=== PATIENT | male | born 1965 | race Two or more races ===

== ENCOUNTER 2018-12-27 10:53 | Day surgery (SDC) | payer OTHER ==
[~2018-12-27] VITALS: Ht 172.7 cm; Wt 132.9 kg
--- NOTE | 2018-12-27 11:15 | NUR ---
PT ADMITTED TO [facility]. AGREES WITH PLANNED SURGER. MEDS, ALLERGIES AND HX REVIEWED. LUNG SOUNDS CLEAR.
--- NOTE | 2018-12-27 12:04 | NUR ---
12/27/18 1204 Belkis Flores ANCEF 3 GRAMS IVPB GIVEN AT 1136.
--- NOTE | 2018-12-27 13:31 | NUR ---
FROM OR TO PACU AT 1323 VSS PATIENT ASLEEP AND LMA IN PLACE AND FACE TENT. MERARI WRAP IN PLACE CDI ELEVATED ON PILLOWS
--- NOTE | 2018-12-27 14:08 | NUR ---
FIRST DOSE OF PAIN RX GIVEN AT 1345 SECOND DOSE GIVEN AT 1400 EACH DOSE OF 50 MCG TOTRATED FOR PAIN DOWN TO 4/10. AT 1405 CARE TURNED OVER TO Sindy BOTELLO AFTER REPORT GIVEN
--- NOTE | 2018-12-27 15:01 | NUR ---
Patient up to Ambulate independently. Gait steady. NWB, PIVOTS AND TRANSFERS W/O ASSIST TO WC. Discharge instructions reviewed with patient. Patient verbalizes understanding. Copy given to patient to take home. Patient States Post-Procedure ride home has been arranged. Discharged via wheelchair to private car for ride home.
== END 2018-12-27 23:18 | disposition home or self-care (01) ==
LOC: ORSCMMR 10:53 → ORD 12:30 → ORSCMMR 12:30
PROVIDERS: Orthopaedic Surgery
PROC: 0QSK04Z Reposition Left Fibula with Internal Fixation Device, Open Approach (ICD-10-PCS; principal; 2018-12-27 11:30)
DX: S82.832A Other fracture of upper and lower end of left fibula, initial encounter for closed fracture (principal); I10 Essential (primary) hypertension; E66.01 Morbid (severe) obesity due to excess calories; Z68.41 Body mass index [BMI] 40.0-44.9, adult
CPT/HCPCS: C1713; J0690; J1100; J1885; J2250; J2370; J2405; J3010; J7120

== ENCOUNTER 2019-11-16 10:15 | Emergency (ER) | payer OTHER ==
[~2019-11-16] VITALS: Ht 172.7 cm; Wt 131.5 kg
[2019-11-16 10:55] LABS: BASOPHILS ABSOLUTE AUTO 0.04 K/mm3 (0.00-0.23); BASOPHILS PERCENT AUTO 1 % (0-2); EOSINOPHILS ABSOLUTE AUTO 0.28 K/mm3 (0.00-0.68); EOSINOPHILS PERCENT AUTO 4 % (0-6); Hematocrit 47.7 % (37.0-53.0); Hemoglobin 16.4 g/dL (13.5-17.5); IMMATURE GRAN ABSOLUTE AUTO 0.01 K/mm3 (0.00-0.10); IMMATURE GRAN PERCENT AUTO 0 % (0-1); LYMPHOCYTES ABSOLUTE AUTO 1.42 K/mm3 (0.84-5.20); LYMPHOCYTES PERCENT AUTO 20 % (21-46); MONOCYTES ABSOLUTE AUTO 0.66 K/mm3 (0.16-1.47); MONOCYTES PERCENT AUTO 9 % (4-13); Mean Corpuscular HGB Conc 34.4 g/dL (31.5-36.5); Mean Corpuscular Volume 102 fL (80-100); Mean Platelet Volume 9.9 fL (9.1-12.4); NEUTROPHILS ABSOLUTE AUTO 4.63 K/mm3 (1.96-9.15); NEUTROPHILS PERCENT AUTO 66 % (41-73); Platelet Count 158 K/mm3 (150-400); RDW Coefficient Variation 12.9 % (11.7-14.2); Red Blood Cell Count 4.68 M/mm3 (4.30-5.90); White Blood Cell Count 7.04 K/mm3 (4.00-11.30)
[2019-11-16 11:12] LABS: Alanine Aminotransfer (ALT/SGP 40 U/L (12-78); Albumin, Blood 3.6 g/dL (3.4-5.0); Albumin/Globulin Ratio 0.7 (0.8-1.8); Alk Phos 85 U/L (50-136); Anion Gap 7 mmol/L (6-16); Aspartate Aminotrans (AST/SGOT 54 U/L (12-37); Bilirubin, Total 2.1 mg/dL (0.1-1.0); Blood Urea Nitrogen 10 mg/dL (8-24); CO2, Blood 22 mmol/L (21-32); Calcium, Blood 9.1 mg/dL (8.5-10.1); Chloride, Blood 105 mmol/L (98-108); Creatinine, Blood 0.77 mg/dL (0.60-1.20); Globulin, Blood 5.1 g/dL (2.2-4.0); Glomerular Filtration Rate >60 (60-); Glucose, Blood 108 mg/dL (70-99); Potassium, Blood 3.8 mmol/L (3.5-5.5); Sodium, Blood 134 mmol/L (136-145); Total Protein, Blood 8.7 g/dL (6.4-8.2)
[2019-11-16 11:36] LABS: Source, Urine Clean Catch
[2019-11-16 11:41] LABS: Appearance, Urine Clear (Clear); Blood, Urine Neg (Neg); Color, Urine Yellow (P-Yellow); Glucose Qualitative, Urine Neg (Neg); Ketones, Urine Neg (Neg); Leukocyte Esterase, Urine 1+ (Neg); Nitrite, Urine Neg (Neg); Protein, Urine 2+ (Neg); Urobilinogen, Urine 2+ (Normal)
[2019-11-16 11:52] LABS: Bilirubin, Urine 1+ (Neg)
[2019-11-16 11:54] LABS: Bacteria Rare /hpf; Mucus Light (0-Heavy); Red Blood Cells, Urine 0-2 /hpf (0-2); Squamous Epithelial Cells Not Seen /hpf (Few)
[2019-11-16] MEDS ORDERED: Sucralfate1 GM PO (13:16)
[2019-11-16] MEDS ORDERED: Pepcid20 MG PO (13:16)
[2019-11-16] MEDS ORDERED: ONDA4ODT MM (13:16)
== END 2019-11-16 13:49 | disposition home or self-care (01) ==
LOC: ER 10:15
PROVIDERS: Emergency Medicine
DX: K29.20 Alcoholic gastritis without bleeding (principal); D53.9 Nutritional anemia, unspecified; Z72.89 Other problems related to lifestyle; F17.220 Nicotine dependence, chewing tobacco, uncomplicated
CPT/HCPCS: 36415; 74022; 80053; 81001; 83690; 85025; 87086; 93005; 93010; 96374; 99284-25; J2405; J3010; J7030

== ENCOUNTER → 2019-12-11 | Outpatient (CLI) | payer OTHER ==
[~2019-12-11] MED LIST: ONDA4ODT MM; Pepcid20 MG PO; Sucralfate1 GM PO
== END | disposition home or self-care (01) ==
LOC: LAB SHORT 12:53 → LAB SRC 12:53
DX: K29.70 Gastritis, unspecified, without bleeding (principal)
CPT/HCPCS: 87338

== ENCOUNTER → 2019-12-12 | Outpatient (CLI) | payer OTHER ==
[2019-12-18 14:43] LABS: Stool Occult Bld Immuno 1 Positive (NEGATIVE)
== END | disposition home or self-care (01) ==
LOC: LAB 16:10 → LAB SHORT 16:10
PROVIDERS: Family Medicine
DX: Z12.11 Encounter for screening for malignant neoplasm of colon (principal)
CPT/HCPCS: G0328

== ENCOUNTER 2020-05-05 11:19 | Day surgery (SDC) | payer OTHER ==
[~2020-05-05] VITALS: Ht 172.7 cm; Wt 115.5 kg
== END 2020-05-05 13:32 | disposition home or self-care (01) ==
LOC: ORSCSDS 11:19
PROVIDERS: Internal Medicine Gastroenterology
PROC: 0DBK8ZX Excision of Ascending Colon, Via Natural or Artificial Opening Endoscopic, Diagnostic (ICD-10-PCS; principal; 2020-05-05 13:45)
PROC: 0DB68ZX Excision of Stomach, Via Natural or Artificial Opening Endoscopic, Diagnostic (ICD-10-PCS; principal; 2020-05-05 13:45)
PROC: 0DBN8ZX Excision of Sigmoid Colon, Via Natural or Artificial Opening Endoscopic, Diagnostic (ICD-10-PCS; principal; 2020-05-05 13:45)
PROC: 0DB98ZX Excision of Duodenum, Via Natural or Artificial Opening Endoscopic, Diagnostic (ICD-10-PCS; principal; 2020-05-05 13:45)
DX: R10.13 Epigastric pain (principal); K29.40 Chronic atrophic gastritis without bleeding; B96.81 Helicobacter pylori [H. pylori] as the cause of diseases classified elsewhere; D12.5 Benign neoplasm of sigmoid colon; K52.9 Noninfective gastroenteritis and colitis, unspecified; Z12.11 Encounter for screening for malignant neoplasm of colon; E66.01 Morbid (severe) obesity due to excess calories; Z68.38 Body mass index [BMI] 38.0-38.9, adult
CPT/HCPCS: 88305; J2704

== ENCOUNTER 2022-04-11 16:48 | Emergency (ER) | payer OTHER ==
[~2022-04-11] VITALS: Ht 172.7 cm; Wt 131.5 kg
[~2022-04-11 16:48] MED LIST changes: +FURO20 PO; +POTA10T PO
[2022-04-15] MEDS ORDERED: Lasix40 MG PO (09:25)
[2022-04-15] MEDS ORDERED: Aldactone100 MG PO (09:25)
== END 2022-04-11 17:12 | disposition home or self-care (01) ==
LOC: ER 16:48
DX: R18.8 Other ascites (principal); K70.9 Alcoholic liver disease, unspecified; F17.220 Nicotine dependence, chewing tobacco, uncomplicated
CPT/HCPCS: 99282

== ENCOUNTER 2022-06-16 13:35 | Day surgery (SDC) | payer OTHER ==
[~2022-06-16 13:35] MED LIST changes: +Aldactone100 MG PO; +Lasix40 MG PO
== END 2022-06-17 23:39 | disposition home or self-care (01) ==
LOC: ATC 13:35 → US 13:35 → ATC 06-17 23:39
DX: K70.31 Alcoholic cirrhosis of liver with ascites (principal)
CPT/HCPCS: 49083; 96365; P9041; P9046

== ENCOUNTER 2022-07-01 08:33 | Day surgery (SDC) | payer OTHER ==
[~2022-07-01] VITALS: Ht 172.7 cm; Wt 117.2 kg
[2022-07-01] MEDS ORDERED: ALDACTONE100 MG (09:12)
[2022-07-01] MEDS ORDERED: TAMS.4ER (09:12)
--- NOTE | 2022-07-01 09:19 | NUR ---
07/01/22 0919 RIKI DUARTE 2 ATTEMPTS AT IV. FIRST ATTEMPT BY MA IN R HAND MISSED. SECOND ATTEMPT BY MA IN R FOREARM SUCCESSFUL.
== END 2022-07-01 10:41 | disposition home or self-care (01) ==
LOC: ORSCSDS 08:33
PROVIDERS: Internal Medicine Gastroenterology
PROC: 0DJ08ZZ Inspection of Upper Intestinal Tract, Via Natural or Artificial Opening Endoscopic (ICD-10-PCS; principal; 2022-07-01 09:30)
DX: K70.31 Alcoholic cirrhosis of liver with ascites (principal); I85.10 Secondary esophageal varices without bleeding; K76.6 Portal hypertension; K31.89 Other diseases of stomach and duodenum; K21.9 Gastro-esophageal reflux disease without esophagitis; E66.9 Obesity, unspecified; Z68.39 Body mass index [BMI] 39.0-39.9, adult; Z79.899 Other long term (current) drug therapy
CPT/HCPCS: A9270; J2704; J7120

== ENCOUNTER 2022-07-14 08:44 | Day surgery (SDC) | payer OTHER ==
[~2022-07-14 08:44] MED LIST changes: +ALDACTONE100 MG PO; +TAMS.4ER PO
[2022-07-14] MEDS ORDERED: AMIL5 PO (11:42)
[2022-07-14] MEDS ORDERED: Lasix40 MG PO (11:42)
== END 2022-07-14 11:40 | disposition home or self-care (01) ==
LOC: ATC 08:44 → US 08:44 → ATC 11:40
DX: K70.31 Alcoholic cirrhosis of liver with ascites (principal); Z79.899 Other long term (current) drug therapy
CPT/HCPCS: 49083; 96365; P9047

== ENCOUNTER 2022-08-11 13:42 | Day surgery (SDC) | payer OTHER ==
[~2022-08-11 13:42] MED LIST changes: +AMIL5 PO
--- NOTE | 2022-08-11 16:27 | NUR ---
STOP TIME FOR 12.5 GRAM OF ALBUMIN IS 1624.
== END 2022-08-11 16:24 | disposition home or self-care (01) ==
LOC: ATC 13:42 → US 13:42 → ATC 16:24
DX: K70.31 Alcoholic cirrhosis of liver with ascites (principal)
CPT/HCPCS: 49083; 96365; P9047

== ENCOUNTER 2022-09-18 16:09 | Inpatient (IN) | payer OTHER ==
[~2022-09-18] VITALS: Ht 182.9 cm; Wt 90.7 kg
[2022-09-18] MEDS ORDERED: CONSTULOSE10 GM/155 PO (16:25)
[2022-09-18 16:31] LABS: BASOPHILS ABSOLUTE AUTO 0.01 K/mm3 (0.00-0.23); BASOPHILS PERCENT AUTO 0 % (0-2); EOSINOPHILS PERCENT AUTO 2 % (0-6); Hematocrit 27.2 % (37.0-53.0); Hemoglobin 9.9 g/dL (13.5-17.5); IMMATURE GRAN ABSOLUTE AUTO 0.01 K/mm3 (0.00-0.10); IMMATURE GRAN PERCENT AUTO 0 % (0-1); LYMPHOCYTES ABSOLUTE AUTO 0.53 K/mm3 (0.84-5.20); LYMPHOCYTES PERCENT AUTO 10 % (21-46); MONOCYTES ABSOLUTE AUTO 0.58 K/mm3 (0.16-1.47); MONOCYTES PERCENT AUTO 11 % (4-13); Mean Corpuscular HGB 38.7 pg (26.0-34.0); Mean Corpuscular HGB Conc 36.4 g/dL (31.5-36.5); Mean Corpuscular Volume 106 fL (80-100); Mean Platelet Volume 8.6 fL (9.1-12.4); NEUTROPHILS ABSOLUTE AUTO 4.05 K/mm3 (1.96-9.15); NEUTROPHILS PERCENT AUTO 77 % (41-73); Platelet Count 116 K/mm3 (150-400); RDW Standard Deviation 54.6 fL (35.1-46.3); Red Blood Cell Count 2.56 M/mm3 (4.30-5.90); White Blood Cell Count 5.28 K/mm3 (4.00-11.30)
[2022-09-18 16:44] LABS: Alanine Aminotransfer (ALT/SGP 40 U/L (12-78); Albumin, Blood 2.4 g/dL (3.4-5.0); Albumin/Globulin Ratio 0.6 (0.8-1.8); Alk Phos 70 U/L (50-136); Anion Gap 8 mmol/L (6-16); Aspartate Aminotrans (AST/SGOT 40 U/L (12-37); Bilirubin, Total 3.3 mg/dL (0.1-1.0); Blood Urea Nitrogen 34 mg/dL (8-24); Bun/Creatinine Ratio 33.3 (12.0-20.0); CO2, Blood 19 mmol/L (21-32); Calcium, Blood 8.5 mg/dL (8.5-10.1); Chloride, Blood 108 mmol/L (98-108); Creatinine, Blood 1.02 mg/dL (0.60-1.20); Ethanol (Alcohol), Blood, Med <3 mg/dL; Globulin, Blood 3.9 g/dL (2.2-4.0); Glomerular Filtration Rate 86 (60-); Glucose, Blood 128 mg/dL (70-99); Potassium, Blood 5.3 mmol/L (3.5-5.5); Sodium, Blood 135 mmol/L (136-145); Total Protein, Blood 6.3 g/dL (6.4-8.2)
[2022-09-18] MEDS ORDERED: K-Dur10 MEQ PO (23:17)
[2022-09-18] MEDS ORDERED: OMEP20ER PO (23:18)
--- NOTE | 2022-09-18 23:46 | NUR ---
ADMISSION: PATIENT IS RECIEVED FROM ER, VIA STRETCH. ABLE TO STAND AND AMB. TO THE BED WITH ASSIST OF 1. VSS, NO REPORT OF PAIN. PATIENT IS A&O TO SELF, PLACE AND FAMILY. PATIENT IS DIRECTABLE BUT IMPULSIVE. PATIENT AND SIGNIFICANT OTHER ARE OREINTED TO THE ROOM AND CALL CAIN.
--- NOTE | 2022-09-19 04:56 | NUR ---
SHIFT SUMMARY: PATIENT IS A&OX3 BUT IMPULSIVE AND FORGET AT TIMES. USING CALL CAIN FOR ASSIST OOB SOME OF THE TIME. PATIENT HAD 1 VERY SMALL BM AND HAD VOIDED RODRICK URINE. NO REPORTS OF PAIN. IVF INFUSING PER MD ORDER. BED ALARM IN ON FOR SAFETY.
[2022-09-19 05:28] LABS: BASOPHILS ABSOLUTE AUTO 0.02 K/mm3 (0.00-0.23); BASOPHILS PERCENT AUTO 0 % (0-2); EOSINOPHILS PERCENT AUTO 2 % (0-6); Hematocrit 28.5 % (37.0-53.0); IMMATURE GRAN ABSOLUTE AUTO 0.02 K/mm3 (0.00-0.10); IMMATURE GRAN PERCENT AUTO 0 % (0-1); LYMPHOCYTES ABSOLUTE AUTO 0.82 K/mm3 (0.84-5.20); LYMPHOCYTES PERCENT AUTO 12 % (21-46); MONOCYTES ABSOLUTE AUTO 0.76 K/mm3 (0.16-1.47); MONOCYTES PERCENT AUTO 11 % (4-13); Mean Corpuscular HGB 37.6 pg (26.0-34.0); Mean Corpuscular HGB Conc 35.1 g/dL (31.5-36.5); Mean Corpuscular Volume 107 fL (80-100); Mean Platelet Volume 8.9 fL (9.1-12.4); NEUTROPHILS ABSOLUTE AUTO 5.17 K/mm3 (1.96-9.15); NEUTROPHILS PERCENT AUTO 75 % (41-73); Platelet Count 115 K/mm3 (150-400); RDW Coefficient Variation 14.3 % (11.7-14.2); RDW Standard Deviation 56.1 fL (35.1-46.3); Red Blood Cell Count 2.66 M/mm3 (4.30-5.90); White Blood Cell Count 6.89 K/mm3 (4.00-11.30)
[2022-09-19 05:43] LABS: International Normalized Ratio 1.43; Prothrombin Time Results 14.7 Sec (9.7-11.5)
[2022-09-19 05:54] LABS: Albumin, Blood 2.8 g/dL (3.4-5.0); Albumin/Globulin Ratio 0.7 (0.8-1.8); Bilirubin, Total 4.6 mg/dL (0.1-1.0); Creatinine, Blood 0.97 mg/dL (0.60-1.20); Globulin, Blood 4.2 g/dL (2.2-4.0); Potassium, Blood 5.2 mmol/L (3.5-5.5)
--- NOTE | 2022-09-19 20:10 | NUR ---
SUMMARY- PT A/O X4. PLEASANT AND COOPERATIVE, JOVIAL. SBA TO BATHROOM. STATES HE HAD 2 LOOSE STOOLS TODAY BUT KIND OF SMALL. TOLERATING FOOD AND FLUID. SOUND LIKE MENTATION MUCH IMPROVED FROM ADMIT. SIGN OTHER IN ROOM WITH PT HELPING HIM ALL DAY. GETTING ALONG GOOD. STARTED HEPATIC DIET AND TOLERATED WELL. PLAN FOR PARACENTECIS TOMORROW, AND TO HOLD LOVENOX IN AM. AYAN SARAH.
[2022-09-20 05:23] LABS: BASOPHILS ABSOLUTE AUTO 0.02 K/mm3 (0.00-0.23); BASOPHILS PERCENT AUTO 0 % (0-2); EOSINOPHILS ABSOLUTE AUTO 0.17 K/mm3 (0.00-0.68); EOSINOPHILS PERCENT AUTO 3 % (0-6); Hematocrit 26.1 % (37.0-53.0); IMMATURE GRAN ABSOLUTE AUTO 0.02 K/mm3 (0.00-0.10); IMMATURE GRAN PERCENT AUTO 0 % (0-1); LYMPHOCYTES ABSOLUTE AUTO 0.86 K/mm3 (0.84-5.20); LYMPHOCYTES PERCENT AUTO 14 % (21-46); MONOCYTES ABSOLUTE AUTO 0.93 K/mm3 (0.16-1.47); MONOCYTES PERCENT AUTO 15 % (4-13); Mean Corpuscular HGB 37.2 pg (26.0-34.0); Mean Corpuscular HGB Conc 34.5 g/dL (31.5-36.5); Mean Corpuscular Volume 108 fL (80-100); Mean Platelet Volume 8.9 fL (9.1-12.4); NEUTROPHILS ABSOLUTE AUTO 4.37 K/mm3 (1.96-9.15); NEUTROPHILS PERCENT AUTO 69 % (41-73); Platelet Count 109 K/mm3 (150-400); RDW Coefficient Variation 14.3 % (11.7-14.2); RDW Standard Deviation 57.1 fL (35.1-46.3); Red Blood Cell Count 2.42 M/mm3 (4.30-5.90); White Blood Cell Count 6.37 K/mm3 (4.00-11.30)
[2022-09-20 05:41] LABS: Albumin, Blood 2.5 g/dL (3.4-5.0); Albumin/Globulin Ratio 0.6 (0.8-1.8); Bilirubin, Total 3.7 mg/dL (0.1-1.0); Bun/Creatinine Ratio 23.4 (12.0-20.0); Calcium, Blood 8.5 mg/dL (8.5-10.1); Creatinine, Blood 1.28 mg/dL (0.60-1.20); Percent Saturation 81.3 % (20.0-50.0); Potassium, Blood 4.9 mmol/L (3.5-5.5); Total Protein, Blood 6.5 g/dL (6.4-8.2)
--- NOTE | 2022-09-20 05:41 | NUR ---
SHIFT SUMMARY: PATIENT HAS HAD 5 BM'S THIS SHIFT, ALL SMALL TO MEDIUM. UP AMBULATING IN ROOM AND FELDMAN WITH STEADY GAIT. REPORTED NAUSEA AND WAS GIVEN ZOFRAN WITH GOOD EFFECT. VSS, NO REPORTS OF PAIN.
[2022-09-20 14:31] LABS: Bun/Creatinine Ratio 27.1 (12.0-20.0); Creatinine, Blood 1.07 mg/dL (0.60-1.20); Potassium, Blood 3.6 mmol/L (3.5-5.5)
--- NOTE | 2022-09-20 17:15 | NUR ---
SUMMARY- PT A/O 3-4, FORGETFUL. PLEASANT AND COOPERATIVE. PT HAD THROCENTESIS TODAY WITH 9L DRAINED. ABD IS WAY LESS DISTENDED. PT HAS BEEN AMBULATORY IN [facility]. TOLERATING FOOD AND FLUIDS. DR OLMSTEAD ADJUSTING SOME OF HIS MEDS AND MONITORING KIDNEY FUNCTION, IN RELATION TO POSSIBLE HEPATORENAL COMPLICATIONS- BILIRUBIN CONT TO DECREASE. PT STATES HE HASN'T HAD A BM TODAY. GIVING ALBUMIN ONCE AFTER THORO AND AN ADDITIONAL 4 DOSES ORDERED- WILL REPORT TO ABRAHAM BOTELLO.
[2022-09-21 04:38] LABS: BASOPHILS ABSOLUTE AUTO 0.03 K/mm3 (0.00-0.23); BASOPHILS PERCENT AUTO 1 % (0-2); EOSINOPHILS ABSOLUTE AUTO 0.15 K/mm3 (0.00-0.68); EOSINOPHILS PERCENT AUTO 4 % (0-6); Hematocrit 22.7 % (37.0-53.0); Hemoglobin 8.1 g/dL (13.5-17.5); IMMATURE GRAN ABSOLUTE AUTO 0.01 K/mm3 (0.00-0.10); IMMATURE GRAN PERCENT AUTO 0 % (0-1); LYMPHOCYTES ABSOLUTE AUTO 0.68 K/mm3 (0.84-5.20); LYMPHOCYTES PERCENT AUTO 17 % (21-46); MONOCYTES PERCENT AUTO 15 % (4-13); Mean Corpuscular HGB Conc 35.7 g/dL (31.5-36.5); Mean Corpuscular Volume 107 fL (80-100); Mean Platelet Volume 8.7 fL (9.1-12.4); NEUTROPHILS ABSOLUTE AUTO 2.58 K/mm3 (1.96-9.15); NEUTROPHILS PERCENT AUTO 64 % (41-73); Platelet Count 90 K/mm3 (150-400); RDW Standard Deviation 54.9 fL (35.1-46.3); Red Blood Cell Count 2.13 M/mm3 (4.30-5.90); White Blood Cell Count 4.05 K/mm3 (4.00-11.30)
[2022-09-21 04:51] LABS: International Normalized Ratio 1.56; Prothrombin Time Results 15.9 Sec (9.7-11.5)
[2022-09-21 04:55] LABS: Bun/Creatinine Ratio 26.5 (12.0-20.0); Calcium, Blood 8.3 mg/dL (8.5-10.1); Creatinine, Blood 1.13 mg/dL (0.60-1.20); Potassium, Blood 4.2 mmol/L (3.5-5.5)
--- NOTE | 2022-09-21 06:40 | NUR ---
SHIFT SUMMARY: PT A/O X 4 IND IN ROOM. PT SLEPT OFF AND ON THROUGH THE NIGHT. HE REPORTED FEELING MUCH BETTER AND HE CAME OUT TO AMBULATE HALLS 5-6 TIMES THROUGH THE NIGHT. STEADY ON HIS FEET WITH WALKER. PT WAS PLEASANT AND COOPERATIVE WITH CARES. HE HAD ONE BM THIS SHIFT. AMMONIA LEVEL IMPROVED AT 112. PT REPORTS MENTATION MUCH IMPROVED. HE DID HAVE ONE EPISODE OF NAUSEA HE REPORTED AFTER HAVING A BM. ZOFRAN GIVEN AND EFFECTIVE IN TREATING NAUSEA.
--- NOTE | 2022-09-21 18:43 | NUR ---
END OF SHIFT SUMMARY: PATIENT ALERT AND ORIENTED X 4 THIS MORNING. PATIENT HAS GARBLED SPEECH AND WILL MAKE COMMENTS THAT SEEM UNRELATED. PATIENT AMBULATED IN THE HALLWAY MULTIPLE TIMES WITH THE FWW. PATIENT REPORTED THAT HE DIDN'T FEEL DIZZY, BUT THAT HE FELT "DIFFERENT" AND THOUGHT HE SHOULD BRING IT WITH HIM. PATIENT STEADY ON HIS FEET. PATIENT DENIED DIZZINESS OR LIGHTHEADEDNESS WITH POSITION CHANGES OR WITH AMBULATION. PATIENT HAD 2 BOWEL MOVEMENTS TODAY. ABDOMEN STARTED THE SHIFT SOFT AND NON-TENDER. BY THE END OF THE SHIFT, IT HAD INCREASED FIRMNESS AND SIZE, BUT WAS STILL NON-TENDER.
[2022-09-22 06:12] LABS: Albumin, Blood 2.9 g/dL (3.4-5.0); Anion Gap 9 mmol/L (6-16); Blood Urea Nitrogen 30 mg/dL (8-24); Bun/Creatinine Ratio 25.6 (12.0-20.0); CO2, Blood 20 mmol/L (21-32); Calcium, Blood 8.5 mg/dL (8.5-10.1); Chloride, Blood 104 mmol/L (98-108); Creatinine, Blood 1.17 mg/dL (0.60-1.20); Glomerular Filtration Rate 73 (60-); Glucose, Blood 134 mg/dL (70-99); Phosphorus, Blood 3.1 mg/dL (2.5-4.9); Potassium, Blood 4.1 mmol/L (3.5-5.5); Sodium, Blood 133 mmol/L (136-145)
--- NOTE | 2022-09-22 07:10 | NUR ---
PT HAD A FALL TO FLOOR THIS MORNING AT 0640 IN HIS ROOM. PT REPORTED HE PUT HIS SHOES ON AND GOT UP TO AMBULATE IN HIS ROOM AND "THE EYE HOOKS ON THE SIDE OF MY SHOES HOOKED TOGETHER AND CAUSED ME TO TRIP." PT WAS HEARD FALLING FROM OUTSIDE OF HIS ROOM BY THIS RN. ON ENTRANCE PT WAS STANDING UP FROM HIS KNEES. PT ABLE TO STAND UNASSISTED. PT REPORTED HE FELL BACK ONTO HIS LEFT SIDE OF HIS BOTTOM/HIP AND HE ROLLED OVER TO HIS KNEES TO GET UP. PT ASSESSED FOR INJURIES TO LEFT SIDE AND KNEES. NO BRUISING, REDNESS OR SWELLING OBSERVED. PT ABLE TO AMBULATE WITHOUT A LIMP. PT DENIES PAIN WITH AMBULATION. PT REPORTED "THIS WAS TOTALLY MY FAULT." PT REPORTS HE DID NOT HAVE ANY DIZZINESS AND FEELS FINE TO WALK. NOTIFIED RADIOLOGY ORDERLY STACY AND DR. GILL. LEFT DR. GILL A MESSAGE.
[2022-09-22] MEDS ORDERED: PROP10 PO (11:37)
--- NOTE | 2022-09-22 12:03 | NUR ---
NOTES/DISCHARGE SUMMARY: PATIENT A&OX4. PLEASANT AND COOPERATIVE WITH CARE. AMBULATES IN ROOM AND HALLWAYS INDEPENDENTLY. PATIENT USES CALL LIGHT APPROPRIATELY AND ABLE TO ADVOCATE FOR HIS NEEDS. PATIENT DENIED DIZZINESS. PATIENT RECEIVED ALL SCHEDULED MEDICATIONS PRIOR TO DISCHARGE. VITALS SIGNS REVIEWED. PATIENT DISCHARGE HOME. DISCHARGE INSTRUCTIONS PACKET GIVEN TO PATIENT. EDUCATE PATIENT REGARDING ADMITTING DIAGNOSIS, SIGNS AND SYMPTOMS, TREATMENT AND NEW PRESCRIBED MEDICATIONS. PATIENT STATED UNDERSTANDING AND NO FURTHER QUESTIONS. IV DC'D. RX WAS FAXED TO PATIENT PREFERRED PHARMACY ([facility]). ALL PATIENT PERSONAL BELONGINGS WERE SENT HOME WITH THE PATIENT. PATIENT WAS TRANSPORTED VIA WHEELCHAIR BY [employer] TO PATIENT FAMILY'S PRIVATE VEHICLE.
== END 2022-09-22 12:06 | disposition home or self-care (01) | DRG 441 ==
LOC: ER 16:09 → EDBEDREQ 22:31 → MEDS 22:33
PROVIDERS: Internal Medicine; Student in an Organized Health Care Education/Training Program; ADMIT Internal Medicine
PROC: 0W9G3ZZ Drainage of Peritoneal Cavity, Percutaneous Approach (ICD-10-PCS; principal; 2022-09-20)
DX: K76.82 Hepatic encephalopathy (principal); G92.8 Other toxic encephalopathy; D68.9 Coagulation defect, unspecified; K76.6 Portal hypertension; K70.31 Alcoholic cirrhosis of liver with ascites; I95.9 Hypotension, unspecified; D69.6 Thrombocytopenia, unspecified; F17.220 Nicotine dependence, chewing tobacco, uncomplicated; N40.0 Benign prostatic hyperplasia without lower urinary tract symptoms; E86.0 Dehydration; D63.8 Anemia in other chronic diseases classified elsewhere; F10.21 Alcohol dependence, in remission; K72.10 Chronic hepatic failure without coma; Z79.899 Other long term (current) drug therapy; Z79.01 Long term (current) use of anticoagulants; Z98.890 Other specified postprocedural states; W01.0XXA Fall on same level from slipping, tripping and stumbling without subsequent striking against object, initial encounter
CPT/HCPCS: 36415; 49083; 70450; 80048; 80053; 80069; 82140; 82728; 83540; 83550; 85025; 85610; 93005; 93010; 96374; 99285-25; A9270; G0480; J1650; J2405; J7030; P9047

== ENCOUNTER 2022-10-07 08:33 | Day surgery (SDC) | payer OTHER ==
[~2022-10-07 08:33] MED LIST changes: +CONSTULOSE10 GM/155 PO; +K-Dur10 MEQ PO; +OMEP20ER PO; +PROP10 PO
== END 2022-10-07 11:30 | disposition home or self-care (01) ==
LOC: US 08:33 → ATC 08:33 → US 09:00 → ATC 11:30
DX: K70.31 Alcoholic cirrhosis of liver with ascites (principal)
CPT/HCPCS: 49083; P9047

== ENCOUNTER 2022-10-19 08:59 | Day surgery (SDC) | payer OTHER | END 2022-10-19 10:58 | disposition home or self-care (01) | LOC: US 08:59 → ATC 08:59 → US 09:00 → ATC 10:58 | DX: K70.31 Alcoholic cirrhosis of liver with ascites (principal) | CPT/HCPCS: 49083; P9047 ==

== ENCOUNTER 2022-11-18 09:01 | Day surgery (SDC) | payer OTHER | END 2022-11-18 11:19 | disposition home or self-care (01) | LOC: ATC 09:01 → US 09:01 → ATC 11:19 | DX: K70.31 Alcoholic cirrhosis of liver with ascites (principal) | CPT/HCPCS: 49083; 96365; P9047 ==

== ENCOUNTER 2022-12-16 09:31 | Day surgery (SDC) | payer OTHER | END 2022-12-16 14:01 | disposition home or self-care (01) | LOC: US 09:31 → ATC 09:31 → US 10:00 → ATC 14:01 | DX: K70.31 Alcoholic cirrhosis of liver with ascites (principal) | CPT/HCPCS: 49083; P9047 ==

== ENCOUNTER 2022-12-30 09:28 | Day surgery (SDC) | payer OTHER | END 2022-12-30 22:51 | disposition home or self-care (01) | LOC: US 09:28 | DX: K70.31 Alcoholic cirrhosis of liver with ascites (principal) | CPT/HCPCS: 49083 ==

== ENCOUNTER 2023-01-03 16:11 | Inpatient (IN) | payer OTHER ==
[~2023-01-03] VITALS: Ht 172.7 cm; Wt 96.1 kg
[2023-01-03 16:54] LABS: BASOPHILS ABSOLUTE AUTO 0.02 K/mm3 (0.00-0.23); BASOPHILS PERCENT AUTO 0 % (0-2); EOSINOPHILS ABSOLUTE AUTO 0.19 K/mm3 (0.00-0.68); EOSINOPHILS PERCENT AUTO 4 % (0-6); Hematocrit 24.1 % (37.0-53.0); Hemoglobin 8.7 g/dL (13.5-17.5); IMMATURE GRAN ABSOLUTE AUTO 0.02 K/mm3 (0.00-0.10); IMMATURE GRAN PERCENT AUTO 0 % (0-1); LYMPHOCYTES ABSOLUTE AUTO 0.62 K/mm3 (0.84-5.20); LYMPHOCYTES PERCENT AUTO 13 % (21-46); MONOCYTES ABSOLUTE AUTO 0.51 K/mm3 (0.16-1.47); MONOCYTES PERCENT AUTO 10 % (4-13); Mean Corpuscular HGB 33.6 pg (26.0-34.0); Mean Corpuscular HGB Conc 36.1 g/dL (31.5-36.5); Mean Corpuscular Volume 93 fL (80-100); NEUTROPHILS PERCENT AUTO 73 % (41-73); Platelet Count 161 K/mm3 (150-400); RDW Coefficient Variation 15.4 % (11.7-14.2); RDW Standard Deviation 52.2 fL (35.1-46.3); Red Blood Cell Count 2.59 M/mm3 (4.30-5.90); White Blood Cell Count 4.96 K/mm3 (4.00-11.30)
[2023-01-03 17:19] LABS: Albumin, Blood 2.5 g/dL (3.4-5.0); Albumin/Globulin Ratio 0.6 (0.8-1.8); Bilirubin, Total 1.9 mg/dL (0.1-1.0); Bun/Creatinine Ratio 13.2 (12.0-20.0); Calcium, Blood 8.8 mg/dL (8.5-10.1); Creatinine, Blood 2.73 mg/dL (0.60-1.20); Globulin, Blood 4.5 g/dL (2.2-4.0); Potassium, Blood 3.3 mmol/L (3.5-5.5)
[2023-01-03] MEDS ORDERED: RIFA550T2 PO (21:17)
[2023-01-03] MEDS ORDERED: DOCU100 PO (21:18)
[2023-01-03 21:42] LABS: International Normalized Ratio 1.58; Prothrombin Time Results 16.1 Sec (9.7-11.5)
--- NOTE | 2023-01-03 22:05 | NUR ---
ADMIT NOTE HANDOFF RECEIVED FROM MORTGAGE COUNSELOR ADELAIDA. PT ARRIVED TO FLOOR VIA [employer]. PT ORIENTED TO UNIT. PERSONAL POSSESSIONS WITH PT. CALL BUTTON WITHIN REACH.
--- NOTE | 2023-01-04 00:29 | NUR ---
CALLED HOSPITALIST PT VOMITED. PT WAS EXPERIENCING NAUSEA PER ER REPORT, AND IS EXPERIENCING NAUSEA NOW. INFORMED HOSPITALIST. NEW ORDERS IN EMAR
--- NOTE | 2023-01-04 04:12 | NUR ---
SHIFT SUMMARY ADMITTED FOR SYNCOPE/AMS. N/V/WEAKNESS. FULL CODE. WE WILL MONITOR LABS. ON RENAL DIET. ON DIALYSIS 3X'S/WEEK. ON RA. 1 ASSIST TO BSC. VOMITED THIS SHIFT. IV ZOFRAN ORDERED AND ADMINISTERED WITH GOOD EFFECT. HX OF CIRRHOSIS, ETOH. HE IS A&O X4. HEPARIN IS SCHEDULED FOR DVT PROPHYLAXIS. NS INFUSING @ 125 ML/HR. LACTULOSE IS SCHEDULED.
[2023-01-04 04:41] LABS: BASOPHILS ABSOLUTE AUTO 0.02 K/mm3 (0.00-0.23); BASOPHILS PERCENT AUTO 0 % (0-2); EOSINOPHILS ABSOLUTE AUTO 0.22 K/mm3 (0.00-0.68); EOSINOPHILS PERCENT AUTO 4 % (0-6); Hematocrit 21.4 % (37.0-53.0); Hemoglobin 7.7 g/dL (13.5-17.5); IMMATURE GRAN ABSOLUTE AUTO 0.02 K/mm3 (0.00-0.10); IMMATURE GRAN PERCENT AUTO 0 % (0-1); LYMPHOCYTES ABSOLUTE AUTO 0.68 K/mm3 (0.84-5.20); LYMPHOCYTES PERCENT AUTO 12 % (21-46); MONOCYTES ABSOLUTE AUTO 0.43 K/mm3 (0.16-1.47); MONOCYTES PERCENT AUTO 8 % (4-13); Mean Corpuscular HGB 33.9 pg (26.0-34.0); Mean Corpuscular Volume 94 fL (80-100); Mean Platelet Volume 10.5 fL (9.1-12.4); NEUTROPHILS PERCENT AUTO 75 % (41-73); Platelet Count 142 K/mm3 (150-400); RDW Coefficient Variation 15.4 % (11.7-14.2); RDW Standard Deviation 53.1 fL (35.1-46.3); Red Blood Cell Count 2.27 M/mm3 (4.30-5.90); White Blood Cell Count 5.47 K/mm3 (4.00-11.30)
[2023-01-04 05:18] LABS: Magnesium, Blood 2.2 mg/dL (1.6-2.4)
[2023-01-04 05:19] LABS: Albumin/Globulin Ratio 0.5 (0.8-1.8); Bilirubin, Total 1.7 mg/dL (0.1-1.0); Bun/Creatinine Ratio 13.7 (12.0-20.0); Calcium, Blood 8.1 mg/dL (8.5-10.1); Creatinine, Blood 2.34 mg/dL (0.60-1.20); Potassium, Blood 3.9 mmol/L (3.5-5.5)
--- NOTE | 2023-01-04 19:29 | NUR ---
SUMMARY- PT A/O X4, STATES HE FEELS BACK TO BASELINE MENTALLY. INDEPENDANT AND STEADY ON FEET IN ROOM. PT HAVING REGULAR SEMIFORMED, FLUFFY YELLOW/ORANGS BOWEL MOVEMENTS, LACTALOSE IN USE. ABD ROUND, ADCITES BUT BREATHING ADQ, NO SOB. PLAN TO LIKELY DC TOMORROW.
--- NOTE | 2023-01-05 00:36 | NUR ---
PT STATUS OF NOTE: PROPANALOL HAS BEEN HELD BY BOTH AM AND PM SHIFTS DUE TO HYPOTENSION, BP'S LOWER THAN PARAMETERS FOR SAFE ADMINISTRATION.
--- NOTE | 2023-01-05 05:52 | NUR ---
SHIFT SUMMARY ADMITTED FOR SYNCOPE/AMS. FULL CODE. HX OF CIRRHOSIS. PARACENTESIS Q2 WEEKS. HE IS COMPLIANT WITH HOME LACTULOSE. LIVES WITH ROOMMATE. PLAN IS TO RETURN HOME WHEN STABLE. ON RA. RENAL DIET. INDEPENDENT. A&O X4. HE DENIES DIZZYNESS OR DISCOMFORT THIS SHIFT. MULTIPLE SMALL BM'S REPORTED THIS SHIFT.
[2023-01-05 10:04] LABS: BASOPHILS ABSOLUTE AUTO 0.03 K/mm3 (0.00-0.23); BASOPHILS PERCENT AUTO 1 % (0-2); EOSINOPHILS ABSOLUTE AUTO 0.33 K/mm3 (0.00-0.68); EOSINOPHILS PERCENT AUTO 7 % (0-6); Hematocrit 22.4 % (37.0-53.0); Hemoglobin 8.1 g/dL (13.5-17.5); IMMATURE GRAN ABSOLUTE AUTO 0.02 K/mm3 (0.00-0.10); IMMATURE GRAN PERCENT AUTO 0 % (0-1); LYMPHOCYTES ABSOLUTE AUTO 0.81 K/mm3 (0.84-5.20); LYMPHOCYTES PERCENT AUTO 17 % (21-46); MONOCYTES ABSOLUTE AUTO 0.38 K/mm3 (0.16-1.47); MONOCYTES PERCENT AUTO 8 % (4-13); Mean Corpuscular HGB 33.6 pg (26.0-34.0); Mean Corpuscular HGB Conc 36.2 g/dL (31.5-36.5); Mean Corpuscular Volume 93 fL (80-100); NEUTROPHILS ABSOLUTE AUTO 3.27 K/mm3 (1.96-9.15); NEUTROPHILS PERCENT AUTO 68 % (41-73); Platelet Count 148 K/mm3 (150-400); RDW Coefficient Variation 15.3 % (11.7-14.2); RDW Standard Deviation 52.3 fL (35.1-46.3); Red Blood Cell Count 2.41 M/mm3 (4.30-5.90); White Blood Cell Count 4.84 K/mm3 (4.00-11.30)
--- NOTE | 2023-01-05 10:12 | NUR ---
PLEASANT AND COOPERATIVE, AMBULATED IN HALLS, MEDICATED FOR NAUSEA, PATIENT RESTING NOW, NO DISTRESS, CALL LIGHT WITH IN REACH
[2023-01-05 10:21] LABS: Albumin, Blood 2.1 g/dL (3.4-5.0); Albumin/Globulin Ratio 0.5 (0.8-1.8); Bilirubin, Total 1.9 mg/dL (0.1-1.0); Bun/Creatinine Ratio 16.4 (12.0-20.0); Creatinine, Blood 2.14 mg/dL (0.60-1.20); Globulin, Blood 4.2 g/dL (2.2-4.0); Potassium, Blood 3.9 mmol/L (3.5-5.5); Total Protein, Blood 6.3 g/dL (6.4-8.2)
--- NOTE | 2023-01-05 17:25 | NUR ---
PLEASANT AND COOPERATIVE, MAKES NEEDS KNOWN, LS DIMINSHED IN THE BASES, HYPOACTIVE BT, HAD 2 BM TODAY, MEDICATED WITH SCHEDULED LACTULOSE AND PRN DOSE, NO DISTRESS, RIGHT AC D/C DUE TO LEAKING, NEW IV TO LEFT FOREARM SL, PATIENT TOELRATED WITH EASE, CALL LIGHT WITH IN REACH, WILL RELAY TO PM RN
--- NOTE | 2023-01-06 05:39 | NUR ---
SHIFT UNREMARKABLE. PT TOOK 2100 MEDICATIONS WITHOUT DIFFICULTY THEN SLEPT THROUGH REMAINDER OF SHIFT. CALL LIGHT LEFT WITHIN REACH.
[2023-01-06 14:10] LABS: Albumin, Blood 2.1 g/dL (3.4-5.0)
[2023-01-06 17:16] LABS: Automated BF WBC Count 0.064 K/mm3 (0-999)
--- NOTE | 2023-01-06 17:29 | NUR ---
DAYSHIFT SUMMARY Patient confused this morning, wandering around in room, going back and forth from bathroom to hallway. Calling out, stating he needs to use the bathroom, Nurse reassured the patient that he was already in the bathroom. Gave lactulose, aptient has several loose stools this morning. Ultrasound of ABD done, patient had parencentesis this afternoon, 1.2L of fluids removed. Fluid culture pending. Patient continues to be confused. Vitals stable. Will continue plan of care.
[2023-01-06 17:36] LABS: Glucose, Body Fluid 113 mg/dL
[2023-01-06 17:41] LABS: Body Fluid WBC Count 64 /mm3 (0-999); RBC Count, Body Fluid 133 /mm3 (0-0)
[2023-01-06 17:52] LABS: Lactate Dehydrogenase, Body Fl 33 U/L
[2023-01-06 18:02] LABS: Appearance, Body Fluid Clear (Clear); Color, Body Fluid Yellow (None-Yellow)
[2023-01-06 18:07] LABS: Protein, Body Fluid 0.7 g/dL
[2023-01-06 18:18] LABS: Albumin, Body Fluid 0.3 g/dL
[2023-01-06 18:21] LABS: Total Cell Count, Body Fluid 33
--- NOTE | 2023-01-07 04:01 | NUR ---
PT HAS SLEPT ONLY SPORADICALLY THROUGHOUT SHIFT. HAS BEEN ABLE TO PASS SEVERAL LOOSE BMs. EARLY IN MORNING PT COMPLAINED OF SINGULAR BLOODY STOOL. ASYMPTOMATIC WITH VITAL SIGNS WNL AT TIME. ORDERED H+H, AWAITING RESULTS. PT CONTINUES TO BE AOX2-3, PLEASANT AND COOPERATIVE WITH CARE. CALL LIGHT LEFT WITHIN REACH.
[2023-01-07 05:30] LABS: Hematocrit 21.6 % (37.0-53.0); Hemoglobin 7.8 g/dL (13.5-17.5)
[2023-01-07 06:09] LABS: Albumin, Blood 2.1 g/dL (3.4-5.0); Albumin/Globulin Ratio 0.5 (0.8-1.8); Bilirubin, Total 2.8 mg/dL (0.1-1.0); Bun/Creatinine Ratio 17.9 (12.0-20.0); Calcium, Blood 8.7 mg/dL (8.5-10.1); Creatinine, Blood 2.29 mg/dL (0.60-1.20); Globulin, Blood 4.2 g/dL (2.2-4.0); Magnesium, Blood 2.4 mg/dL (1.6-2.4); Potassium, Blood 3.5 mmol/L (3.5-5.5); Total Protein, Blood 6.3 g/dL (6.4-8.2)
[2023-01-07 11:42] LABS: Hematocrit 21.1 % (37.0-53.0); Hemoglobin 7.5 g/dL (13.5-17.5); Mean Corpuscular HGB 33.3 pg (26.0-34.0); Mean Corpuscular HGB Conc 35.5 g/dL (31.5-36.5); Mean Corpuscular Volume 94 fL (80-100); Mean Platelet Volume 10.1 fL (9.1-12.4); Platelet Count 140 K/mm3 (150-400); RDW Coefficient Variation 15.8 % (11.7-14.2); RDW Standard Deviation 54.3 fL (35.1-46.3); Red Blood Cell Count 2.25 M/mm3 (4.30-5.90); White Blood Cell Count 5.24 K/mm3 (4.00-11.30)
[2023-01-07 11:56] LABS: International Normalized Ratio 1.46
[2023-01-07 12:05] LABS: BASOPHILS PERCENT MAN 0 % (0-2); EOSINOPHILS ABSOLUTE MAN 0.05 K/mm3 (0.00-0.68); EOSINOPHILS PERCENT MAN 1 % (0-6); LYMPHOCYTES ABSOLUTE MAN 0.78 K/mm3 (0.84-5.20); LYMPHOCYTES PERCENT MAN 15 % (21-46); MONOCYTES ABSOLUTE MAN 0.41 K/mm3 (0.16-1.47); MONOCYTES PERCENT MAN 8 % (4-13); NEUTROPHILS ABSOLUTE MAN 3.98 K/mm3 (1.96-9.15); SEG NEUTROPHILS PERCENT MAN 76 % (41-73); TOTAL CELLS COUNTED 100
--- NOTE | 2023-01-07 17:51 | NUR ---
SHIFT SUMMARY: PT A&O X2-3. PT HAS BEEN PLEASANT AND COOPERATIVE WITH CARE. PT HYPOTENSIVE THIS AM. MIDODRINE DOSAGE CHANGED TO 7.5 TID AND FLUID CURRENTLY RUNNING AT 125/HR. RECEIVED IN REPORT PT HAD C/O BLOOD STOOL. PT HAS NOT HAD ANY COMPLAINTS OF BLOODY OR LOOSE STOOLS THIS SHIFT. NO PAIN OR N/V. INDEPENDENT IN ROOM. CALL LIGHT IN REACH. WILL CONTINUE TO MONITOR.
[2023-01-08 05:16] LABS: BASOPHILS ABSOLUTE AUTO 0.02 K/mm3 (0.00-0.23); BASOPHILS PERCENT AUTO 0 % (0-2); EOSINOPHILS PERCENT AUTO 4 % (0-6); Hematocrit 21.7 % (37.0-53.0); Hemoglobin 7.6 g/dL (13.5-17.5); IMMATURE GRAN ABSOLUTE AUTO 0.01 K/mm3 (0.00-0.10); IMMATURE GRAN PERCENT AUTO 0 % (0-1); LYMPHOCYTES ABSOLUTE AUTO 1.11 K/mm3 (0.84-5.20); LYMPHOCYTES PERCENT AUTO 23 % (21-46); MONOCYTES ABSOLUTE AUTO 0.48 K/mm3 (0.16-1.47); MONOCYTES PERCENT AUTO 10 % (4-13); Mean Corpuscular HGB 33.5 pg (26.0-34.0); Mean Corpuscular Volume 96 fL (80-100); Mean Platelet Volume 10.7 fL (9.1-12.4); NEUTROPHILS ABSOLUTE AUTO 2.99 K/mm3 (1.96-9.15); NEUTROPHILS PERCENT AUTO 62 % (41-73); Platelet Count 134 K/mm3 (150-400); RDW Coefficient Variation 15.7 % (11.7-14.2); RDW Standard Deviation 54.9 fL (35.1-46.3); Red Blood Cell Count 2.27 M/mm3 (4.30-5.90); White Blood Cell Count 4.81 K/mm3 (4.00-11.30)
[2023-01-08 06:39] LABS: Albumin, Blood 2.1 g/dL (3.4-5.0); Albumin/Globulin Ratio 0.5 (0.8-1.8); Bilirubin, Total 1.3 mg/dL (0.1-1.0); Bun/Creatinine Ratio 19.3 (12.0-20.0); Calcium, Blood 8.3 mg/dL (8.5-10.1); Creatinine, Blood 2.23 mg/dL (0.60-1.20); Globulin, Blood 4.1 g/dL (2.2-4.0); Potassium, Blood 3.6 mmol/L (3.5-5.5); Total Protein, Blood 6.2 g/dL (6.4-8.2)
--- NOTE | 2023-01-08 06:40 | NUR ---
API DEVELOPER SUMMARY PT A/OX3. PLEASANT AND COOPERATIVE. PT REPORTS LOOSE STOOLS; NO BLOOD OBSERVED BY PT. PT HGB 7.6 WITH AM LABS. PT IN BED WITH LONG PERIODS OF REST T/O THE NIGHT. NOT UP MUCH THE NIGHT BEFORE. REVIEWED VITALS; SBP IN THE 90'S. PT ABLE TO MAKE NEEDS KNOWN. CALL LIGHT ACCESSIBLE.
--- NOTE | 2023-01-08 17:24 | NUR ---
SHIFT SUMMARY: PT A&O X3. NO ACUTE CHANGES WITH PT THIS SHIFT. PT PLEASANT AND COOPERATIVE WITH CARE. PT RECEIVED 2 BAGS OF ALBUMIN TO CORRECT LOW 2.1 ALBUMIN. PT TOLERATED WELL. PT STATES HE IS HAVING SEVERAL LOOSE STOOLS BUT ARE STARTING TO BECOME FORMED. ABDOMEN SEVERELY DISTENDED AND FIRM BUT NO PAIN. CALL LIGHT IN REACH. WILL CONTINUE TO MONITOR.
[2023-01-09 05:18] LABS: BASOPHILS ABSOLUTE AUTO 0.01 K/mm3 (0.00-0.23); BASOPHILS PERCENT AUTO 0 % (0-2); EOSINOPHILS ABSOLUTE AUTO 0.16 K/mm3 (0.00-0.68); EOSINOPHILS PERCENT AUTO 4 % (0-6); Hematocrit 20.2 % (37.0-53.0); IMMATURE GRAN ABSOLUTE AUTO 0.01 K/mm3 (0.00-0.10); IMMATURE GRAN PERCENT AUTO 0 % (0-1); LYMPHOCYTES ABSOLUTE AUTO 0.89 K/mm3 (0.84-5.20); LYMPHOCYTES PERCENT AUTO 24 % (21-46); MONOCYTES ABSOLUTE AUTO 0.42 K/mm3 (0.16-1.47); MONOCYTES PERCENT AUTO 11 % (4-13); Mean Corpuscular HGB 33.3 pg (26.0-34.0); Mean Corpuscular HGB Conc 34.7 g/dL (31.5-36.5); Mean Corpuscular Volume 96 fL (80-100); Mean Platelet Volume 10.2 fL (9.1-12.4); NEUTROPHILS ABSOLUTE AUTO 2.25 K/mm3 (1.96-9.15); NEUTROPHILS PERCENT AUTO 60 % (41-73); Platelet Count 98 K/mm3 (150-400); RDW Coefficient Variation 15.9 % (11.7-14.2); RDW Standard Deviation 55.8 fL (35.1-46.3); White Blood Cell Count 3.74 K/mm3 (4.00-11.30)
[2023-01-09 05:40] LABS: Albumin, Blood 2.2 g/dL (3.4-5.0); Albumin/Globulin Ratio 0.6 (0.8-1.8); Bilirubin, Total 2.2 mg/dL (0.1-1.0); Bun/Creatinine Ratio 19.8 (12.0-20.0); Calcium, Blood 8.3 mg/dL (8.5-10.1); Creatinine, Blood 2.12 mg/dL (0.60-1.20); Globulin, Blood 3.7 g/dL (2.2-4.0); Potassium, Blood 3.4 mmol/L (3.5-5.5); Total Protein, Blood 5.9 g/dL (6.4-8.2)
--- NOTE | 2023-01-09 06:17 | NUR ---
ATTENDING PSYCHIATRIST SUMMARY PT A/OX3. PLEASANT AND COOPERATIVE. NO ACUTE EVENTS. PT CONT T/RCV LACTULOSE Q6HRS; HAVING MULTIPLE LOOSE BOWEL MOVEMENTS. NEW 20 G IV PLACED IN LEFT ARM. PT INDEPENDENT IN THE ROOM. ABLE TO MAKE NEEDS KNOWN. PT DENIES SOB, CHEST PAIN/PRESSURE. PT ABD REMAINS DISTENDED AND FIRM. CALL LIGHT ACCESSIBLE. BED LOCKED/LOW.
[2023-01-09 16:17] LABS: BASOPHILS ABSOLUTE AUTO 0.02 K/mm3 (0.00-0.23); BASOPHILS PERCENT AUTO 1 % (0-2); EOSINOPHILS ABSOLUTE AUTO 0.15 K/mm3 (0.00-0.68); EOSINOPHILS PERCENT AUTO 4 % (0-6); Hematocrit 20.5 % (37.0-53.0); IMMATURE GRAN PERCENT AUTO 0 % (0-1); LYMPHOCYTES ABSOLUTE AUTO 0.66 K/mm3 (0.84-5.20); LYMPHOCYTES PERCENT AUTO 19 % (21-46); MONOCYTES ABSOLUTE AUTO 0.39 K/mm3 (0.16-1.47); MONOCYTES PERCENT AUTO 12 % (4-13); Mean Corpuscular HGB 33.7 pg (26.0-34.0); Mean Corpuscular HGB Conc 34.1 g/dL (31.5-36.5); Mean Corpuscular Volume 99 fL (80-100); Mean Platelet Volume 10.1 fL (9.1-12.4); NEUTROPHILS ABSOLUTE AUTO 2.18 K/mm3 (1.96-9.15); NEUTROPHILS PERCENT AUTO 64 % (41-73); Platelet Count 102 K/mm3 (150-400); Red Blood Cell Count 2.08 M/mm3 (4.30-5.90)
--- NOTE | 2023-01-09 16:35 | NUR ---
NO ACUTE CHANGES PT AOX3 AND COOPERATIVE OF MOST CARE. PT REFUSED TO HAVE PARACENTESIS PER DR GALE. PT WANTED TO DC HOME TODAY AND DR SRIVASTAVA CONSULTED DR CHAVIS. PT AGREED TO STAY AND TALK WITH DR CHAVIS ABOUT HIS HEALTHCARE NEEDS. PT INDEPENDENT AND HAS CALL LIGHT WITHIN REACH WILL CONTINUE TO MONITOR.
--- NOTE | 2023-01-10 04:17 | NUR ---
DIRECTOR OF PERSONNEL SUMMARY NO ACUTE EVENTS THROUGHOUT THE NIGHT. A&OX4. PATIENT EFFECTIVELY COMMUNICATES NEEDS. VSS. RR EVEN AND UNLABORED ON RA. PATIENT DENIES ANY SYMPTOMS, INCLUDING PAIN. DR. CHAVIS SPOKE WITH PATIENT AROUND ~2200 YESTERDAY EVENING. PATIENT REPORTS HE IS AGREEABLE WITH DR. CHAVIS'S PLAN TO REMAIN IN THE HOSPITAL FOR THE NEXT SEVERAL DAYS. BED LOW AND LOCKED. CALL LIGHT WITHIN REACH. THIS RN WILL CONTINUE TO MONITOR.
[2023-01-10 05:42] LABS: BASOPHILS ABSOLUTE AUTO 0.01 K/mm3 (0.00-0.23); BASOPHILS PERCENT AUTO 0 % (0-2); EOSINOPHILS ABSOLUTE AUTO 0.21 K/mm3 (0.00-0.68); EOSINOPHILS PERCENT AUTO 5 % (0-6); Hematocrit 21.1 % (37.0-53.0); Hemoglobin 7.1 g/dL (13.5-17.5); IMMATURE GRAN ABSOLUTE AUTO 0.01 K/mm3 (0.00-0.10); IMMATURE GRAN PERCENT AUTO 0 % (0-1); LYMPHOCYTES ABSOLUTE AUTO 0.74 K/mm3 (0.84-5.20); LYMPHOCYTES PERCENT AUTO 19 % (21-46); MONOCYTES ABSOLUTE AUTO 0.47 K/mm3 (0.16-1.47); MONOCYTES PERCENT AUTO 12 % (4-13); Mean Corpuscular HGB 33.2 pg (26.0-34.0); Mean Corpuscular HGB Conc 33.6 g/dL (31.5-36.5); Mean Corpuscular Volume 99 fL (80-100); Mean Platelet Volume 9.8 fL (9.1-12.4); NEUTROPHILS ABSOLUTE AUTO 2.47 K/mm3 (1.96-9.15); NEUTROPHILS PERCENT AUTO 63 % (41-73); Platelet Count 105 K/mm3 (150-400); RDW Coefficient Variation 16.1 % (11.7-14.2); RDW Standard Deviation 57.8 fL (35.1-46.3); Red Blood Cell Count 2.14 M/mm3 (4.30-5.90); White Blood Cell Count 3.91 K/mm3 (4.00-11.30)
[2023-01-10 06:01] LABS: Albumin, Blood 2.4 g/dL (3.4-5.0); Albumin/Globulin Ratio 0.7 (0.8-1.8); Bilirubin, Total 1.7 mg/dL (0.1-1.0); Bun/Creatinine Ratio 21.6 (12.0-20.0); Calcium, Blood 8.3 mg/dL (8.5-10.1); Creatinine, Blood 1.94 mg/dL (0.60-1.20); Globulin, Blood 3.6 g/dL (2.2-4.0)
[2023-01-10 10:06] LABS: Stool Occult Blood Guaiac 1 Neg (Neg)
--- NOTE | 2023-01-10 17:10 | NUR ---
NO ACUTE CHANGES PT AOX4 AND COOPERATIVE OF CARE. NO DISTRESS NOTED AND ABLE TO MAKE ALL NEEDS KNOWN. INDEPENDENT IN ROOM AND CALL LIGHT WITHIN REACH. WILL CONTINUE TO MONITOR.
--- NOTE | 2023-01-11 05:01 | NUR ---
STEWARD/STEWARDESS ROOM SUMMARY NO ACUTE EVENTS THROUGHOUT THE NIGHT. A&OX4. PATIENT EFFECTIVELY COMMUNICATES NEEDS. VSS. RR EVEN AND UNLABORED ON RA. SANDROSTATIN INFUSING PER ORDERS. NO REPORTS OF PAIN OR OTHER SYMPTOMS THIS SHIFT. BED LOW AND LOCKED. CALL LIGHT WITHIN REACH. THIS RN WILL CONTINUE TO MONITOR.
[2023-01-11 09:35] LABS: Albumin, Blood 2.8 g/dL (3.4-5.0); Albumin/Globulin Ratio 0.9 (0.8-1.8); Bilirubin, Total 1.3 mg/dL (0.1-1.0); Bun/Creatinine Ratio 21.3 (12.0-20.0); Creatinine, Blood 1.97 mg/dL (0.60-1.20); Total Protein, Blood 5.8 g/dL (6.4-8.2)
[2023-01-11 09:37] LABS: BASOPHILS ABSOLUTE AUTO 0.01 K/mm3 (0.00-0.23); BASOPHILS PERCENT AUTO 0 % (0-2); EOSINOPHILS ABSOLUTE AUTO 0.13 K/mm3 (0.00-0.68); EOSINOPHILS PERCENT AUTO 4 % (0-6); Hematocrit 18.6 % (37.0-53.0); Hemoglobin 6.5 g/dL (13.5-17.5); IMMATURE GRAN ABSOLUTE AUTO 0.01 K/mm3 (0.00-0.10); IMMATURE GRAN PERCENT AUTO 0 % (0-1); LYMPHOCYTES ABSOLUTE AUTO 0.47 K/mm3 (0.84-5.20); LYMPHOCYTES PERCENT AUTO 15 % (21-46); MONOCYTES ABSOLUTE AUTO 0.37 K/mm3 (0.16-1.47); MONOCYTES PERCENT AUTO 12 % (4-13); Mean Corpuscular HGB 34.9 pg (26.0-34.0); Mean Corpuscular HGB Conc 34.9 g/dL (31.5-36.5); Mean Corpuscular Volume 100 fL (80-100); Mean Platelet Volume 10.6 fL (9.1-12.4); NEUTROPHILS ABSOLUTE AUTO 2.13 K/mm3 (1.96-9.15); NEUTROPHILS PERCENT AUTO 68 % (41-73); Platelet Count 77 K/mm3 (150-400); RDW Coefficient Variation 16.2 % (11.7-14.2); RDW Standard Deviation 58.4 fL (35.1-46.3); Red Blood Cell Count 1.86 M/mm3 (4.30-5.90); White Blood Cell Count 3.12 K/mm3 (4.00-11.30)
--- NOTE | 2023-01-11 19:43 | NUR ---
PT ALERT NO S/S OF ACUTE DISTRESS, SAFETY MEASURES IN PLACE REPORT GIVEN TO ON COMING NURSE.
[2023-01-12 05:23] LABS: BASOPHILS ABSOLUTE AUTO 0.01 K/mm3 (0.00-0.23); BASOPHILS PERCENT AUTO 0 % (0-2); EOSINOPHILS PERCENT AUTO 6 % (0-6); Hematocrit 19.7 % (37.0-53.0); Hemoglobin 6.8 g/dL (13.5-17.5); IMMATURE GRAN PERCENT AUTO 0 % (0-1); LYMPHOCYTES ABSOLUTE AUTO 0.52 K/mm3 (0.84-5.20); LYMPHOCYTES PERCENT AUTO 14 % (21-46); MONOCYTES ABSOLUTE AUTO 0.39 K/mm3 (0.16-1.47); MONOCYTES PERCENT AUTO 11 % (4-13); Mean Corpuscular HGB 33.7 pg (26.0-34.0); Mean Corpuscular HGB Conc 34.5 g/dL (31.5-36.5); Mean Corpuscular Volume 98 fL (80-100); NEUTROPHILS ABSOLUTE AUTO 2.52 K/mm3 (1.96-9.15); NEUTROPHILS PERCENT AUTO 69 % (41-73); Platelet Count 72 K/mm3 (150-400); RDW Coefficient Variation 17.2 % (11.7-14.2); RDW Standard Deviation 60.3 fL (35.1-46.3); Red Blood Cell Count 2.02 M/mm3 (4.30-5.90); White Blood Cell Count 3.64 K/mm3 (4.00-11.30)
[2023-01-12 06:09] LABS: Albumin, Blood 3.3 g/dL (3.4-5.0); Albumin/Globulin Ratio 1.3 (0.8-1.8); Bilirubin, Total 2.6 mg/dL (0.1-1.0); Bun/Creatinine Ratio 24.5 (12.0-20.0); Calcium, Blood 8.3 mg/dL (8.5-10.1); Creatinine, Blood 1.84 mg/dL (0.60-1.20); Globulin, Blood 2.6 g/dL (2.2-4.0); Potassium, Blood 3.6 mmol/L (3.5-5.5); Total Protein, Blood 5.9 g/dL (6.4-8.2)
--- NOTE | 2023-01-12 07:21 | NUR ---
SHIFT SUMMARY NO ACUTE CHANGES. PT IS INDEPENDENT IN THE ROOM. PT STILL TOLERATING OCTREATIDE DRIP. EAGER TO GO HOME. AXO 3. BED IN LOWEST POSITION AND CALL LIGHT IN REACH.
--- NOTE | 2023-01-12 19:18 | NUR ---
PT ALERT NO S/S OF ACUTE DISTRESS, SAFETY MEASURES IN PLACE REPORT GIVEN TO ON COMING NURSE.
--- NOTE | 2023-01-13 03:39 | NUR ---
RECEIVED REPORT AT 0310. PT RPORTS HE IS SCHEDULED FOR A PERICENTESIS TODAY. PT PROVIDED WITH ICE WATER PER REQUEST. NO OTHER REQUESTS AT THIS TIME. WILL CONTINUE TO MONITOR UNTIL AM SHIFT CHANGE.
[2023-01-13 05:15] LABS: BASOPHILS ABSOLUTE AUTO 0.02 K/mm3 (0.00-0.23); BASOPHILS PERCENT AUTO 0 % (0-2); EOSINOPHILS ABSOLUTE AUTO 0.23 K/mm3 (0.00-0.68); EOSINOPHILS PERCENT AUTO 5 % (0-6); Hemoglobin 7.6 g/dL (13.5-17.5); IMMATURE GRAN ABSOLUTE AUTO 0.02 K/mm3 (0.00-0.10); IMMATURE GRAN PERCENT AUTO 0 % (0-1); LYMPHOCYTES ABSOLUTE AUTO 0.51 K/mm3 (0.84-5.20); LYMPHOCYTES PERCENT AUTO 11 % (21-46); MONOCYTES ABSOLUTE AUTO 0.55 K/mm3 (0.16-1.47); MONOCYTES PERCENT AUTO 12 % (4-13); Mean Corpuscular HGB 33.8 pg (26.0-34.0); Mean Corpuscular HGB Conc 34.5 g/dL (31.5-36.5); Mean Corpuscular Volume 98 fL (80-100); Mean Platelet Volume 9.9 fL (9.1-12.4); NEUTROPHILS ABSOLUTE AUTO 3.23 K/mm3 (1.96-9.15); NEUTROPHILS PERCENT AUTO 71 % (41-73); Platelet Count 80 K/mm3 (150-400); RDW Coefficient Variation 17.2 % (11.7-14.2); RDW Standard Deviation 58.8 fL (35.1-46.3); Red Blood Cell Count 2.25 M/mm3 (4.30-5.90); White Blood Cell Count 4.56 K/mm3 (4.00-11.30)
[2023-01-13 05:43] LABS: Albumin, Blood 3.6 g/dL (3.4-5.0); Albumin/Globulin Ratio 1.6 (0.8-1.8); Bilirubin, Total 5.4 mg/dL (0.1-1.0); Bun/Creatinine Ratio 25.3 (12.0-20.0); Calcium, Blood 8.6 mg/dL (8.5-10.1); Creatinine, Blood 1.74 mg/dL (0.60-1.20); Globulin, Blood 2.3 g/dL (2.2-4.0); Potassium, Blood 3.6 mmol/L (3.5-5.5); Total Protein, Blood 5.9 g/dL (6.4-8.2)
--- NOTE | 2023-01-13 06:12 | NUR ---
SHIFT SUMMARY - NO ACUTE CHANGES SINCE I ASSUMED CARE TONIGHT. PT IS UNDER THE UNDERTANDING HE IS O HAVE A PERICENTESIS TODAY - WILL REPORT THIS OFF TO ONCOMING SHIFT. PT HAS DENIED COMPLAINTS TONIGHT. WILL CONTINUE TO MONITOR UNTIL AM SHIFT CHANGE. FLUIDS AT BEDSIDE. CALL LIGHT WITHIN REACH.
[2023-01-13 09:56] LABS: Stool Occult Blood Guaiac 1 Pos (Neg)
--- NOTE | 2023-01-13 19:18 | NUR ---
PT ALERT NO S/S OF ACUTE DISTRESS, SAFETY MEASURES IN PLACE REPORT GIVEN TO ON COMING NURSE.
[2023-01-14 04:51] LABS: BASOPHILS ABSOLUTE AUTO 0.03 K/mm3 (0.00-0.23); BASOPHILS PERCENT AUTO 1 % (0-2); EOSINOPHILS PERCENT AUTO 4 % (0-6); Hematocrit 21.8 % (37.0-53.0); Hemoglobin 7.5 g/dL (13.5-17.5); IMMATURE GRAN ABSOLUTE AUTO 0.01 K/mm3 (0.00-0.10); IMMATURE GRAN PERCENT AUTO 0 % (0-1); LYMPHOCYTES ABSOLUTE AUTO 0.58 K/mm3 (0.84-5.20); LYMPHOCYTES PERCENT AUTO 12 % (21-46); MONOCYTES ABSOLUTE AUTO 0.69 K/mm3 (0.16-1.47); MONOCYTES PERCENT AUTO 14 % (4-13); Mean Corpuscular HGB 34.1 pg (26.0-34.0); Mean Corpuscular HGB Conc 34.4 g/dL (31.5-36.5); Mean Corpuscular Volume 99 fL (80-100); Mean Platelet Volume 10.1 fL (9.1-12.4); NEUTROPHILS ABSOLUTE AUTO 3.43 K/mm3 (1.96-9.15); NEUTROPHILS PERCENT AUTO 70 % (41-73); Platelet Count 80 K/mm3 (150-400); RDW Coefficient Variation 17.2 % (11.7-14.2); RDW Standard Deviation 59.3 fL (35.1-46.3); White Blood Cell Count 4.94 K/mm3 (4.00-11.30)
[2023-01-14 05:12] LABS: Albumin, Blood 3.7 g/dL (3.4-5.0); Albumin/Globulin Ratio 1.7 (0.8-1.8); Bilirubin, Total 2.8 mg/dL (0.1-1.0); Bun/Creatinine Ratio 24.6 (12.0-20.0); Calcium, Blood 8.5 mg/dL (8.5-10.1); Creatinine, Blood 1.75 mg/dL (0.60-1.20); Globulin, Blood 2.2 g/dL (2.2-4.0); Potassium, Blood 3.5 mmol/L (3.5-5.5); Total Protein, Blood 5.9 g/dL (6.4-8.2)
--- NOTE | 2023-01-14 05:32 | NUR ---
PT IS A&O4, INDEPENDENT WITH ADLS, RA, PARACENTESIS PLANNED FOR TODAY, NO COMPLAINTS OF PAIN OR DISCOMFORT OVERNIGHT, CONTINUE POC
--- NOTE | 2023-01-14 19:14 | NUR ---
PT ALERT NO S/S OF ACUTE DISTRESS, SAFETY MEASURES IN PLACE REPORT GIVEN TO ON COMING NURSE.
--- NOTE | 2023-01-15 04:44 | NUR ---
PATIENT ALERT AND ORIENTED, INDEPENDENT, 20 LFA W/ SANDOSTATIN 25CC/HR, PARACENTESIS DONE 01/14 W/ 4.5 LITERS REMOVED. NO EVETS OVERNIGHT
[2023-01-15 08:36] LABS: BASOPHILS ABSOLUTE AUTO 0.03 K/mm3 (0.00-0.23); BASOPHILS PERCENT AUTO 1 % (0-2); EOSINOPHILS PERCENT AUTO 5 % (0-6); Hematocrit 21.1 % (37.0-53.0); Hemoglobin 7.3 g/dL (13.5-17.5); IMMATURE GRAN ABSOLUTE AUTO 0.01 K/mm3 (0.00-0.10); IMMATURE GRAN PERCENT AUTO 0 % (0-1); LYMPHOCYTES ABSOLUTE AUTO 0.48 K/mm3 (0.84-5.20); LYMPHOCYTES PERCENT AUTO 12 % (21-46); MONOCYTES ABSOLUTE AUTO 0.48 K/mm3 (0.16-1.47); MONOCYTES PERCENT AUTO 12 % (4-13); Mean Corpuscular HGB 34.3 pg (26.0-34.0); Mean Corpuscular HGB Conc 34.6 g/dL (31.5-36.5); Mean Corpuscular Volume 99 fL (80-100); Mean Platelet Volume 10.4 fL (9.1-12.4); NEUTROPHILS PERCENT AUTO 71 % (41-73); Platelet Count 81 K/mm3 (150-400); RDW Coefficient Variation 17.9 % (11.7-14.2); RDW Standard Deviation 61.1 fL (35.1-46.3); Red Blood Cell Count 2.13 M/mm3 (4.30-5.90)
[2023-01-15 08:53] LABS: Albumin, Blood 3.9 g/dL (3.4-5.0); Anion Gap 7 mmol/L (6-16); Blood Urea Nitrogen 39 mg/dL (8-24); Bun/Creatinine Ratio 23.9 (12.0-20.0); CO2, Blood 19 mmol/L (21-32); Calcium, Blood 8.8 mg/dL (8.5-10.1); Chloride, Blood 115 mmol/L (98-108); Creatinine, Blood 1.63 mg/dL (0.60-1.20); Glomerular Filtration Rate 49 (60-); Glucose, Blood 98 mg/dL (70-99); Phosphorus, Blood 2.6 mg/dL (2.5-4.9); Potassium, Blood 3.5 mmol/L (3.5-5.5); Sodium, Blood 141 mmol/L (136-145)
--- NOTE | 2023-01-15 18:13 | NUR ---
SHIFT SUMMARY- PT A@O X4. PT B/P SOFTTHROUGHOUT SHIFT BUT ASYMPTOMATIC. PT REPORTED LOSSE STOOL, REF BOWEL CARE, SEE EMAR. EDEMA +2, BLE. NO C/O OF PAIN THIS SHIFT. WILL CONTINUE TO MONITOR. CALL LIGHT IN REACH.
--- NOTE | 2023-01-16 04:45 | NUR ---
PATIENT ALERT AND ORIENTED, ROOM AIR, NO TELE, 20 GAUGE DAVE FA, INDEPENDENT, BLE EDEMA 2+, PARACENTESIS DONE 01/14 NOW PRN, MONITORING HGB, NO EVENTS OVERNIGHT
[2023-01-16 05:14] LABS: BASOPHILS ABSOLUTE AUTO 0.03 K/mm3 (0.00-0.23); BASOPHILS PERCENT AUTO 1 % (0-2); EOSINOPHILS ABSOLUTE AUTO 0.23 K/mm3 (0.00-0.68); EOSINOPHILS PERCENT AUTO 6 % (0-6); Hemoglobin 7.1 g/dL (13.5-17.5); IMMATURE GRAN ABSOLUTE AUTO 0.01 K/mm3 (0.00-0.10); IMMATURE GRAN PERCENT AUTO 0 % (0-1); LYMPHOCYTES ABSOLUTE AUTO 0.55 K/mm3 (0.84-5.20); LYMPHOCYTES PERCENT AUTO 13 % (21-46); MONOCYTES ABSOLUTE AUTO 0.45 K/mm3 (0.16-1.47); MONOCYTES PERCENT AUTO 11 % (4-13); Mean Corpuscular HGB 33.6 pg (26.0-34.0); Mean Corpuscular HGB Conc 33.8 g/dL (31.5-36.5); Mean Corpuscular Volume 100 fL (80-100); Mean Platelet Volume 10.2 fL (9.1-12.4); NEUTROPHILS ABSOLUTE AUTO 2.84 K/mm3 (1.96-9.15); NEUTROPHILS PERCENT AUTO 69 % (41-73); Platelet Count 85 K/mm3 (150-400); RDW Coefficient Variation 18.2 % (11.7-14.2); RDW Standard Deviation 61.5 fL (35.1-46.3); Red Blood Cell Count 2.11 M/mm3 (4.30-5.90); White Blood Cell Count 4.11 K/mm3 (4.00-11.30)
[2023-01-16 05:45] LABS: Anion Gap 7 mmol/L (6-16); Blood Urea Nitrogen 38 mg/dL (8-24); Bun/Creatinine Ratio 22.9 (12.0-20.0); CO2, Blood 18 mmol/L (21-32); Calcium, Blood 9.2 mg/dL (8.5-10.1); Chloride, Blood 114 mmol/L (98-108); Creatinine, Blood 1.66 mg/dL (0.60-1.20); Glomerular Filtration Rate 47 (60-); Glucose, Blood 97 mg/dL (70-99); Phosphorus, Blood 2.9 mg/dL (2.5-4.9); Potassium, Blood 3.6 mmol/L (3.5-5.5); Sodium, Blood 139 mmol/L (136-145)
--- NOTE | 2023-01-16 18:06 | NUR ---
SHIFT SUMMARY PATIENT DENIES PAIN, NAUSEA, AND SHORTNESS OF BREATH. PATIENT IS IND IN ROOM. PATIENT HAS SANDOSTATIN DRIP RUNNING INTO LEFT FOREARM IV. PATIENT VISITED IN AFTERNOON. PATIENT AMBULATD IN HALLWAY A COUPLE TIMES DURING SHIFT. PATIENT EAGER TO GO HOME. THIS RN NOTICED PRESCRIPTION BOTTLES IN LOCKD DRAWER WITH PATIENT NAME ON THEM. CONFIRMED THEY WERE PATIENTS. ASKED PATIENT IF THEY COULD BE SENT HOME WITH , PATIENT AGREEABLE. THIS RN PUT THEM IN A BAG AND SENT THEM HOME WITH . PATIENT IS EATING AND DRINKING WELL. PATIENT IS PLEASANT AND COOPERATIVE WITH CARE.
[2023-01-17 04:50] LABS: BASOPHILS ABSOLUTE AUTO 0.02 K/mm3 (0.00-0.23); BASOPHILS PERCENT AUTO 0 % (0-2); EOSINOPHILS ABSOLUTE AUTO 0.33 K/mm3 (0.00-0.68); EOSINOPHILS PERCENT AUTO 6 % (0-6); Hematocrit 21.5 % (37.0-53.0); Hemoglobin 7.5 g/dL (13.5-17.5); IMMATURE GRAN ABSOLUTE AUTO 0.01 K/mm3 (0.00-0.10); IMMATURE GRAN PERCENT AUTO 0 % (0-1); LYMPHOCYTES ABSOLUTE AUTO 0.79 K/mm3 (0.84-5.20); LYMPHOCYTES PERCENT AUTO 15 % (21-46); MONOCYTES ABSOLUTE AUTO 0.63 K/mm3 (0.16-1.47); MONOCYTES PERCENT AUTO 12 % (4-13); Mean Corpuscular HGB 34.2 pg (26.0-34.0); Mean Corpuscular HGB Conc 34.9 g/dL (31.5-36.5); Mean Corpuscular Volume 98 fL (80-100); Mean Platelet Volume 9.6 fL (9.1-12.4); NEUTROPHILS ABSOLUTE AUTO 3.51 K/mm3 (1.96-9.15); NEUTROPHILS PERCENT AUTO 66 % (41-73); Platelet Count 102 K/mm3 (150-400); RDW Coefficient Variation 18.5 % (11.7-14.2); RDW Standard Deviation 64.6 fL (35.1-46.3); Red Blood Cell Count 2.19 M/mm3 (4.30-5.90); White Blood Cell Count 5.29 K/mm3 (4.00-11.30)
[2023-01-17 05:03] LABS: Albumin, Blood 4.3 g/dL (3.4-5.0); Anion Gap 5 mmol/L (6-16); Blood Urea Nitrogen 38 mg/dL (8-24); CO2, Blood 20 mmol/L (21-32); Calcium, Blood 8.8 mg/dL (8.5-10.1); Chloride, Blood 110 mmol/L (98-108); Creatinine, Blood 1.73 mg/dL (0.60-1.20); Glomerular Filtration Rate 45 (60-); Glucose, Blood 85 mg/dL (70-99); Phosphorus, Blood 2.8 mg/dL (2.5-4.9); Potassium, Blood 3.8 mmol/L (3.5-5.5); Sodium, Blood 135 mmol/L (136-145)
--- NOTE | 2023-01-17 06:15 | NUR ---
SWATCHER SUMMARY A/OX4. PLEASANT AND COOPERATIVE. PT REFUSING LACTULOSE. APROX 0500 THIS AM HEARD PT REPEATEDLY CLEARING THROAT. PT LUNG SOUNDS VERY CRACKLY; O2 SAT >90%, BREATHING UNLABORED. INTSTRUCTED PT TO USE URINAL F/I&O RECORD. EDUCATED PT TO CALL IF FEELING SOB. PT ABLE TO MAKE NEEDS KNOWN. CALL LIGHT ACCESSIBLE.
[2023-01-17] MEDS ORDERED: SODBIC650 PO (12:10)
[2023-01-17] MEDS ORDERED: Promod946 ML PO (12:10)
[2023-01-17] MEDS ORDERED: LACT10SY PO (12:11)
[2023-01-17] MEDS ORDERED: OMEP20ER PO (12:11)
--- NOTE | 2023-01-17 13:20 | NUR ---
PT DISCHARGED THE PT VERBALIZED UNDERSTANDING OF THE DC INSTRUCTIONS. PTS PRESCRIPTIONS FAXED TO [facility] HE REQUESTED. A FOLLOW UP APPOINTMENT WITH HIS PCP WAS MADE PRIOR TO DC. THE PT WAS TRANSFERED VIA WHEELCHAIR ACCOMPANIED BY THE [employer] SUPERVISOR
== END 2023-01-17 13:21 | disposition home health service (06) | DRG 441 ==
LOC: ER 16:11 → MEDS 16:12
PROVIDERS: Family Medicine; Internal Medicine; Physician Assistant; Student in an Organized Health Care Education/Training Program; ADMIT Internal Medicine
PROC: 0W9G3ZX Drainage of Peritoneal Cavity, Percutaneous Approach, Diagnostic (ICD-10-PCS; principal; 2023-01-06)
PROC: BW40ZZZ Ultrasonography of Abdomen (ICD-10-PCS; 2023-01-06)
PROC: 30233N1 Transfusion of Nonautologous Red Blood Cells into Peripheral Vein, Percutaneous Approach (ICD-10-PCS; 2023-01-11)
PROC: 0W9G3ZZ Drainage of Peritoneal Cavity, Percutaneous Approach (ICD-10-PCS; 2023-01-14)
PROC: 0W9G3ZZ Drainage of Peritoneal Cavity, Percutaneous Approach (ICD-10-PCS; 2023-01-17)
DX: K76.82 Hepatic encephalopathy (principal); K76.7 Hepatorenal syndrome; N17.9 Acute kidney failure, unspecified; E87.1 Hypo-osmolality and hyponatremia; K76.6 Portal hypertension; I85.10 Secondary esophageal varices without bleeding; J94.8 Other specified pleural conditions; E87.21 Acute metabolic acidosis; K70.31 Alcoholic cirrhosis of liver with ascites; R55 Syncope and collapse; E87.6 Hypokalemia; F10.21 Alcohol dependence, in remission; D64.9 Anemia, unspecified; D69.6 Thrombocytopenia, unspecified; K72.90 Hepatic failure, unspecified without coma; R16.1 Splenomegaly, not elsewhere classified; K21.9 Gastro-esophageal reflux disease without esophagitis; K44.9 Diaphragmatic hernia without obstruction or gangrene; K42.9 Umbilical hernia without obstruction or gangrene; K31.89 Other diseases of stomach and duodenum; K63.5 Polyp of colon; D18.09 Hemangioma of other sites; I27.20 Pulmonary hypertension, unspecified; K59.00 Constipation, unspecified; F12.11 Cannabis abuse, in remission; E86.0 Dehydration; Z79.899 Other long term (current) drug therapy; Z98.890 Other specified postprocedural states; Z87.891 Personal history of nicotine dependence; Z79.01 Long term (current) use of anticoagulants
CPT/HCPCS: 36415; 49083; 76705; 80053; 80069; 82040; 82042; 82140; 82272; 82945; 83605; 83615; 83735; 84157; 85007; 85014; 85018; 85025; 85027; 85610; 86850; 86900; 86901; 86923; 87070; 87205; 89051; 93306; 96372; 96374; 99285-25; A9270; C9113; G0378; J0696; J1644; J2354; J2405; J7030; J7050; P9016; P9046; P9047

== ENCOUNTER 2023-01-27 08:21 | Day surgery (SDC) | payer OTHER ==
[~2023-01-27 08:21] MED LIST changes: +DOCU100 PO; +LACT10SY PO; +Promod946 ML PO; +RIFA550T2 PO; +SODBIC650 PO
== END 2023-01-27 23:13 | disposition home or self-care (01) ==
LOC: US 08:21
DX: K70.31 Alcoholic cirrhosis of liver with ascites (principal)
CPT/HCPCS: 49083; P9047

== ENCOUNTER 2023-02-03 09:34 | Emergency (ER) | payer OTHER ==
[~2023-02-03] VITALS: Ht 172.7 cm; Wt 102.5 kg
[2023-02-03 10:49] LABS: BASOPHILS ABSOLUTE AUTO 0.05 K/mm3 (0.00-0.23); BASOPHILS PERCENT AUTO 1 % (0-2); EOSINOPHILS ABSOLUTE AUTO 0.44 K/mm3 (0.00-0.68); EOSINOPHILS PERCENT AUTO 8 % (0-6); Hematocrit 26.4 % (37.0-53.0); Hemoglobin 9.1 g/dL (13.5-17.5); IMMATURE GRAN ABSOLUTE AUTO 0.02 K/mm3 (0.00-0.10); IMMATURE GRAN PERCENT AUTO 0 % (0-1); LYMPHOCYTES ABSOLUTE AUTO 0.65 K/mm3 (0.84-5.20); LYMPHOCYTES PERCENT AUTO 12 % (21-46); MONOCYTES ABSOLUTE AUTO 0.63 K/mm3 (0.16-1.47); MONOCYTES PERCENT AUTO 12 % (4-13); Mean Corpuscular HGB 34.5 pg (26.0-34.0); Mean Corpuscular HGB Conc 34.5 g/dL (31.5-36.5); Mean Corpuscular Volume 100 fL (80-100); Mean Platelet Volume 9.5 fL (9.1-12.4); NEUTROPHILS ABSOLUTE AUTO 3.55 K/mm3 (1.96-9.15); NEUTROPHILS PERCENT AUTO 67 % (41-73); Platelet Count 163 K/mm3 (150-400); RDW Coefficient Variation 19.2 % (11.7-14.2); RDW Standard Deviation 69.7 fL (35.1-46.3); Red Blood Cell Count 2.64 M/mm3 (4.30-5.90); White Blood Cell Count 5.34 K/mm3 (4.00-11.30)
[2023-02-03 11:08] LABS: Albumin, Blood 3.5 g/dL (3.4-5.0); Bilirubin, Total 2.5 mg/dL (0.1-1.0); Bun/Creatinine Ratio 18.5 (12.0-20.0); Calcium, Blood 8.8 mg/dL (8.5-10.1); Creatinine, Blood 2.54 mg/dL (0.60-1.20); Globulin, Blood 3.5 g/dL (2.2-4.0); Potassium, Blood 3.8 mmol/L (3.5-5.5)
[2023-02-03 11:51] LABS: International Normalized Ratio 1.76; Prothrombin Time Results 17.8 Sec (9.7-11.5)
== END 2023-02-03 17:15 | disposition home or self-care (01) ==
LOC: ER 09:34
PROVIDERS: Emergency Medicine
DX: R18.8 Other ascites (principal); F17.220 Nicotine dependence, chewing tobacco, uncomplicated; Z79.899 Other long term (current) drug therapy
CPT/HCPCS: 36415; 49082; 74019; 80053; 83690; 85025; 85610; 85730; 99284-25

== ENCOUNTER 2023-02-10 08:40 | Day surgery (SDC) | payer OTHER | END 2023-02-10 23:06 | disposition home or self-care (01) | LOC: US 08:40 | DX: K70.31 Alcoholic cirrhosis of liver with ascites (principal) | CPT/HCPCS: 49083; 96365; P9047 ==

== ENCOUNTER 2023-02-17 09:28 | Day surgery (SDC) | payer OTHER | END 2023-02-17 22:57 | disposition home or self-care (01) | LOC: US 09:28 | DX: K70.31 Alcoholic cirrhosis of liver with ascites (principal) | CPT/HCPCS: 49083; 96365; 96366; P9047 ==

== ENCOUNTER 2023-02-20 09:56 | Emergency (ER) | payer OTHER ==
[~2023-02-20] VITALS: Ht 172.7 cm; Wt 98.4 kg
[2023-02-20 10:49] LABS: BASOPHILS ABSOLUTE AUTO 0.03 K/mm3 (0.00-0.23); BASOPHILS PERCENT AUTO 0 % (0-2); EOSINOPHILS ABSOLUTE AUTO 0.69 K/mm3 (0.00-0.68); EOSINOPHILS PERCENT AUTO 10 % (0-6); Hemoglobin 8.7 g/dL (13.5-17.5); IMMATURE GRAN ABSOLUTE AUTO 0.03 K/mm3 (0.00-0.10); IMMATURE GRAN PERCENT AUTO 0 % (0-1); LYMPHOCYTES ABSOLUTE AUTO 0.73 K/mm3 (0.84-5.20); LYMPHOCYTES PERCENT AUTO 10 % (21-46); MONOCYTES PERCENT AUTO 10 % (4-13); Mean Corpuscular HGB 35.4 pg (26.0-34.0); Mean Corpuscular HGB Conc 36.3 g/dL (31.5-36.5); Mean Corpuscular Volume 98 fL (80-100); Mean Platelet Volume 9.4 fL (9.1-12.4); NEUTROPHILS ABSOLUTE AUTO 5.07 K/mm3 (1.96-9.15); NEUTROPHILS PERCENT AUTO 70 % (41-73); Platelet Count 136 K/mm3 (150-400); RDW Coefficient Variation 16.5 % (11.7-14.2); Red Blood Cell Count 2.46 M/mm3 (4.30-5.90); White Blood Cell Count 7.25 K/mm3 (4.00-11.30)
[2023-02-20 10:58] LABS: Albumin, Blood 3.4 g/dL (3.4-5.0); Bilirubin, Total 3.5 mg/dL (0.1-1.0); Bun/Creatinine Ratio 29.3 (12.0-20.0); Calcium, Blood 8.7 mg/dL (8.5-10.1); Creatinine, Blood 2.32 mg/dL (0.60-1.20); Globulin, Blood 3.4 g/dL (2.2-4.0); Potassium, Blood 4.6 mmol/L (3.5-5.5); Total Protein, Blood 6.8 g/dL (6.4-8.2)
== END 2023-02-20 12:57 | disposition home or self-care (01) ==
LOC: ER 09:56
PROVIDERS: Physician Assistant
DX: K70.31 Alcoholic cirrhosis of liver with ascites (principal); E87.70 Fluid overload, unspecified; N18.9 Chronic kidney disease, unspecified; E87.1 Hypo-osmolality and hyponatremia; E80.6 Other disorders of bilirubin metabolism; D64.9 Anemia, unspecified; E72.20 Disorder of urea cycle metabolism, unspecified; F17.220 Nicotine dependence, chewing tobacco, uncomplicated; Z79.899 Other long term (current) drug therapy
CPT/HCPCS: 36415; 51798; 80053; 82140; 85025

== ENCOUNTER 2023-02-24 08:23 | Day surgery (SDC) | payer OTHER | END 2023-02-24 11:01 | disposition home or self-care (01) | LOC: US 08:23 → ATC 08:23 → US 09:00 → ATC 11:01 → US 03-31 09:00 | DX: K70.31 Alcoholic cirrhosis of liver with ascites (principal) | CPT/HCPCS: 49083; 96365; P9047 ==

== ENCOUNTER 2023-03-03 08:31 | Day surgery (SDC) | payer OTHER | END 2023-03-03 22:47 | disposition home or self-care (01) | LOC: US 08:31 | DX: K70.31 Alcoholic cirrhosis of liver with ascites (principal) | CPT/HCPCS: 76705 ==

== ENCOUNTER → 2023-03-06 | Outpatient (CLI) | payer OTHER ==
[2023-03-06 11:43] LABS: Microalbumin, Urine Quant. 8.13 mg/L (0.000-20.000); Protein, Urine Quantitative 11.7 mg/dL (0.0-11.9)
== END | disposition home or self-care (01) ==
LOC: LAB SHORT 08:00
PROVIDERS: Internal Medicine Nephrology
DX: N18.30 Chronic kidney disease, stage 3 unspecified (principal); D63.1 Anemia in chronic kidney disease; N25.81 Secondary hyperparathyroidism of renal origin; E55.9 Vitamin D deficiency, unspecified; E29.1 Testicular hypofunction; N40.1 Benign prostatic hyperplasia with lower urinary tract symptoms; D51.8 Other vitamin B12 deficiency anemias; D52.8 Other folate deficiency anemias; D50.9 Iron deficiency anemia, unspecified; R76.9 Abnormal immunological finding in serum, unspecified; R94.5 Abnormal results of liver function studies
CPT/HCPCS: 81050; 82043; 82570; 84156

== ENCOUNTER 2023-03-10 08:36 | Day surgery (SDC) | payer OTHER ==
[2023-03-14] MEDS ORDERED: VITAMIN D31000 UNI1 PO (11:58)
[2023-03-14] MEDS ORDERED: MULVITA PO (11:59)
[2023-03-14] MEDS ORDERED: Vitamin D1000 UNI1 PO (11:59)
== END 2023-03-10 22:59 | disposition home or self-care (01) ==
LOC: US 08:36
DX: K70.31 Alcoholic cirrhosis of liver with ascites (principal)
CPT/HCPCS: 49083

== ENCOUNTER 2023-03-17 08:05 | Inpatient (IN) | payer OTHER ==
[~2023-03-17] VITALS: Ht 177.8 cm; Wt 99.6 kg
[~2023-03-17 08:05] MED LIST changes: +MULVITA PO; +VITAMIN D31000 UNI1 PO; +Vitamin D1000 UNI1 PO
[2023-03-17 08:52] LABS: BASOPHILS ABSOLUTE AUTO 0.03 K/mm3 (0.00-0.23); BASOPHILS PERCENT AUTO 1 % (0-2); EOSINOPHILS ABSOLUTE AUTO 0.23 K/mm3 (0.00-0.68); EOSINOPHILS PERCENT AUTO 4 % (0-6); Hematocrit 26.4 % (37.0-53.0); Hemoglobin 9.3 g/dL (13.5-17.5); IMMATURE GRAN ABSOLUTE AUTO 0.02 K/mm3 (0.00-0.10); IMMATURE GRAN PERCENT AUTO 0 % (0-1); LYMPHOCYTES ABSOLUTE AUTO 0.57 K/mm3 (0.84-5.20); LYMPHOCYTES PERCENT AUTO 9 % (21-46); MONOCYTES ABSOLUTE AUTO 0.61 K/mm3 (0.16-1.47); MONOCYTES PERCENT AUTO 9 % (4-13); Mean Corpuscular HGB 35.6 pg (26.0-34.0); Mean Corpuscular HGB Conc 35.2 g/dL (31.5-36.5); Mean Corpuscular Volume 101 fL (80-100); Mean Platelet Volume 9.4 fL (9.1-12.4); NEUTROPHILS ABSOLUTE AUTO 5.19 K/mm3 (1.96-9.15); NEUTROPHILS PERCENT AUTO 78 % (41-73); Platelet Count 175 K/mm3 (150-400); RDW Standard Deviation 58.9 fL (35.1-46.3); Red Blood Cell Count 2.61 M/mm3 (4.30-5.90); White Blood Cell Count 6.65 K/mm3 (4.00-11.30)
[2023-03-17 09:05] LABS: Albumin, Blood 3.1 g/dL (3.4-5.0); Albumin/Globulin Ratio 0.8 (0.8-1.8); Bilirubin, Direct 0.6 mg/dL (0.0-0.3); Bilirubin, Indirect 1.3 mg/dL (0.1-0.7); Bilirubin, Total 1.9 mg/dL (0.1-1.0); Bun/Creatinine Ratio 21.1 (12.0-20.0); Calcium, Blood 8.5 mg/dL (8.5-10.1); Creatinine, Blood 2.09 mg/dL (0.60-1.20); Globulin, Blood 3.9 g/dL (2.2-4.0); Magnesium, Blood 2.2 mg/dL (1.6-2.4)
[2023-03-17 10:40] LABS: Source, Urine Clean Catch
[2023-03-17 10:46] LABS: Appearance, Urine Clear (Clear); Bilirubin, Urine Neg (Neg); Blood, Urine 1+ (Neg); Color, Urine Yellow (P-Yellow); Glucose Qualitative, Urine Neg (Neg); Ketones, Urine Neg (Neg); Leukocyte Esterase, Urine Neg (Neg); Nitrite, Urine Neg (Neg); Protein, Urine Neg (Neg); Urobilinogen, Urine NORM (Normal)
[2023-03-17 10:52] LABS: White Blood Cells, Urine Not Seen /hpf (0-5)
[2023-03-17 10:53] LABS: Bacteria Not Seen /hpf; Red Blood Cells, Urine 0-2 /hpf (0-2); Squamous Epithelial Cells Rare /hpf (Few)
[2023-03-17 14:03] VITALS: BP 101/74
[2023-03-17 14:37] LABS: Bun/Creatinine Ratio 22.1 (12.0-20.0); Calcium, Blood 8.7 mg/dL (8.5-10.1); Creatinine, Blood 1.95 mg/dL (0.60-1.20); Potassium, Blood 4.7 mmol/L (3.5-5.5)
[2023-03-17 19:36] VITALS: BP 117/75
--- NOTE | 2023-03-18 04:25 | NUR ---
MIMI BOWEN, PT RESTING IN BED. PT UP TO BSC TO VOID AND HAVE BMS. PT HAS LACTALOSE ENEMMAS. PT ALERT AND ORIENTED TO PERSON AND PLACE. PT FORGETS TO USE CALL LIGHT BUT SETS OFF ALARM AND THEN SITS AT EDGE OF BED TILL HELP COMES. BED ALARM STERILIZATION TECH LIGHT IN REACH.
[2023-03-18 04:52] LABS: Base Excess Venous -9.5 mmol/L; Bicarbonate Venous 17.5 mmol/L (24.0-30.0); PCO2 Venous 28.3 mmHg (38-42); pH Blood Venous 7.36 (7.34-7.37)
[2023-03-18 04:53] LABS: BASOPHILS ABSOLUTE AUTO 0.02 K/mm3 (0.00-0.23); BASOPHILS PERCENT AUTO 0 % (0-2); EOSINOPHILS ABSOLUTE AUTO 0.28 K/mm3 (0.00-0.68); EOSINOPHILS PERCENT AUTO 5 % (0-6); Hematocrit 22.8 % (37.0-53.0); Hemoglobin 8.1 g/dL (13.5-17.5); IMMATURE GRAN ABSOLUTE AUTO 0.01 K/mm3 (0.00-0.10); IMMATURE GRAN PERCENT AUTO 0 % (0-1); LYMPHOCYTES PERCENT AUTO 10 % (21-46); MONOCYTES ABSOLUTE AUTO 0.59 K/mm3 (0.16-1.47); MONOCYTES PERCENT AUTO 10 % (4-13); Mean Corpuscular HGB 36.2 pg (26.0-34.0); Mean Corpuscular HGB Conc 35.5 g/dL (31.5-36.5); Mean Corpuscular Volume 102 fL (80-100); Mean Platelet Volume 9.1 fL (9.1-12.4); NEUTROPHILS ABSOLUTE AUTO 4.38 K/mm3 (1.96-9.15); NEUTROPHILS PERCENT AUTO 75 % (41-73); Platelet Count 134 K/mm3 (150-400); RDW Coefficient Variation 16.2 % (11.7-14.2); RDW Standard Deviation 59.6 fL (35.1-46.3); Red Blood Cell Count 2.24 M/mm3 (4.30-5.90); White Blood Cell Count 5.88 K/mm3 (4.00-11.30)
[2023-03-18 05:13] VITALS: BP 108/70
[2023-03-18 05:56] LABS: Albumin, Blood 2.6 g/dL (3.4-5.0); Albumin/Globulin Ratio 0.7 (0.8-1.8); Bilirubin, Total 3.2 mg/dL (0.1-1.0); Bun/Creatinine Ratio 20.6 (12.0-20.0); Calcium, Blood 8.6 mg/dL (8.5-10.1); Creatinine, Blood 2.14 mg/dL (0.60-1.20); Globulin, Blood 3.6 g/dL (2.2-4.0); Magnesium, Blood 2.2 mg/dL (1.6-2.4); Potassium, Blood 3.4 mmol/L (3.5-5.5); Total Protein, Blood 6.2 g/dL (6.4-8.2)
--- NOTE | 2023-03-18 06:22 | NUR ---
Pt stated he is very hungery and is feeling much better today than he was feeling yesterday. pt dening N/V.
[2023-03-18 07:30] VITALS: BP 119/68
[2023-03-18 15:08] VITALS: BP 115/65
--- NOTE | 2023-03-18 17:02 | NUR ---
RECIEVED CARE OF PT FROM KIRILL BOTELLO AROUND 1600. PT IS A/X3, PLEASANT AND COOPERATIVE. THE PT IS UP IND IN HIS ROOM AND AMBULATES OUT INTO THE FELDMAN AT TIMES. PT APPEARS TO BE BREATHING EASILY ON RA AT THIS TIME. PT DENIES PAIN,N/V AND SOB AT THIS TIME CALL LIGHT IN REACH. WILL CONTINUE TO MONITOR AN D ASSESS FOR CHANGES
[2023-03-18 19:09] VITALS: BP 123/75
--- NOTE | 2023-03-19 03:37 | NUR ---
SHIFT SUMMARY NOC PT A/O X 3-4. PLEASANT AND COOPERATIVE WITH CARE. PT ON PO LACTULOSE NOW. PT AMBULATED IND IN HALLWAY A COUPLE TIMES. PT DENIES CP/SOB. NO ACUTE CHANGES TO REPORT. PT IS CURRENTLY RESTING WITH BED IN LOWEST POSITION, AND CALL LIGHT WITHIN REACH.
[2023-03-19 04:18] VITALS: BP 114/72
[2023-03-19 04:42] LABS: Bun/Creatinine Ratio 19.7 (12.0-20.0); Calcium, Blood 8.4 mg/dL (8.5-10.1); Creatinine, Blood 2.18 mg/dL (0.60-1.20); Potassium, Blood 3.3 mmol/L (3.5-5.5)
[2023-03-19 07:29] VITALS: BP 114/67
[2023-03-19] MEDS ORDERED: SPIR25 PO (11:17)
--- NOTE | 2023-03-19 12:25 | NUR ---
Shift Summary: A&O X 4, MAKES NEEDS KNOWN. TAKES ALL MEDICATIONS ORDERED. GOOD STRENGTH AND MOBILITY IN ROOM. PERFORMS ADL'S WILL CALL FOR ASSISTANCE. GOOD APPETITE NO CONSTIPATION. GOOD PO INTAKE OF FLUIDS. NO PAIN INDICATED DOES REPORT DISCOMFORT WHEN WALKING LONG DISTANCES. DISCHARGING HOME TODAY, PICKED UP BY ROOM MATE. INSTRUCTIONS ON MEDICATIONS BY DISCHARGE NURSE. ROOM MATE TO ASSIST WITH PROVIDING MEDICATIONS.
== END 2023-03-19 12:17 | disposition home or self-care (01) | DRG 441 ==
LOC: ER 08:05 → MEDS 12:00 → ENPENDDIS 03-19 11:01 → MEDS 03-19 12:17
PROVIDERS: Physician Assistant; ADMIT Internal Medicine
DX: K76.82 Hepatic encephalopathy (principal); G92.8 Other toxic encephalopathy; E87.22 Chronic metabolic acidosis; F10.20 Alcohol dependence, uncomplicated; K72.10 Chronic hepatic failure without coma; E87.6 Hypokalemia; N18.32 Chronic kidney disease, stage 3b; D63.1 Anemia in chronic kidney disease; K70.31 Alcoholic cirrhosis of liver with ascites; F17.220 Nicotine dependence, chewing tobacco, uncomplicated; N40.0 Benign prostatic hyperplasia without lower urinary tract symptoms; Z79.899 Other long term (current) drug therapy; Z98.890 Other specified postprocedural states
CPT/HCPCS: 36415; 51701; 80048; 80053; 81001; 82140; 82248; 82803; 83735; 85025; 93005; 93010; 99285-25; A9270; J0780; J7030

== ENCOUNTER → 2023-03-23 | Outpatient (CLI) | payer OTHER ==
[~2023-03-23] MED LIST changes: +SPIR25 PO
[2023-03-23 12:46] LABS: Protein, Urine Quantitative 8.9 mg/dL (0.0-11.9)
[2023-03-23 12:51] LABS: Microalbumin, Urine Quant. <5.000 mg/L (0.000-20.000)
== END | disposition home or self-care (01) ==
LOC: LAB SHORT 07:00 → LAB 07:00
PROVIDERS: Internal Medicine Nephrology
DX: N18.30 Chronic kidney disease, stage 3 unspecified (principal); R80.9 Proteinuria, unspecified
CPT/HCPCS: 81050; 82043; 82570; 84156

== ENCOUNTER 2023-03-24 08:06 | Day surgery (SDC) | payer OTHER ==
[2023-03-24 11:30] VITALS: BP 105/59
--- NOTE | 2023-03-24 11:39 | NUR ---
PT DISCHARGE IV PLACED POST PARA. 50 GM OF ALUBMING GIVEN PER EMAR. PT TOLERATED WELL. IV REMOVED, VSS. PT TO LOBBY AT 1135.
== END 2023-03-24 22:40 | disposition home or self-care (01) ==
LOC: US 08:06
DX: K70.31 Alcoholic cirrhosis of liver with ascites (principal)
CPT/HCPCS: 49083; 96365; P9047

== ENCOUNTER 2023-03-29 15:23 | Emergency (ER) | payer OTHER ==
[~2023-03-29] VITALS: Ht 172.7 cm; Wt 90.7 kg
[2023-03-29 15:37] VITALS: BP 106/65
[2023-03-29 16:05] LABS: BASOPHILS ABSOLUTE AUTO 0.02 K/mm3 (0.00-0.23); BASOPHILS PERCENT AUTO 0 % (0-2); EOSINOPHILS ABSOLUTE AUTO 0.14 K/mm3 (0.00-0.68); EOSINOPHILS PERCENT AUTO 3 % (0-6); Hematocrit 24.2 % (37.0-53.0); Hemoglobin 8.4 g/dL (13.5-17.5); IMMATURE GRAN ABSOLUTE AUTO 0.01 K/mm3 (0.00-0.10); IMMATURE GRAN PERCENT AUTO 0 % (0-1); LYMPHOCYTES ABSOLUTE AUTO 0.51 K/mm3 (0.84-5.20); LYMPHOCYTES PERCENT AUTO 10 % (21-46); MONOCYTES ABSOLUTE AUTO 0.48 K/mm3 (0.16-1.47); MONOCYTES PERCENT AUTO 10 % (4-13); Mean Corpuscular HGB 35.3 pg (26.0-34.0); Mean Corpuscular HGB Conc 34.7 g/dL (31.5-36.5); Mean Corpuscular Volume 102 fL (80-100); NEUTROPHILS ABSOLUTE AUTO 3.75 K/mm3 (1.96-9.15); NEUTROPHILS PERCENT AUTO 76 % (41-73); Platelet Count 119 K/mm3 (150-400); RDW Coefficient Variation 15.2 % (11.7-14.2); RDW Standard Deviation 55.8 fL (35.1-46.3); Red Blood Cell Count 2.38 M/mm3 (4.30-5.90); White Blood Cell Count 4.91 K/mm3 (4.00-11.30)
[2023-03-29 16:24] LABS: Albumin, Blood 2.9 g/dL (3.4-5.0); Albumin/Globulin Ratio 0.8 (0.8-1.8); Bilirubin, Total 2.6 mg/dL (0.1-1.0); Bun/Creatinine Ratio 16.2 (12.0-20.0); Creatinine, Blood 2.84 mg/dL (0.60-1.20); Globulin, Blood 3.8 g/dL (2.2-4.0); Potassium, Blood 3.5 mmol/L (3.5-5.5); Total Protein, Blood 6.7 g/dL (6.4-8.2)
== END 2023-03-29 17:39 | disposition home or self-care (01) ==
LOC: ER 15:23
PROVIDERS: Physician Assistant
DX: E72.20 Disorder of urea cycle metabolism, unspecified (principal); Z79.899 Other long term (current) drug therapy; F17.220 Nicotine dependence, chewing tobacco, uncomplicated
CPT/HCPCS: 80053; 82140; 83690; 85025; 93005; 93010

== ENCOUNTER 2023-03-31 08:09 | Day surgery (SDC) | payer OTHER | END 2023-03-31 22:59 | disposition home or self-care (01) | LOC: US 08:09 | DX: K70.31 Alcoholic cirrhosis of liver with ascites (principal) | CPT/HCPCS: 49083 ==

== ENCOUNTER 2023-03-31 15:59 | Emergency (ER) | payer OTHER ==
[~2023-03-31] VITALS: Ht 172.7 cm; Wt 90.7 kg
[2023-03-31 17:03] LABS: BASOPHILS ABSOLUTE AUTO 0.01 K/mm3 (0.00-0.23); BASOPHILS PERCENT AUTO 0 % (0-2); EOSINOPHILS ABSOLUTE AUTO 0.08 K/mm3 (0.00-0.68); EOSINOPHILS PERCENT AUTO 2 % (0-6); Hematocrit 24.1 % (37.0-53.0); Hemoglobin 8.4 g/dL (13.5-17.5); IMMATURE GRAN ABSOLUTE AUTO 0.02 K/mm3 (0.00-0.10); IMMATURE GRAN PERCENT AUTO 1 % (0-1); LYMPHOCYTES ABSOLUTE AUTO 0.35 K/mm3 (0.84-5.20); LYMPHOCYTES PERCENT AUTO 8 % (21-46); MONOCYTES ABSOLUTE AUTO 0.29 K/mm3 (0.16-1.47); MONOCYTES PERCENT AUTO 7 % (4-13); Mean Corpuscular HGB 35.4 pg (26.0-34.0); Mean Corpuscular HGB Conc 34.9 g/dL (31.5-36.5); Mean Corpuscular Volume 102 fL (80-100); Mean Platelet Volume 9.9 fL (9.1-12.4); NEUTROPHILS PERCENT AUTO 82 % (41-73); Platelet Count 100 K/mm3 (150-400); RDW Coefficient Variation 15.2 % (11.7-14.2); RDW Standard Deviation 56.3 fL (35.1-46.3); Red Blood Cell Count 2.37 M/mm3 (4.30-5.90); White Blood Cell Count 4.25 K/mm3 (4.00-11.30)
[2023-03-31 17:54] LABS: Albumin/Globulin Ratio 0.8 (0.8-1.8); Bilirubin, Total 2.8 mg/dL (0.1-1.0); Bun/Creatinine Ratio 19.1 (12.0-20.0); Creatinine, Blood 2.67 mg/dL (0.60-1.20); Globulin, Blood 3.9 g/dL (2.2-4.0); Potassium, Blood 3.5 mmol/L (3.5-5.5); Total Protein, Blood 6.9 g/dL (6.4-8.2)
[2023-03-31 21:00] VITALS: BP 104/60
== END 2023-03-31 21:29 | disposition home or self-care (01) ==
LOC: ER 15:59
PROVIDERS: Physician Assistant
DX: R10.33 Periumbilical pain (principal); Z79.899 Other long term (current) drug therapy; F17.220 Nicotine dependence, chewing tobacco, uncomplicated
CPT/HCPCS: 74177; 80053; 85025; 99284-25; A9270; Q9967

== ENCOUNTER 2023-04-03 09:12 | Observation (INO) | payer OTHER ==
[~2023-04-03] VITALS: Ht 177.8 cm; Wt 91.3 kg
[2023-04-03 09:41] LABS: BASOPHILS ABSOLUTE AUTO 0.01 K/mm3 (0.00-0.23); BASOPHILS PERCENT AUTO 0 % (0-2); EOSINOPHILS ABSOLUTE AUTO 0.15 K/mm3 (0.00-0.68); EOSINOPHILS PERCENT AUTO 3 % (0-6); Hematocrit 24.9 % (37.0-53.0); Hemoglobin 8.7 g/dL (13.5-17.5); IMMATURE GRAN ABSOLUTE AUTO 0.01 K/mm3 (0.00-0.10); IMMATURE GRAN PERCENT AUTO 0 % (0-1); LYMPHOCYTES ABSOLUTE AUTO 0.58 K/mm3 (0.84-5.20); LYMPHOCYTES PERCENT AUTO 13 % (21-46); MONOCYTES ABSOLUTE AUTO 0.48 K/mm3 (0.16-1.47); MONOCYTES PERCENT AUTO 11 % (4-13); Mean Corpuscular HGB 35.4 pg (26.0-34.0); Mean Corpuscular HGB Conc 34.9 g/dL (31.5-36.5); Mean Corpuscular Volume 101 fL (80-100); Mean Platelet Volume 9.8 fL (9.1-12.4); NEUTROPHILS ABSOLUTE AUTO 3.22 K/mm3 (1.96-9.15); NEUTROPHILS PERCENT AUTO 72 % (41-73); Platelet Count 84 K/mm3 (150-400); RDW Coefficient Variation 14.7 % (11.7-14.2); RDW Standard Deviation 53.8 fL (35.1-46.3); Red Blood Cell Count 2.46 M/mm3 (4.30-5.90); White Blood Cell Count 4.45 K/mm3 (4.00-11.30)
[2023-04-03 09:57] LABS: Albumin, Blood 2.7 g/dL (3.4-5.0); Albumin/Globulin Ratio 0.8 (0.8-1.8); Bilirubin, Total 1.5 mg/dL (0.1-1.0); Bun/Creatinine Ratio 18.1 (12.0-20.0); Calcium, Blood 8.4 mg/dL (8.5-10.1); Creatinine, Blood 2.37 mg/dL (0.60-1.20); Globulin, Blood 3.5 g/dL (2.2-4.0); Potassium, Blood 4.3 mmol/L (3.5-5.5); Total Protein, Blood 6.2 g/dL (6.4-8.2)
[2023-04-03 11:14] LABS: International Normalized Ratio 1.6; Prothrombin Time Results 16.4 Sec (9.7-11.5)
[2023-04-03 13:04] VITALS: BP 113/63
[2023-04-03] MEDS ORDERED: TAMS.4ER PO (13:23)
[2023-04-03] MEDS ORDERED: VITAMIN D325 MC3 PO (13:25)
[2023-04-03] MEDS ORDERED: OMEP20ER PO ×2 (13:29→13:38)
[2023-04-03] MEDS ORDERED: RIFA550T2 PO (13:29)
[2023-04-03] MEDS ORDERED: SPIR25 PO (13:32)
[2023-04-03] MEDS ORDERED: SODBIC650 PO (13:32)
[2023-04-03] MEDS ORDERED: POTA10T PO (13:32)
[2023-04-03] MEDS ORDERED: CENTRUM SILVER1 EAC2 PO (13:33)
[2023-04-03] MEDS ORDERED: LACT10SY PO (13:35)
[2023-04-03] MEDS ORDERED: MIRALAX17 GM PO (13:35)
[2023-04-03] MEDS ORDERED: METAMUCIL POWD798 GM PO (13:37)
--- NOTE | 2023-04-03 19:25 | NUR ---
SHIFT SUMMARY: PT A/O TO SELF STANDBY ASSIST AT SHIFT END. PT IMPULSIVE. PT PULLED OUT HIS IV ON ACCIDENT. PT GIVEN LACTULOSE ENEMA AT 1830 WITH NO BM RESULTS. REQUESTED PT TO GO TO SCU.
[2023-04-03 19:39] VITALS: BP 111/68
--- NOTE | 2023-04-03 23:44 | NUR ---
SWITCH LACTULOSE ENEMA TO PO PT IS AWAKE, WALKING AND TALKING AFTER LACTULOSE ENEMAS TODAY. PER H&P PLAN IS TO SWITCH FROM ENEMA TO PO WHEN SAFE TO DO SO. CALLED HOSPITALIST DR BARLOW WHO ORDERED TO D/C THE ENEMA AND GIVE 30G LACTULOSE Q6 PO, FIRST DOSE AT 0600 ON 04/04. ORDERS ARE UPDATED.
[2023-04-04 02:29] VITALS: BP 125/66
--- NOTE | 2023-04-04 06:41 | NUR ---
Shift Summary Pt improved mentation and ambulation, called hospitalist to change lactulose from enema to PO, see nursing note. Pt had frequent loose BMs, at least 6, throught the night and one this AM. He is now AOx3-4 with some mild confusion, able to use the BR with 1 SBA. VSS, pleasant and cooperative. Pt did not sleep.
[2023-04-04 07:04] LABS: Bun/Creatinine Ratio 16.5 (12.0-20.0); Creatinine, Blood 2.49 mg/dL (0.60-1.20); Potassium, Blood 3.8 mmol/L (3.5-5.5)
[2023-04-04 08:13] VITALS: BP 107/63
--- NOTE | 2023-04-04 11:56 | NUR ---
PT D/C PRIOR TO ORDER ENEMA EDUCATION, ATTEMPTED TO CALL X2, N/A. NO VM NOTED, WILL ATTEMPT TO CONTACT AGAIN.
== END 2023-04-04 10:00 | disposition home or self-care (01) ==
LOC: ER 09:12 → MEDS 09:13 → ENPENDDIS 04-04 08:08 → MEDS 04-04 10:00
PROVIDERS: Emergency Medicine; Physician Assistant; ADMIT Internal Medicine
DX: K76.82 Hepatic encephalopathy (principal); K70.31 Alcoholic cirrhosis of liver with ascites; E87.1 Hypo-osmolality and hyponatremia; N18.4 Chronic kidney disease, stage 4 (severe); D69.6 Thrombocytopenia, unspecified; D63.8 Anemia in other chronic diseases classified elsewhere; Z87.891 Personal history of nicotine dependence
CPT/HCPCS: 36415; 80048; 80053; 82140; 83735; 85025; 85610; 93005; 93010; 96372; 96374; 99285-25; A9270; G0378; J1644; J2405

== ENCOUNTER 2023-04-07 08:18 | Day surgery (SDC) | payer OTHER ==
[~2023-04-07 08:18] MED LIST changes: +CENTRUM SILVER1 EAC2 PO; +METAMUCIL POWD798 GM PO; +MIRALAX17 GM PO; +VITAMIN D325 MC3 PO
== END 2023-04-08 22:41 | disposition home or self-care (01) ==
LOC: US 08:18
DX: K70.31 Alcoholic cirrhosis of liver with ascites (principal)
CPT/HCPCS: 49083

== ENCOUNTER 2023-04-07 10:03 | Inpatient (IN) | payer OTHER ==
[~2023-04-07] VITALS: Ht 172.7 cm; Wt 99.8 kg
[2023-04-07 11:27] LABS: BASOPHILS ABSOLUTE AUTO 0.01 K/mm3 (0.00-0.23); BASOPHILS PERCENT AUTO 0 % (0-2); EOSINOPHILS ABSOLUTE AUTO 0.12 K/mm3 (0.00-0.68); EOSINOPHILS PERCENT AUTO 4 % (0-6); Hematocrit 25.6 % (37.0-53.0); Hemoglobin 8.8 g/dL (13.5-17.5); IMMATURE GRAN ABSOLUTE AUTO 0.01 K/mm3 (0.00-0.10); IMMATURE GRAN PERCENT AUTO 0 % (0-1); LYMPHOCYTES ABSOLUTE AUTO 0.46 K/mm3 (0.84-5.20); LYMPHOCYTES PERCENT AUTO 15 % (21-46); MONOCYTES ABSOLUTE AUTO 0.31 K/mm3 (0.16-1.47); MONOCYTES PERCENT AUTO 10 % (4-13); Mean Corpuscular HGB 35.3 pg (26.0-34.0); Mean Corpuscular HGB Conc 34.4 g/dL (31.5-36.5); Mean Corpuscular Volume 103 fL (80-100); Mean Platelet Volume 10.4 fL (9.1-12.4); NEUTROPHILS ABSOLUTE AUTO 2.25 K/mm3 (1.96-9.15); NEUTROPHILS PERCENT AUTO 71 % (41-73); Platelet Count 62 K/mm3 (150-400); RDW Coefficient Variation 15.4 % (11.7-14.2); RDW Standard Deviation 57.7 fL (35.1-46.3); Red Blood Cell Count 2.49 M/mm3 (4.30-5.90); White Blood Cell Count 3.16 K/mm3 (4.00-11.30)
[2023-04-07 11:51] LABS: Albumin, Blood 2.4 g/dL (3.4-5.0); Albumin/Globulin Ratio 0.7 (0.8-1.8); Bilirubin, Total 2.8 mg/dL (0.1-1.0); Bun/Creatinine Ratio 15.5 (12.0-20.0); Creatinine, Blood 2.96 mg/dL (0.60-1.20); Globulin, Blood 3.3 g/dL (2.2-4.0); Potassium, Blood 5.1 mmol/L (3.5-5.5); Total Protein, Blood 5.7 g/dL (6.4-8.2)
[2023-04-07 17:21] VITALS: BP 103/53
--- NOTE | 2023-04-07 18:27 | NUR ---
PT A&O, ANSWERS QUESTIONS APPROPRIATELY. PT ARRIVED TO THE MEDICAL FLOOR AT APPROXIMATELY 1730 THIS EVENING. 30MG OF LACTULOSE WAS GIVEN. WILL CONTINUE PLAN OF CARE.
[2023-04-07 19:23] VITALS: BP 97/58
--- NOTE | 2023-04-08 05:30 | NUR ---
SHIFT SUMMERYF, PT RESTING IN BED, PT TAKING LACTALOSE WITH OUT COMPLANT, UP TO BSC X1 VOIDED BUT NO STOOL. PT ALERT AND ORIENTED STEADY ON HIS FEET.
[2023-04-08 06:37] LABS: Hematocrit 22.1 % (37.0-53.0); Hemoglobin 7.6 g/dL (13.5-17.5); Mean Corpuscular HGB 34.7 pg (26.0-34.0); Mean Corpuscular HGB Conc 34.4 g/dL (31.5-36.5); Mean Corpuscular Volume 101 fL (80-100); Mean Platelet Volume 10.6 fL (9.1-12.4); Platelet Count 64 K/mm3 (150-400); RDW Coefficient Variation 15.2 % (11.7-14.2); RDW Standard Deviation 55.5 fL (35.1-46.3); Red Blood Cell Count 2.19 M/mm3 (4.30-5.90); White Blood Cell Count 3.25 K/mm3 (4.00-11.30)
[2023-04-08 06:54] VITALS: BP 89/50
[2023-04-08 06:58] LABS: Albumin, Blood 2.3 g/dL (3.4-5.0); Albumin/Globulin Ratio 0.7 (0.8-1.8); Bilirubin, Total 2.3 mg/dL (0.1-1.0); Bun/Creatinine Ratio 15.3 (12.0-20.0); Calcium, Blood 8.4 mg/dL (8.5-10.1); Globulin, Blood 3.1 g/dL (2.2-4.0); Potassium, Blood 4.8 mmol/L (3.5-5.5); Total Protein, Blood 5.4 g/dL (6.4-8.2)
[2023-04-08 07:35] VITALS: BP 92/53
--- NOTE | 2023-04-08 12:01 | NUR ---
PT AMMONIA LEVELS CONTINUE TO RISE. PATIENT TRANSFERRED TO ROOM 350 AT 1200.
--- NOTE | 2023-04-08 12:15 | NUR ---
This morning patient appears more confused, somnolent. Extra dose of lactulose given, patient had 1 BM late this morning. MD aware, plan to give lactulose and reassess this afternoon. Patient became more confused, stating "I need to go to the bathroom" when staff trying to help patient, he said "your gonna piss me off". Patient told staff to leave him alone, staff provided space for patient, but continued to watch for safety. Patients gait unsteady. Pts girlfriend arrived to help, patient moved to SCU for closer monitoring for safety. Bedside report given to RN.
--- NOTE | 2023-04-08 12:18 | NUR ---
PATIENT TRANSFERRED TO ROOM 350, DEB AT BEDSIDE HELPFUL, PATIENT VERY AGITATED, THREATENING, CALM AT THE MOMENT
[2023-04-08 16:03] VITALS: BP 84/44
--- NOTE | 2023-04-08 18:28 | NUR ---
PATIENT TRANSFERRED FROM [facility] FOR INCREASED AGITATION, THREATENING. SECURITY ACCOMPANIED TO 350. REPORTED TO DR MOROCHO, PATIENT MEDICATED WITH ONE TIME DOSE OF ATIVAN, DEB HELPFUL AT BED SIDE, PATIENT DROWSY BUT WAKES EASILY AND LESS AGITATED AND AGRESSIVE. TO BE CALLED FOR ANY NEEDS. BED ALARM ON, WILL RELAY TO PM RN
[2023-04-08 19:33] VITALS: BP 105/57
[2023-04-09 05:02] VITALS: BP 116/68
[2023-04-09 06:58] LABS: BASOPHILS ABSOLUTE AUTO 0.01 K/mm3 (0.00-0.23); BASOPHILS PERCENT AUTO 0 % (0-2); EOSINOPHILS ABSOLUTE AUTO 0.19 K/mm3 (0.00-0.68); EOSINOPHILS PERCENT AUTO 5 % (0-6); Hemoglobin 8.1 g/dL (13.5-17.5); IMMATURE GRAN ABSOLUTE AUTO 0.01 K/mm3 (0.00-0.10); IMMATURE GRAN PERCENT AUTO 0 % (0-1); LYMPHOCYTES ABSOLUTE AUTO 0.53 K/mm3 (0.84-5.20); LYMPHOCYTES PERCENT AUTO 13 % (21-46); MONOCYTES ABSOLUTE AUTO 0.38 K/mm3 (0.16-1.47); MONOCYTES PERCENT AUTO 10 % (4-13); Mean Corpuscular HGB 34.6 pg (26.0-34.0); Mean Corpuscular HGB Conc 33.8 g/dL (31.5-36.5); Mean Corpuscular Volume 103 fL (80-100); Mean Platelet Volume 9.8 fL (9.1-12.4); NEUTROPHILS ABSOLUTE AUTO 2.84 K/mm3 (1.96-9.15); NEUTROPHILS PERCENT AUTO 72 % (41-73); Platelet Count 74 K/mm3 (150-400); RDW Coefficient Variation 15.1 % (11.7-14.2); RDW Standard Deviation 56.1 fL (35.1-46.3); Red Blood Cell Count 2.34 M/mm3 (4.30-5.90); White Blood Cell Count 3.96 K/mm3 (4.00-11.30)
[2023-04-09 07:15] LABS: Albumin, Blood 2.5 g/dL (3.4-5.0); Albumin/Globulin Ratio 0.7 (0.8-1.8); Bun/Creatinine Ratio 14.8 (12.0-20.0); Calcium, Blood 8.5 mg/dL (8.5-10.1); Creatinine, Blood 2.71 mg/dL (0.60-1.20); Globulin, Blood 3.5 g/dL (2.2-4.0); Potassium, Blood 3.9 mmol/L (3.5-5.5)
[2023-04-09 07:17] VITALS: BP 91/58
--- NOTE | 2023-04-09 11:32 | NUR ---
PATIETN ANXIOUS TO BE DISCHARGED, NO ORDERS ENTERED YET, HELPFUL AT BEDSIDE, CALL LIGHT WITH IN REACH
== END 2023-04-09 12:31 | disposition home or self-care (01) | DRG 442 ==
LOC: ER 10:03 → MEDS 14:41 → ENPENDDIS 04-09 11:50 → MEDS 04-09 12:31
PROVIDERS: Family Medicine; Family Medicine Adult Medicine; Student in an Organized Health Care Education/Training Program; ADMIT Internal Medicine
DX: K76.82 Hepatic encephalopathy (principal); D61.818 Other pancytopenia; N18.4 Chronic kidney disease, stage 4 (severe); K70.31 Alcoholic cirrhosis of liver with ascites; N40.0 Benign prostatic hyperplasia without lower urinary tract symptoms; K72.10 Chronic hepatic failure without coma; D53.9 Nutritional anemia, unspecified; F10.20 Alcohol dependence, uncomplicated; D69.59 Other secondary thrombocytopenia; D63.1 Anemia in chronic kidney disease; K31.89 Other diseases of stomach and duodenum; R16.1 Splenomegaly, not elsewhere classified; Z98.890 Other specified postprocedural states; Z87.891 Personal history of nicotine dependence; Z79.899 Other long term (current) drug therapy
CPT/HCPCS: 36415; 80053; 82140; 85025; 85027; 96374; 99285; A9270; G0378; J2060

== ENCOUNTER 2023-04-10 21:21 | Inpatient (IN) | payer OTHER ==
[~2023-04-10] VITALS: Ht 172.7 cm; Wt 93.4 kg
[2023-04-10 22:12] LABS: Hematocrit 26.7 % (37.0-53.0); Mean Corpuscular HGB 34.9 pg (26.0-34.0); Mean Corpuscular HGB Conc 33.7 g/dL (31.5-36.5); Mean Corpuscular Volume 104 fL (80-100); Mean Platelet Volume 9.4 fL (9.1-12.4); Platelet Count 78 K/mm3 (150-400); RDW Standard Deviation 57.2 fL (35.1-46.3); Red Blood Cell Count 2.58 M/mm3 (4.30-5.90); White Blood Cell Count 2.75 K/mm3 (4.00-11.30)
[2023-04-10 22:29] LABS: Albumin, Blood 2.6 g/dL (3.4-5.0); Albumin/Globulin Ratio 0.7 (0.8-1.8); Bilirubin, Total 3.8 mg/dL (0.1-1.0); Bun/Creatinine Ratio 13.6 (12.0-20.0); Calcium, Blood 8.7 mg/dL (8.5-10.1); Creatinine, Blood 3.32 mg/dL (0.60-1.20); Globulin, Blood 3.7 g/dL (2.2-4.0); Potassium, Blood 4.3 mmol/L (3.5-5.5); Total Protein, Blood 6.3 g/dL (6.4-8.2)
[2023-04-10 22:44] LABS: BAND PERCENT MAN 4 % (0-8); BASOPHILS ABSOLUTE MAN 0.02 K/mm3 (0.00-0.23); BASOPHILS PERCENT MAN 1 % (0-2); EOSINOPHILS PERCENT MAN 0 % (0-6); LYMPHOCYTES ABSOLUTE MAN 0.22 K/mm3 (0.84-5.20); LYMPHOCYTES PERCENT MAN 8 % (21-46); MONOCYTES ABSOLUTE MAN 0.11 K/mm3 (0.16-1.47); MONOCYTES PERCENT MAN 4 % (4-13); NEUTROPHILS ABSOLUTE MAN 2.39 K/mm3 (1.96-9.15); SEG NEUTROPHILS PERCENT MAN 83 % (41-73); TOTAL CELLS COUNTED 100
[2023-04-10 23:04] LABS: International Normalized Ratio 1.69; Prothrombin Time Results 17.2 Sec (9.7-11.5)
[2023-04-11] VITALS (79 sets, daily range): BP systolic 72–158; BP diastolic 42–92
--- NOTE | 2023-04-11 02:48 | NUR ---
ARRIVAL TO PCU PT ARRIVED VIA ED GURNEY. PT A/O X 1. REPEATS HIS NAME WHEN ASKED ABOUT YEAR, LOCATION, OR CURRENT EVENTS. PT FOLLOWS COMMANDS AT TIMES, OTHERS PT STATES "I'M SORRY, I'M SORRY". BEDSIDE SWALLOW EVAL DONE AND PT UNABLE TO SWALLOW SAFELY. ABD DISTENDED AND PAINFUL. LUNG SOUNDS CLEAR W/ DIMINISHED BASES. ON RA. SR RATE 80'S. BP SOFT W/ MAP 57-62. HOSP CALLED AND ORDER RECEIVED TO TRANSFER PT TO ICU FOR LEVOPHED GTT. PT ROOMMATE AT BEDSIDE AND STATES PT'S LAST DOES OF LACTULOSE WAS AT 1800. ORDER RECEIVED FROM HOSP FOR LACTULOSE. SEE EMAR.
--- NOTE | 2023-04-11 03:16 | NUR ---
TRANSFER TO ICU 2 PT TRANSFERRED VIA BED TO ICU 02. THIS RN AT BEDSIDE. PT CALM, W/O S/S OF DISTRESS. ROOMATE TOOK BELONGINGS AND SHOWED TO ICU WAITING ROOM.
[2023-04-11 03:57] LABS: Hemoglobin 8.2 g/dL (13.5-17.5); Mean Corpuscular HGB 34.9 pg (26.0-34.0); Mean Corpuscular HGB Conc 34.2 g/dL (31.5-36.5); Mean Corpuscular Volume 102 fL (80-100); Mean Platelet Volume 10.4 fL (9.1-12.4); Platelet Count 53 K/mm3 (150-400); RDW Coefficient Variation 14.9 % (11.7-14.2); RDW Standard Deviation 55.8 fL (35.1-46.3); Red Blood Cell Count 2.35 M/mm3 (4.30-5.90); White Blood Cell Count 5.38 K/mm3 (4.00-11.30)
[2023-04-11 04:16] LABS: Albumin, Blood 2.4 g/dL (3.4-5.0); Albumin/Globulin Ratio 0.7 (0.8-1.8); Bilirubin, Total 3.9 mg/dL (0.1-1.0); Bun/Creatinine Ratio 13.9 (12.0-20.0); Creatinine, Blood 3.24 mg/dL (0.60-1.20); Globulin, Blood 3.4 g/dL (2.2-4.0); Potassium, Blood 5.1 mmol/L (3.5-5.5); Total Protein, Blood 5.8 g/dL (6.4-8.2)
[2023-04-11 04:21] LABS: BAND PERCENT MAN 7 % (0-8); BASOPHILS PERCENT MAN 0 % (0-2); EOSINOPHILS PERCENT MAN 0 % (0-6); LYMPHOCYTES ABSOLUTE MAN 0.05 K/mm3 (0.84-5.20); LYMPHOCYTES PERCENT MAN 1 % (21-46); MONOCYTES ABSOLUTE MAN 0.32 K/mm3 (0.16-1.47); MONOCYTES PERCENT MAN 6 % (4-13); SEG NEUTROPHILS PERCENT MAN 86 % (41-73); TOTAL CELLS COUNTED 100
--- NOTE | 2023-04-11 06:09 | NUR ---
SHIFT SUMMERY PT WAS A TRANSFER FROM PCU AT APPPX 0300 FOR HYPOTENSION. UPON ARRIVAL TO THE UNIT PT WAS LETHARGIC BUT WOULD AWAKEN TO ANY STIMULATION AND CURSE AT STAFF. HE WAS AND IS ONLY ORIENTED TO HIS SELF. HE IS VERY JAUNDICE W/EXTREMELY DISTENDED ABDOMEN. LEVOPHED WAS STARTED UPON HIS ARRIVAL TO THE UNIT AND IS INFUSING TO MAINTAIN MAP >65. PT IS ON RA W/OXYGEN SAT 100% AT THIS TIME. HE HAD COMPLAINTS OF NAUSEA AND WAS GIVEN ZOFRAN PER MD ORDER. HE HAS A CONDOM CATH IN PLACE BUT HAS NOT VOIDED SINCE HE ARRIVED TO THE UNIT.
--- NOTE | 2023-04-11 07:40 | NUR ---
ASSUMED CARE: REPORT RECEIVED FROM RUBÉN Rios RN. ASSUMED CARE OF THIS PT AT APPROX 0700. ON ASSESSMENT, THE PT IS SOMNOLENT & DIFFICULT TO WAKE. HE GRIMACES TO NOXIOUS STIMULI BUT IS NOT OPENING EYES OR VERBALIZING AT THIS TIME. LS DIM IN BASES, FINE CRACKLES NOTED IN RLL. PT ON RA W/ O2 SATS > 95%. MONITOR SHOWS SR W/ HR 60-70s LEVOPHED INFUSING AT 5 MCG/MIN FOR HYPOTENSION. PT HAS LARGE, DISTENDED ABDOMEN THAT IS TENDER TO PALPATION. HX WEEKLY PARACENTESIS PROCEDURES. NPO R/T SOMNOLENCE. PT HAS NOT VOIDED SINCE ARRIVAL TO ICU, WILL DISCUSS W/ PROVIDER THIS AM. SKIN CONDITION OVERALL JAUNDICED, INTACT. Q2H REPOSITIONING TO MAINTAIN SKIN INTEGRITY. WILL CONTINUE TO MONITOR & UPDATE NEEDED.
--- NOTE | 2023-04-11 10:30 | NUR ---
DR BERGER / UPDATE: PROVIDER HAS BEEN AT BEDSIDE THIS AM TO EVAL PT. DISCUSSED PT's INABILITY TO SAFELY TAKE PO LACTULOSE AT THIS TIME, LACTULOSE ENEMAS ORDERED & PO DISCONTINUED. ALSO DISCUSSED THAT PT HAS HAD NO URINARY VOID SINCE ADMISSION. SHE STS TO BLADDER SCAN THE PT & FOLLOW BLADDER MANAGEMENT PROTOCOL IF EXPERIENCING RETENTION. BLADDER SCAN SHOWS 338ML. WILL RESCAN IF CONTINUING TO HAVE NO VOID. SHE WOULD LIKE TO START LOW RATE MAINTAINENCE IVF, ORDERS PLACED FOR CONTINUOUS NS. AFTER ICU ROUNDING THIS AM, THIS RN HAS CONTACTED PROVIDER W/ CONCERN FOR THIS PT. BASED ON PT's STATUS & INABILITY TO SAFELY TAKE HOME DOSE OF PO RIFAXIMIN. DISCUSSED POSSIBLE NEED FOR ABX R/T POSSIBILITY OF SPONTANEOUS BACTERIAL PERITONITIS. DR BERGER STS THAT SHE WILL REVIEW THE PT's CHART & PLACE ORDERS IF NECESSARY.
--- NOTE | 2023-04-11 11:44 | NUR ---
"Spiritual Care | Nurse Request Pt. is resting and is not responsive to my visit. SO Jeana is present and welcomes my visit. SO is displaying evidence of being strong for the Pt. , but the SO is personally insettled as her mother passed in the same ICU room in November. Listen with empathy and a calming presence. Facilitated a life review of both the Pt. and SO, but focused pastoral care on the SO. SO displayed appropriate grief and emotion, which became more pronounced when she verbalized her fear of losing the Pt. SO welcomed prayer for both the Pt. and herself. Gave prayers of intercession on behalf of both. After prayer the SO displayed evidence of an elevated but realistic mood. SO verbalized gratitude for the spiritual care visit."
[2023-04-11 14:00] LABS: Source, Urine Straight Cath
[2023-04-11 14:07] LABS: Appearance, Urine Clear (Clear); Bilirubin, Urine Neg (Neg); Blood, Urine Neg (Neg); Color, Urine Amber (P-Yellow); Glucose Qualitative, Urine Neg (Neg); Ketones, Urine Neg (Neg); Leukocyte Esterase, Urine Neg (Neg); Nitrite, Urine Neg (Neg); Protein, Urine Neg (Neg); Specific Gravity, Urine 1.015 (1.003-1.022); Urobilinogen, Urine NORM (Normal)
--- NOTE | 2023-04-11 17:39 | NUR ---
Met with pt's friend Jeana and pt's sis-in-law at bedside. The pt has continued to yell out the same couple of phrases today without fail. 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 The patient was diagnosed just over a year ago with end stage liver disease, and quit drinking right away, according to family. However, he has continued to decline, and more quickly recently than previously. He was discharged 2 days ago after being admitted with the same thing as now, liver failure and hepatic encephalopathy. He continues to get lactulose pr with little results. Friend Jeana states pt was being discussed by [facility] for a liver transplant. However, he is likely not a candidate in his current status, wich doesn't appear to be resolving. Family are tearful, but want to discuss with Dr. Kulkarni before making any further choices, although they do sound like they are leaning to comfort care. Plan to assist with ethics consult if needed, as Jeana states she is unable to make the decision on her own, and would appreciate the guidance. Plan to meet them tomorrow with Dr. Kulkarni.
--- NOTE | 2023-04-11 18:00 | NUR ---
SHIFT SUMMARY: THE PT IS AWAKE THIS AFTERNOON BUT IS CONFUSED & IRRITABLE. HE ONLY SPEAKS IN PROFANITIES & NONSENSICAL PHRASES. DOES NOT FOLLOW DIRECTIONS & IS NOT REDIRECTABLE. LACTULOSE ENEMAS PER EMAR. LS CLEAR T/O, ON RA W/ O2 SATS > 95%. MONITOR SHOWS SR W/ HR 70-90s, LEVOPHED INFUSING AT 4 MCG/MIN FOR HYPOTENSION. PT C/O NAUSEA x1 THIS SHIFT, STATING REPEATEDLY "I AM GOING TO PUKE ON YOU." MEDS PER EMAR. NPO R/T AMS & INABILITY TO SAFELY FOLLOW DIRECTIONS. RECTAL TUBE PLACED FOR LACTULOSE ENEMA ADMIN THIS AFTERNOON, PT HAD CONTINUED C/O RECTAL PRESSURE & YELLS "I NEED TO SH*T" REPEATEDLY, RECTAL TUBE REMOVED PER THIS RN W/ SOME RELIEF FOR PT. PT BLADDER SCANNED x2 THIS SHIFT & THEN STRAIGHT CATH PERFORMED AT APPROX 1330 FOR SCAN > 400ML. NO VOID SINCE THAT TIME. BLADDER SCAN PRN. SKIN OVERALL JAUNDICED, INTACT. Q2H REPOSITIONING TO MAINTAIN SKIN INTEGRITY. WILL CONTINUE TO MONITOR & REPORT OFF TO ONCOMING RN.
--- NOTE | 2023-04-11 19:53 | NUR ---
ASSUMPTION OF CARE ASSUMED CARE OF PT AT CHANGE OF SHIFT. PT IS VERY AGITATED AND CONFUSED, CURSING STAFF AND USING VERY EXPLICIT LANGUAGE AND CONVERSATION. I GAVE PT SOME ICE CHIPS WHICH HE TOLERATED WELL. PT IS ALSO YELLING IN PAIN. HE HAS LEVOPHED INFUSING TO MAINTAIN MAP > 65. NS @ 50 WELL. PT IS JAUNDICE W/SEVERELY DISTENDED ABDOMEN. SPOKE TO PROVIDER YEN TO REQUEST PAIN MEDICATION AND FOR LACTULOSE ENEMAS TO BE CHANGED TO PO. ORDERS WERE GIVEN AND A NURSE NOTIFY WAS PUT IN PER PROVIDER REQUEST TO NOTIFY IF PT BECOMES UNABLE TO TAKE PO. PT STATED HE NEEDED TO HAVE ABM AND WAS PLACED ON A BEDPAN BUT DID NOT HAVE A BM. PT IS SR ON THE CNC MACHINIST AT THIS TIME.
--- NOTE | 2023-04-11 22:59 | NUR ---
WHILE PRIMARY RN WAS OFF THE UNIT, THIS RN RESPONDS TO PT'S ROOM SECONDARY TO HIS IV BEEPING. WHEN ENTERING ROOM, NOTED THAT PT HAD PULLED OUT HIS PICC LINE FROM LEFT ARM. DIRECT PRESSURE HELD FOR APPROX 4-5 MINUTES SECONDARY TO PT BEING ON ANTICOAGULATION. PRIMARY RN RETURNS TO UNIT. UPDATE GIVEN. PT'S DEMONSTRATES CONFUSION.
--- NOTE | 2023-04-11 23:38 | NUR ---
I HAD STEPPED OFF THE UNIT AND UPON RETURNING CRIS BOTELLO WAS IN PT ROOM AND HE HAD PULLED OUT HIS PICK LINE. PT CONTINUES TO BE CONFUSED USING CURSE WORDS AND MAKING INAPPROPRIATE AND OFFENSIVE COMMENTS TO STAFF. AN ORDER FOR SOFT BILATERAL WRIST RESTRAINTS WAS OBTAINED. PT IS TOLERATING PO INTAKE WELL AT THIS TIME. VSS. LEVOPHED ON SB.
[2023-04-12] VITALS (26 sets, daily range): BP systolic 105–139; BP diastolic 48–112
[2023-04-12 05:44] LABS: BASOPHILS ABSOLUTE AUTO 0.01 K/mm3 (0.00-0.23); BASOPHILS PERCENT AUTO 0 % (0-2); EOSINOPHILS ABSOLUTE AUTO 0.04 K/mm3 (0.00-0.68); EOSINOPHILS PERCENT AUTO 1 % (0-6); Hematocrit 23.8 % (37.0-53.0); Hemoglobin 8.1 g/dL (13.5-17.5); IMMATURE GRAN ABSOLUTE AUTO 0.05 K/mm3 (0.00-0.10); IMMATURE GRAN PERCENT AUTO 1 % (0-1); LYMPHOCYTES ABSOLUTE AUTO 0.31 K/mm3 (0.84-5.20); LYMPHOCYTES PERCENT AUTO 4 % (21-46); MONOCYTES PERCENT AUTO 10 % (4-13); Mean Corpuscular HGB 35.1 pg (26.0-34.0); Mean Corpuscular Volume 103 fL (80-100); Mean Platelet Volume 10.5 fL (9.1-12.4); NEUTROPHILS ABSOLUTE AUTO 6.71 K/mm3 (1.96-9.15); NEUTROPHILS PERCENT AUTO 85 % (41-73); Platelet Count 53 K/mm3 (150-400); RDW Standard Deviation 56.5 fL (35.1-46.3); Red Blood Cell Count 2.31 M/mm3 (4.30-5.90); White Blood Cell Count 7.92 K/mm3 (4.00-11.30)
[2023-04-12 05:53] LABS: Albumin, Blood 2.5 g/dL (3.4-5.0); Albumin/Globulin Ratio 0.7 (0.8-1.8); Bilirubin, Total 3.1 mg/dL (0.1-1.0); Bun/Creatinine Ratio 16.4 (12.0-20.0); Calcium, Blood 8.4 mg/dL (8.5-10.1); Creatinine, Blood 3.18 mg/dL (0.60-1.20); Globulin, Blood 3.4 g/dL (2.2-4.0); Potassium, Blood 5.2 mmol/L (3.5-5.5); Total Protein, Blood 5.9 g/dL (6.4-8.2)
--- NOTE | 2023-04-12 06:55 | NUR ---
SHIFT SUMMERY PT HAS BEEN COMBATIVE AND CURSING STAFF WELL MAKING SEXUALLY EXPLICIT COMMENTS TO MULTIPLE STAFF MEMBERS. HE PULLED OUT HIS PICC LINE AND HAS BEEN RESTRAINED W/SOFT WRIST RESTRAINTS PER MD ORDER. HE WAS ON LEVOPHED AT THE BEGINNING OF THE SHIFT BUT IT WAS TITRATED OFF OVERNIGHT. PT BP IS WNL. PT HAS REQUIRED STRAIGHT CATH X2 DUE TO INABILITY TO VOID. HE IS ON ROOM AIR W/OXYGEN SAT 100%.
--- NOTE | 2023-04-12 07:15 | NUR ---
CARE ASSUMPTION DURING BEDSIDE SHIFT REPORT W RUBÉN RN THE PT IS LYING IN BED AWAKE COMMUNICATING APPROPRIATELY W KRAIG RN. PT IN SWB RESTRAINTS. PT'S VSS AND ON RM AIR. PT ALERT AND ORIENTED X4. PT AGREEING NOT TO PULL OUT LINES IF HE IS TAKEN OUT OF RESTRAINTS. NS RUNNING AT 50ML/HR.
--- NOTE | 2023-04-12 07:51 | NUR ---
Received MAD Consult for patient making sexually explicit comments. Spoke with supervisor in charge, Alisia, and patient has been confused. She isn't sure what his mental status is this morning, but he has been assigned a male nurse who is orienting with a female nurse, so they are hoping that will stop the comments. Patient was receiving patient care when I went up and did not sound aggressive. Asked Nursing to call once he was assessed if additional support was needed. Pastoral care to round on staff later this morning as well.
[2023-04-12 10:31] LABS: Source, Urine Foley catheter
[2023-04-12 10:34] LABS: Appearance, Urine Clear (Clear); Bilirubin, Urine Neg (Neg); Blood, Urine 1+ (Neg); Color, Urine Yellow (P-Yellow); Glucose Qualitative, Urine Neg (Neg); Ketones, Urine Neg (Neg); Leukocyte Esterase, Urine 1+ (Neg); Nitrite, Urine Neg (Neg); Protein, Urine Neg (Neg); Urobilinogen, Urine NORM (Normal)
[2023-04-12 10:44] LABS: Squamous Epithelial Cells Few /hpf (Few)
[2023-04-12 10:45] LABS: Bacteria Mod /hpf
--- NOTE | 2023-04-12 17:04 | NUR ---
UPDATE DR. GARCIA AT BS SPEAKING W PT AND PT'S SO. NEW ORDERS FOR D5W W BICARB AND STAT ABG GIVEN.
[2023-04-12 17:16] LABS: PO2 Arterial 95.2 mmHg (80-100); pH Blood Arterial 7.39 (7.35-7.45)
--- NOTE | 2023-04-12 17:21 | NUR ---
UPDATE DR. GARCIA NOTIFIED OF ABG RESULTS. NO NEW ORDERS AT THIS TIME.
--- NOTE | 2023-04-12 17:23 | NUR ---
DAYSHIFT SUMMARY PT IS ALERT AND ORIENTED COMMUNICATING W STAFF APPROPRIATELY THIS SHIFT. PT'S BP WNL AND STABLE THIS SHIFT. MONITOR SHOWING SR 80'S-90'S THIS SHIFT BUT GETTING HIGH 105 WHEN WORKING W PT. PT AFEBRILE THIS SHIFT W PEAK TEMP OF 97.4. PT ON RM AIR W SPO2 >94%, PT HAD LOUISE CATHETER PLACED AFTER BLADDER SCAN SHOWED >600ML AND PROVIDER WANTING INDWELLING CATHETER INSTEAD OF A THIRD STRAIGHT CATH, CATHETER DRAINING DARK RODRICK URINE. PT WORKING W BOTH PT AND OT THIS SHIFT. PT HAD PARACENTESIS THIS SHIFT AND ALBUMIN INFUSION FOLLOWING LARGE VOLUME REMOVED DURING PARACENTESIS. DR. GARCIA CONSULTED AT REQUEST OF THE PT THIS IS THE PT'S OUTPATIENT NEPHROLOGISTS. PT CHANGED TO MED TELE STATUS THIS AM AND WILL BE MOVING TO RM [id number]. WILL REPORT TO MEDICAL FLOOR NURSE.
--- NOTE | 2023-04-12 18:15 | NUR ---
TRANSFER ICU TO [facility] PT REPORT RECEIVED FROM EDILSON BOTELLO. PT ARRIVED AWAKE AND ALERT VIA BED. WAS ABLE TO TRANSFER SELF WITH SBA. GAIT SLOW AND STEDY. DENIED PAIN OR SOB. BICARB GTT INFUSING RIGHT A/C. FAMILY AT BEDSIDE. CONTINUE POC.
[2023-04-13 02:38] VITALS: BP 114/59
--- NOTE | 2023-04-13 04:02 | NUR ---
SHIFT LARGELY UNREMARKABLE. LOUISE CATHETER IN PLACE AND DRAINING WELL, NO COMPLAINTS OF PAIN. PT FREQUENTLY FORGETS LOUISE IS IN PLACE AND ATTEMPTS TO GET UP TO VOID BUT IS VERY EASILY REDIRECTED. SLEEPY THROUGHOUT SHIFT BUT ONLY TRULY SLEEPS IN SHORT BURSTS SPORADICALLY. AOX2-3 THROUGHOUT SHIFT. THINKS WE ARE SOMEHOW RELATED OR THAT HIM AND MY MOTHER ARE FRIENDS BUT IS ABLE TO TELL ME WHO HE IS, WHERE HE IS, AND WHY. VERY PLEASANT, COOPERATIVE WITH CARE. IV PLACED THIS MORNING IN LAC WITH NO DIFFICULTY. 1 LARGE BM PASSED EARLY THIS MORNING. STEADY ONE PERSON ASSIST TO BEDSIDE COMMODE WITH FWW AND GAIT BELT. NO COMPLAINTS OF PAIN THROUGHOUT SHIFT. SODIUM BICARBONATE RUNNING THROUGHOUT SHIFT WITH NO DIFFICULTY. BED IS LOCKED IN LOWEST POSITION. CALL LIGHT LEFT WITHIN REACH.
[2023-04-13 06:06] LABS: BASOPHILS PERCENT AUTO 0 % (0-2); EOSINOPHILS ABSOLUTE AUTO 0.12 K/mm3 (0.00-0.68); EOSINOPHILS PERCENT AUTO 2 % (0-6); Hematocrit 20.7 % (37.0-53.0); Hemoglobin 7.2 g/dL (13.5-17.5); IMMATURE GRAN ABSOLUTE AUTO 0.02 K/mm3 (0.00-0.10); IMMATURE GRAN PERCENT AUTO 0 % (0-1); LYMPHOCYTES ABSOLUTE AUTO 0.45 K/mm3 (0.84-5.20); LYMPHOCYTES PERCENT AUTO 8 % (21-46); MONOCYTES ABSOLUTE AUTO 0.71 K/mm3 (0.16-1.47); MONOCYTES PERCENT AUTO 13 % (4-13); Mean Corpuscular HGB 35.3 pg (26.0-34.0); Mean Corpuscular HGB Conc 34.8 g/dL (31.5-36.5); Mean Corpuscular Volume 102 fL (80-100); Mean Platelet Volume 10.8 fL (9.1-12.4); NEUTROPHILS ABSOLUTE AUTO 4.29 K/mm3 (1.96-9.15); NEUTROPHILS PERCENT AUTO 77 % (41-73); RDW Coefficient Variation 14.8 % (11.7-14.2); RDW Standard Deviation 55.3 fL (35.1-46.3); Red Blood Cell Count 2.04 M/mm3 (4.30-5.90); White Blood Cell Count 5.59 K/mm3 (4.00-11.30)
[2023-04-13 06:13] LABS: Platelet Count 50 K/mm3 (150-400)
[2023-04-13 06:40] LABS: Albumin, Blood 2.3 g/dL (3.4-5.0); Albumin/Globulin Ratio 0.8 (0.8-1.8); Bilirubin, Total 1.9 mg/dL (0.1-1.0); Bun/Creatinine Ratio 20.2 (12.0-20.0); Calcium, Blood 8.1 mg/dL (8.5-10.1); Creatinine, Blood 3.07 mg/dL (0.60-1.20); Globulin, Blood 2.9 g/dL (2.2-4.0); Phosphorus, Blood 3.6 mg/dL (2.5-4.9); Potassium, Blood 4.5 mmol/L (3.5-5.5); Total Protein, Blood 5.2 g/dL (6.4-8.2)
[2023-04-13 07:46] VITALS: BP 91/44
[2023-04-13 09:37] LABS: Percent Saturation 26.3 % (20.0-50.0)
[2023-04-13 15:30] VITALS: BP 103/52
--- NOTE | 2023-04-13 17:08 | NUR ---
EVENING NOTE PT ALERT. TALKING ON THE PHONE. HAS A HISTORY OF REMOVING INDWELLING LINES AND TUBES. TALKED WITH HIM ABOUT NOT PULLING THE LOUISE OUT. HAVE REMINDED HIM MULTIPLE TIMES. HE HAS NOT TRIED TO TOUCH THE CATHETER SO FAR. VSS. UP TO BSC FOR BM. ABD LARGE, SOFT ROUND. SKIN JAUNDICED. TAKES HIS LACTULOSE EASILY. BICARB GTT INFUSING AT 75ML/HR. URINE OUTPT ADEQUATE. CONTINUE POC.
[2023-04-13 19:46] VITALS: BP 126/69
[2023-04-14 04:17] VITALS: BP 113/56
[2023-04-14 05:39] LABS: BASOPHILS ABSOLUTE AUTO 0.01 K/mm3 (0.00-0.23); BASOPHILS PERCENT AUTO 0 % (0-2); EOSINOPHILS ABSOLUTE AUTO 0.19 K/mm3 (0.00-0.68); EOSINOPHILS PERCENT AUTO 3 % (0-6); Hematocrit 20.9 % (37.0-53.0); Hemoglobin 7.4 g/dL (13.5-17.5); IMMATURE GRAN ABSOLUTE AUTO 0.03 K/mm3 (0.00-0.10); IMMATURE GRAN PERCENT AUTO 1 % (0-1); LYMPHOCYTES ABSOLUTE AUTO 0.52 K/mm3 (0.84-5.20); LYMPHOCYTES PERCENT AUTO 9 % (21-46); MONOCYTES ABSOLUTE AUTO 1.03 K/mm3 (0.16-1.47); MONOCYTES PERCENT AUTO 17 % (4-13); Mean Corpuscular HGB 35.4 pg (26.0-34.0); Mean Corpuscular HGB Conc 35.4 g/dL (31.5-36.5); Mean Corpuscular Volume 100 fL (80-100); Mean Platelet Volume 10.8 fL (9.1-12.4); NEUTROPHILS ABSOLUTE AUTO 4.21 K/mm3 (1.96-9.15); NEUTROPHILS PERCENT AUTO 70 % (41-73); Platelet Count 71 K/mm3 (150-400); RDW Coefficient Variation 14.6 % (11.7-14.2); RDW Standard Deviation 53.1 fL (35.1-46.3); Red Blood Cell Count 2.09 M/mm3 (4.30-5.90); White Blood Cell Count 5.99 K/mm3 (4.00-11.30)
[2023-04-14 06:11] LABS: Albumin, Blood 2.4 g/dL (3.4-5.0); Anion Gap 9 mmol/L (6-16); Blood Urea Nitrogen 67 mg/dL (8-24); CO2, Blood 20 mmol/L (21-32); Chloride, Blood 101 mmol/L (98-108); Creatinine, Blood 3.19 mg/dL (0.60-1.20); Glomerular Filtration Rate 22 (60-); Glucose, Blood 96 mg/dL (70-99); Potassium, Blood 4.4 mmol/L (3.5-5.5); Sodium, Blood 130 mmol/L (136-145)
[2023-04-14 07:28] VITALS: BP 103/59
--- NOTE | 2023-04-14 13:32 | NUR ---
RN NOTE LOUISE REMOVED AT 0815HRS. MR NGUYEN HAS NOT VOIDED YET, ABOUT TO GET INTO THE SHOWER WHICH MIGHT HELP. TELEMETRY REMOVED PER T.O. FROM DR BERGER. UP TO THE CHAIR THIS MORNING, TOLERATED WELL. DENIED PAIN. ABD FIRM, DISTENDED.
[2023-04-14 14:38] VITALS: BP 117/67
--- NOTE | 2023-04-14 17:10 | NUR ---
SHIFT SUMMARY MR NGUYEN IS ORIENTATED BUT NOT TO MONTH/YEAR. AMBULATED IN ROOM WITH GAIT BELT AND WALKER AND 1 PERSON ASSISTANCE. LOUISE CATHETER REMOVED THIS AM AND HAS VOIDED SINCE. IVF AT 50CC/HR. TOLERATED PO LACTULOSE. PT ENGAGED WITH VISITORS AT BEDSIDE. CALL LIGHT IN REACH, UP IN CHAIR.
--- NOTE | 2023-04-14 17:34 | NUR ---
Spiritual Care Visit. Pt. is awake and sitting in a chair with his legs up on the bed when he welcomes my visit. Pt. is pleasant, and is only a little unsettled by the shreiks of a neighboring Pt. Facilitate a life review. This straightedge machine operator helper had been with [facility] when Pt. was in ICU. Considered matters of loretta, help and hope. Pt. displayed evidence of engagement and motivation to pursue healthy a lifestyle. Pt. verbalized gratitude for the medical care he has received. Prayed with Pt. Pt. verbalized gratitude for the spiritual care visit.
[2023-04-14 19:39] VITALS: BP 113/62
[2023-04-15 03:23] VITALS: BP 117/68
[2023-04-15 05:22] LABS: BASOPHILS ABSOLUTE AUTO 0.01 K/mm3 (0.00-0.23); BASOPHILS PERCENT AUTO 0 % (0-2); EOSINOPHILS PERCENT AUTO 4 % (0-6); Hematocrit 20.9 % (37.0-53.0); Hemoglobin 7.5 g/dL (13.5-17.5); IMMATURE GRAN ABSOLUTE AUTO 0.02 K/mm3 (0.00-0.10); IMMATURE GRAN PERCENT AUTO 0 % (0-1); LYMPHOCYTES ABSOLUTE AUTO 0.43 K/mm3 (0.84-5.20); LYMPHOCYTES PERCENT AUTO 9 % (21-46); MONOCYTES ABSOLUTE AUTO 0.86 K/mm3 (0.16-1.47); MONOCYTES PERCENT AUTO 18 % (4-13); Mean Corpuscular HGB 35.5 pg (26.0-34.0); Mean Corpuscular HGB Conc 35.9 g/dL (31.5-36.5); Mean Corpuscular Volume 99 fL (80-100); Mean Platelet Volume 10.5 fL (9.1-12.4); NEUTROPHILS ABSOLUTE AUTO 3.18 K/mm3 (1.96-9.15); NEUTROPHILS PERCENT AUTO 68 % (41-73); Platelet Count 70 K/mm3 (150-400); RDW Coefficient Variation 14.6 % (11.7-14.2); RDW Standard Deviation 53.8 fL (35.1-46.3); Red Blood Cell Count 2.11 M/mm3 (4.30-5.90)
[2023-04-15 06:04] LABS: Albumin, Blood 2.2 g/dL (3.4-5.0); Anion Gap 9 mmol/L (6-16); Blood Urea Nitrogen 73 mg/dL (8-24); Bun/Creatinine Ratio 20.9 (12.0-20.0); CO2, Blood 20 mmol/L (21-32); Calcium, Blood 8.2 mg/dL (8.5-10.1); Chloride, Blood 100 mmol/L (98-108); Glomerular Filtration Rate 19 (60-); Glucose, Blood 98 mg/dL (70-99); Phosphorus, Blood 4.6 mg/dL (2.5-4.9); Potassium, Blood 4.2 mmol/L (3.5-5.5); Sodium, Blood 129 mmol/L (136-145)
[2023-04-15 07:12] VITALS: BP 112/62
--- NOTE | 2023-04-15 09:09 | NUR ---
MD ORDER DR GARCIA GAVE VERBAL ORDER FOR BUMEX 2MG IV X 1. READ BACK DONE AND ORDER ENTERED INTO Vertra.
--- NOTE | 2023-04-15 10:17 | NUR ---
MD CALL BLADDER SCAN 480CC. UP TO BATHROOM AND HAD BM, ONLY VOIDED ~20CC. DR GARCIA CALLED AND NOTIFIED - HE SAID TO GIVE HIM MORE TIME TO VOID AND GIVE ANOTHER 2MG BUMEX IV AT NOON. READ BACK DONE.
[2023-04-15 13:29] VITALS: BP 123/70
[2023-04-15 15:30] VITALS: BP 102/65
--- NOTE | 2023-04-15 15:44 | NUR ---
SHIFT SUMMARY MR NGUYEN HAS HAD NO C/O PAIN TODAY. HE HAS AMBULATED IN THE HALLS WITH STEADY GAIT. HE HAD SOME DIFFICULTY URINATING THIS AM, BLADDER SCAN WAS 480 AND HE HAD A BM BUT ONLY VOIDED ~20CC. GIVEN 2ND IV BUMEX AND VOIDED 450CC DARK YELLOW URINE. SUPPORTIVE PARTNER VISITING WITH HIM TODAY. IVF CONTINUE. GOOD PO INTAKE. ORIENTATED EXCEPT TO DATE/YEAR AND ANSWERING QUESTIONS WELL. BED LOW, CALL LIGHT IN REACH.
[2023-04-15 19:47] VITALS: BP 122/66
[2023-04-16 02:34] VITALS: BP 125/73
[2023-04-16 05:51] LABS: Hematocrit 21.1 % (37.0-53.0); Hemoglobin 7.2 g/dL (13.5-17.5)
[2023-04-16 06:17] LABS: Albumin, Blood 2.1 g/dL (3.4-5.0); Anion Gap 9 mmol/L (6-16); Blood Urea Nitrogen 74 mg/dL (8-24); Bun/Creatinine Ratio 21.6 (12.0-20.0); CO2, Blood 19 mmol/L (21-32); Calcium, Blood 7.9 mg/dL (8.5-10.1); Chloride, Blood 101 mmol/L (98-108); Creatinine, Blood 3.42 mg/dL (0.60-1.20); Glomerular Filtration Rate 20 (60-); Glucose, Blood 94 mg/dL (70-99); Magnesium, Blood 1.8 mg/dL (1.6-2.4); Phosphorus, Blood 5.3 mg/dL (2.5-4.9); Potassium, Blood 3.9 mmol/L (3.5-5.5); Sodium, Blood 129 mmol/L (136-145)
[2023-04-16 07:33] VITALS: BP 117/71
[2023-04-16] MEDS ORDERED: MIDO5 PO (11:46)
[2023-04-16 13:31] VITALS: BP 129/75
--- NOTE | 2023-04-16 14:21 | NUR ---
DISCHARGE NOTE MR NGUYEN IS ALERT, ABLE TO ANSWER ALL ORIENTATION QUESTIONS BUT IS FORGETFUL. DENIED PAIN. DISCHARGED HOME AT 1415HRS. PT AND DEB HIS PARTNER VOICED UNDERSTANDING OF WRITTEN AND VERBAL DISCHARGE INSTRUCTIONS. PIV REMOVED INTACT PRIOR TO D/C.
== END 2023-04-16 14:33 | disposition home or self-care (01) | DRG 441 ==
LOC: ER 21:21 → ERHOLD 04-11 01:08 → MEDS 04-11 01:08 → PCU 04-11 02:06 → ICUE 04-11 03:00 → MEDS 04-12 18:13 → ENPENDDIS 04-16 11:27 → MEDS 04-16 14:33
PROVIDERS: Emergency Medicine; Family Medicine; Internal Medicine Nephrology; Student in an Organized Health Care Education/Training Program; ADMIT Internal Medicine
PROC: 4A033R1 Measurement of Arterial Saturation, Peripheral, Percutaneous Approach (ICD-10-PCS; 2023-04-11)
PROC: 3E033XZ Introduction of Vasopressor into Peripheral Vein, Percutaneous Approach (ICD-10-PCS; 2023-04-11)
PROC: 0W9G3ZZ Drainage of Peritoneal Cavity, Percutaneous Approach (ICD-10-PCS; principal; 2023-04-12)
DX: K76.82 Hepatic encephalopathy (principal); G92.8 Other toxic encephalopathy; N17.9 Acute kidney failure, unspecified; N18.4 Chronic kidney disease, stage 4 (severe); E87.1 Hypo-osmolality and hyponatremia; E87.4 Mixed disorder of acid-base balance; D61.818 Other pancytopenia; Z51.5 Encounter for palliative care; E87.6 Hypokalemia; D63.1 Anemia in chronic kidney disease; N40.1 Benign prostatic hyperplasia with lower urinary tract symptoms; R33.8 Other retention of urine; E88.09 Other disorders of plasma-protein metabolism, not elsewhere classified; K70.31 Alcoholic cirrhosis of liver with ascites; I48.91 Unspecified atrial fibrillation; I95.9 Hypotension, unspecified; R16.1 Splenomegaly, not elsewhere classified; K31.9 Disease of stomach and duodenum, unspecified; E86.9 Volume depletion, unspecified; E87.5 Hyperkalemia; H57.812 Brow ptosis, left; E87.70 Fluid overload, unspecified; E83.39 Other disorders of phosphorus metabolism; Z98.890 Other specified postprocedural states; Z79.899 Other long term (current) drug therapy; Z87.891 Personal history of nicotine dependence
CPT/HCPCS: 36415; 36569; 36600; 49083; 51701; 70450; 76705; 76770; 80053; 80069; 81001; 81003; 82140; 82607; 82728; 82746; 82803; 82947; 83540; 83550; 83690; 83735; 84100; 84300; 85014; 85018; 85025; 85610; 85730; 87086; 96360; 96361; 97110; 97116; 97162; 97166; 97530; 99285-25; A9270; C1751; C9113; J0696; J0881; J2405; J3010; J7030; J7060; J7070; P9047

== ENCOUNTER 2023-04-21 08:25 | Day surgery (SDC) | payer OTHER ==
[~2023-04-21 08:25] MED LIST changes: +MIDO5 PO
[2023-04-21 10:34] VITALS: BP 104/54
--- NOTE | 2023-04-21 11:26 | NUR ---
UPDATE/DISCHARGE PT TO INERNAL WAITING POST PARA. VSS POST PROCEDURE BEFORE TRANSFUSION. IV PLACED IN L AC. PHARMACY NOTIFIED OF 6.5 L REMOVED. ALBUMIN TRANSFUSION STARTED. PT MCKAYLA WELL. IV REMOVED. SITE WNL. PT TO LOBBY AT 1125.
[2023-04-21] MEDS ORDERED: MIRALAX11914 PO (13:57)
[2023-04-21] MEDS ORDERED: BUMETANIDE2 M6 PO (13:58)
[2023-04-22] MEDS ORDERED: SPIR25 PO (09:26)
[2023-04-22] MEDS ORDERED: Xifaxan200 MG PO (09:28)
[2023-04-22] MEDS ORDERED: OMEP20ER PO (09:29)
== END 2023-04-23 22:52 | disposition home or self-care (01) ==
LOC: US 08:25
DX: K70.31 Alcoholic cirrhosis of liver with ascites (principal)
CPT/HCPCS: 49083; P9047

== ENCOUNTER 2023-04-22 02:53 | Inpatient (IN) | payer OTHER ==
[~2023-04-22] VITALS: Ht 172.7 cm; Wt 100.8 kg
[~2023-04-22 02:53] MED LIST changes: +BUMETANIDE2 M6 PO; +MIRALAX11914 PO
[2023-04-22 03:33] LABS: BASOPHILS ABSOLUTE AUTO 0.01 K/mm3 (0.00-0.23); BASOPHILS PERCENT AUTO 0 % (0-2); EOSINOPHILS ABSOLUTE AUTO 0.05 K/mm3 (0.00-0.68); EOSINOPHILS PERCENT AUTO 1 % (0-6); Hematocrit 24.4 % (37.0-53.0); Hemoglobin 8.5 g/dL (13.5-17.5); IMMATURE GRAN ABSOLUTE AUTO 0.02 K/mm3 (0.00-0.10); IMMATURE GRAN PERCENT AUTO 0 % (0-1); LYMPHOCYTES ABSOLUTE AUTO 0.42 K/mm3 (0.84-5.20); LYMPHOCYTES PERCENT AUTO 6 % (21-46); MONOCYTES ABSOLUTE AUTO 0.47 K/mm3 (0.16-1.47); MONOCYTES PERCENT AUTO 7 % (4-13); Mean Corpuscular HGB 35.1 pg (26.0-34.0); Mean Corpuscular HGB Conc 34.8 g/dL (31.5-36.5); Mean Corpuscular Volume 101 fL (80-100); Mean Platelet Volume 9.5 fL (9.1-12.4); NEUTROPHILS ABSOLUTE AUTO 6.26 K/mm3 (1.96-9.15); NEUTROPHILS PERCENT AUTO 87 % (41-73); Platelet Count 133 K/mm3 (150-400); RDW Coefficient Variation 15.9 % (11.7-14.2); Red Blood Cell Count 2.42 M/mm3 (4.30-5.90); White Blood Cell Count 7.23 K/mm3 (4.00-11.30)
[2023-04-22 03:51] LABS: International Normalized Ratio 1.69; Prothrombin Time Results 17.2 Sec (9.7-11.5)
[2023-04-22 03:53] LABS: Albumin, Blood 2.7 g/dL (3.4-5.0); Albumin/Globulin Ratio 0.8 (0.8-1.8); Bilirubin, Total 3.2 mg/dL (0.1-1.0); Bun/Creatinine Ratio 21.4 (12.0-20.0); Calcium, Blood 8.7 mg/dL (8.5-10.1); Creatinine, Blood 4.44 mg/dL (0.60-1.20); Globulin, Blood 3.5 g/dL (2.2-4.0); Potassium, Blood 3.4 mmol/L (3.5-5.5); Total Protein, Blood 6.2 g/dL (6.4-8.2)
[2023-04-22 09:12] VITALS: BP 103/55
[2023-04-22] MEDS ORDERED: SPIR25 PO (09:26)
[2023-04-22] MEDS ORDERED: Xifaxan200 MG PO (09:28)
[2023-04-22] MEDS ORDERED: OMEP20ER PO (09:29)
[2023-04-22 11:25] LABS: Magnesium, Blood 2.1 mg/dL (1.6-2.4)
[2023-04-22 11:50] LABS: Albumin, Blood 2.9 g/dL (3.4-5.0); Anion Gap 17 mmol/L (6-16); Blood Urea Nitrogen 98 mg/dL (8-24); Bun/Creatinine Ratio 21.4 (12.0-20.0); CO2, Blood 16 mmol/L (21-32); Calcium, Blood 8.9 mg/dL (8.5-10.1); Chloride, Blood 101 mmol/L (98-108); Creatinine, Blood 4.58 mg/dL (0.60-1.20); Glomerular Filtration Rate 14 (60-); Glucose, Blood 107 mg/dL (70-99); Phosphorus, Blood 8.2 mg/dL (2.5-4.9); Potassium, Blood 3.8 mmol/L (3.5-5.5); Sodium, Blood 134 mmol/L (136-145)
--- NOTE | 2023-04-22 13:09 | NUR ---
PT ARRIVED TO PCU AT 0912 VIA GURNEY AND ON RA. PT SLID FROM [facility] TO PCU BED VIA SLIDE SHEET AND 4 TAFF MEMBERS. PT ENDORSED ABDOMINAL PAIN AT TIME OF ARRIVAL. PT ALSO ENDORSED NAUSEA. PRESENT AT TIME OF ARRIVAL AND SIGNED BLOOD CONSENT AND INFORMATION RELEASE FORMS. PT ARRIVED TO UNIT WITH LOUISE IN PLACE, DRAINING TO GRAVITY, YELLOW URINE. NO REPORT OF SOB OR CHEST PAIN/PRESSURE AT TIME OF ARRIVAL. PT ABDOMEN DISTENDED AND PAINFUL TO PALPATIONS. DR GUEVARA TO ROUND ON PT, LACTULOSE ENEMA HELD PER PRDERS. NG TUBE PLACED BY TURN DOWN ATTENDANT WITH BLOCK CABLEMAN AND THIS RN PRESENT PER DR GUEVARA ORDER WITHSLOW CONTINUOUS SUCTION.
[2023-04-22 13:40] VITALS: BP 122/80
[2023-04-22 16:08] VITALS: BP 113/63
--- NOTE | 2023-04-22 17:41 | NUR ---
SHIFT SUMMARY PT AOX4 AND COOPERTIVE OF CARE. VSS SINCE ARRIVAL TO UNIT. NG TUBE PLACED BY MEDICAL REPRESENTATIVE WITH ASSISTANCE PER DR GUEVARA ORDER. DR GUEVARA ABLE TO RETRACT HERNIA BACK INTO THE ABDOMINAL CAVITY AT BEDSIDE. PT REPORTS PAIN RELIEF. NG TUBE REMAINED AT LOW SUCTION PER ORDER, NG CLAMPED FOR SWALLOWING ASSESSMENT. PT ABLE TO TOKE ORAL MED AND DRINK WATER WITH NO DIFFICULTY. NO NAUSEA REPORTED. D5W WITH BICARG RUNNING PER ORDER. NO REPORT OF SOB OR CHEST PAIN/PRESSURE SINCE ARRIVAL TO UNIT.
--- NOTE | 2023-04-22 18:23 | NUR ---
UPDATE DR GUEVARA CONTACTED THIS RN AT 1809. UPDATEED ON PT. DR INSTRUCTED THSI RN TO REMOVE THE NG TUBE. NG TUBE REMOVED AT 1814. PT TOLERATED WELL.
[2023-04-22 20:09] VITALS: BP 100/44
[2023-04-22 22:35] VITALS: BP 100/55
[2023-04-23] VITALS (9 sets, daily range): BP systolic 84–104; BP diastolic 48–71
[2023-04-23 04:09] LABS: Hematocrit 21.2 % (37.0-53.0); Hemoglobin 7.3 g/dL (13.5-17.5)
[2023-04-23 04:39] LABS: Magnesium, Blood 2.1 mg/dL (1.6-2.4)
[2023-04-23 05:06] LABS: Albumin, Blood 2.3 g/dL (3.4-5.0); Anion Gap 15 mmol/L (6-16); Blood Urea Nitrogen 101 mg/dL (8-24); Bun/Creatinine Ratio 20.9 (12.0-20.0); CO2, Blood 19 mmol/L (21-32); Chloride, Blood 101 mmol/L (98-108); Creatinine, Blood 4.83 mg/dL (0.60-1.20); Glomerular Filtration Rate 13 (60-); Glucose, Blood 93 mg/dL (70-99); Phosphorus, Blood 8.2 mg/dL (2.5-4.9); Potassium, Blood 3.6 mmol/L (3.5-5.5); Sodium, Blood 135 mmol/L (136-145)
--- NOTE | 2023-04-23 07:01 | NUR ---
SHIFT SUMMARY PT REMAINS A&O X4, SPO2 >95% ON RA, MIDODRINE GIVEN X2 PRN HYPOTENSION, PT REMAINS ASYMPTOMATIC, CRITICAL PHOS OF 8.2 REPORTED TO THIS AM, NO NEW ORDERS GIVEN AT THIS TIME, IN THE ROOM TO ASSESS PT @ 0700. NEW ORDERS GIVEN TO DAY RN, CALL LIGHT IN REACH.
--- NOTE | 2023-04-23 09:14 | NUR ---
AM NOTE ASSUMED CARE OF THIS PT. PT IS ALERT AND ORIENTATED TO PERSON, PLACE, TIME, AND SITUATION. PT'S VITAL SIGNS REMAIN STABLE. LUNG SOUNDS ARE CLEAR TO ALL LUNG DOYLE. DENIES SHORTNESS OF BREATH, CHEST PAIN, NAUSEA, ABDOMINAL PAIN, OR DIZZINESS. COMPLAINS OF CONSTIPATION, WILL CONTACT PROVIDER REGARDING EMAR. AWAITING REEVALUATION.
--- NOTE | 2023-04-23 17:34 | NUR ---
SHIFT SUMMARY PT HAS REMAINED ALERT AND ORIENTATED THROUGHOUT THE SHIFT. B/P HAS REMAINED SOFT, MEDICATED WITH PRN MIDODRINE PER EMAR. PT RESUMED ON FULL LIQUID DIET AND PO MEDICATIONS. PT HAS NOT HAD A BOWEL MOVEMENT THIS SHIFT. NEPHROLOGY ALERTED FOR INCRESING CREATANINE LEVELS. FURTHER CONSULTATION FOR POSSIBLE PERMACATH PLACEMENT IN THE AM.
--- NOTE | 2023-04-23 17:50 | NUR ---
I have reviewed the clinical nursing assistant documentation and am in agreement
[2023-04-24] VITALS (7 sets, daily range): BP systolic 94–106; BP diastolic 47–57
[2023-04-24 03:58] LABS: Hematocrit 20.3 % (37.0-53.0); Hemoglobin 7.3 g/dL (13.5-17.5)
[2023-04-24 04:19] LABS: Albumin, Blood 2.2 g/dL (3.4-5.0); Anion Gap 14 mmol/L (6-16); Blood Urea Nitrogen 99 mg/dL (8-24); Bun/Creatinine Ratio 20.7 (12.0-20.0); CO2, Blood 20 mmol/L (21-32); Calcium, Blood 7.7 mg/dL (8.5-10.1); Chloride, Blood 100 mmol/L (98-108); Creatinine, Blood 4.79 mg/dL (0.60-1.20); Glomerular Filtration Rate 13 (60-); Glucose, Blood 102 mg/dL (70-99); Phosphorus, Blood 7.6 mg/dL (2.5-4.9); Potassium, Blood 3.1 mmol/L (3.5-5.5); Sodium, Blood 134 mmol/L (136-145)
--- NOTE | 2023-04-24 05:05 | NUR ---
SHIFT SUMMARY PT IS A/Ox4 AND COOPERATIVE WITH CARE PROVIDED BY MEMBERS OF STAFF. ANSWERS QUESTIONS APPROPRIATELY AND ABLE TO MAKE HIS NEEDS KNOWN. NO ACUTE EVENTS OVERNIGHT FOR PT WAS ABLE TO SLEEP T/O MOST OF THE SHIFT. CARDIAC NGUYEN, REMAINS IN SR 70-90'S WITH NO C/O CP OR PRESSURE T/O THE NIGHT. SBP HAS BEEN SOFT, BUT PRN MIDODRINE IS ON BOARD. RESPIRATORY NGUYEN, REMAINS ON RA WITH NO C/O SOB OR DYSPNEA REPORTED. ABD BINDING ON WELL D5 W/BICARB RUNNING T/O THE NIGHT ORDERD VIA EMAR. ABLE TO WALK TO BATHROOM WITH MINIMAL ASSISTANCE FROM STAFF. LOUISE CATH IN PLACE, PATENT, AND DRAINING YELLOW URINE TO GRAVITY. PAIN HAS BEEN WELL CONTROLLED ORDERED VIA EMAR. PT HAS BEEN NPO SINCE MDN IN CASE OF PERMA CATH PLACEMENT THIS AM. DAYSHIFT TO FOLLOW UP WITH JOHN FOR PROCEDURE PER REPORT. NO NEW ORDERS AT THIS TIME, WILL REPORT TO ONCOMING RN. OSMANY ALFONSO OF THIS NOTE.
--- NOTE | 2023-04-24 09:39 | NUR ---
AM NOTE PT IS ALERT AND ORIENTATED TO PERSON, PLACE, TIME AND SITUATION. PT'S VITAL SIGNS REMAIN STABLE, BLOOD PRESSURE REMAINS SOFT. PT DENIES CHEST PAIN, SHORTNESS OF BREATH, WORSENING ABDOMINAL TENDERNESS, NAUSEA OR VOMITTING. AWAITING CONSULTATION BY INTERVENTIONAL RADIOLOGY FOR POSSIBLE PERMACATH PLACEMENT. WILL CONTINUE TO MONITOR PT.
--- NOTE | 2023-04-24 16:09 | NUR ---
SHIFT SUMMARY PT HAS REMAINED ALERT AND ORIENTATED THROUGHOUT THE SHIFT. VITAL SIGNS HAVE BEEN STABLE. MAP >65 WITH MIDODRINE. PT DENIES CHEST PAIN, SHORTNESS OF BREATH, WORSENING ABDOMINAL PAIN, NAUSEA, OR DIZZINESS. PT HAS BEEN AMBULATING THROUGHOUT THE SHIFT TO THE BATHROOM WITH MULTIPLE BOWEL MOVEMENTS. CONSULTATION FOR INTERVENTIONAL RADIOOLOGY REGARDING PERMACATH PLACEMENT IN THE AM PER DR. GARCIA. WILL REPORT OFF TO ONCOMING RN.
--- NOTE | 2023-04-24 18:00 | NUR ---
I have reviewed the nursing assistant documentation and am in agreement.
[2023-04-25] VITALS (13 sets, daily range): BP systolic 72–129; BP diastolic 46–67
--- NOTE | 2023-04-25 04:45 | NUR ---
SHIFT SUMMARY PT IS A/Ox4 AND COOPERATIVE WITH CARE PROVIDED BY MEMBERS OF STAFF. ANSWERS QUESTIONS APPROPRIATELY AND ABLE TO MAKE HIS NEEDS KNOWN. NO ACUTE EVENTS OVERNIGHT FOR PT WAS ABLE TO SLEEP T/O MOST OF THE SHIFT. CARDIAC NGUYEN, REMAINS IN SR 70-90'S WITH NO C/O CP OR PRESSURE T/O THE NIGHT. BP'S CONTINUE TO BE SOFT, RESPONDS WELL TP PRN MIDODRINE. RESPIRATORY, MAINTAINS SPO2 >95% ON RA WITH NO C/O SOB OR DYSPNEA. ABLE TO ABULATE TO BATHROOM WITH SBA. LOUISE CATH IN PLACE, PATENT AND DRAINING YELLOW URINE TO GRAVITY. ABD BINDING REMAINS IN PLACE, PAIN HAS BEEN ADEQUATELY MANAGED ORDERED VIA EMAR. IR CONSULT WITH Aamir THIS AM FOR POSSIBLE PLACEMENT OF PERMACATH FOR DIALYSIS. NO NEW ORDERS AT THIS TIME, WILL REPORT TO ONCOMING RN. OSMANY ALFONSO OF THIS NOTE.
[2023-04-25 06:18] LABS: Albumin, Blood 2.2 g/dL (3.4-5.0); Anion Gap 12 mmol/L (6-16); Blood Urea Nitrogen 102 mg/dL (8-24); Bun/Creatinine Ratio 20.5 (12.0-20.0); CO2, Blood 24 mmol/L (21-32); Calcium, Blood 7.6 mg/dL (8.5-10.1); Chloride, Blood 98 mmol/L (98-108); Creatinine, Blood 4.97 mg/dL (0.60-1.20); Glomerular Filtration Rate 13 (60-); Glucose, Blood 97 mg/dL (70-99); Magnesium, Blood 1.6 mg/dL (1.6-2.4); Phosphorus, Blood 6.4 mg/dL (2.5-4.9); Potassium, Blood 2.9 mmol/L (3.5-5.5); Sodium, Blood 134 mmol/L (136-145)
--- NOTE | 2023-04-25 09:09 | NUR ---
AM NOTE PT IS ALERT AND ORIENTATED TO PERSON, PLACE, TIME AND SITUATION. PT'S VITAL SIGNS REMAIN STABLE. BP IS SOFT, BUT STABLE, MEDICATED WITH PRN MIDODRINE ORDERED. PT DENIES CHEST PAIN, SHORTNESS OF BREATH, WORSENING ABDOMINAL PAIN, NAUSEA, OR DIZZINESS. MAINTAINING SPO2 >95% ON RA. ABDOMINAL BINDER IN PLACE ORDERED. AWAITING INTERVENTIONAL RADIOLOGY CONSULTATION. WILL CONTINUE TO MONITOR PT.
--- NOTE | 2023-04-25 16:31 | NUR ---
SHIFT SUMMARY PT HAS REMAINED ALERT AND ORIENTATED AND VITAL SIGNS HAVE BEEN STABLE. B/P HAS BEEN SOFT MEDICATED WITH PRN MIDODRINE. PT DENIES ANY ACUTE CHANGES THROUGHOUT THE SHIFT. PT HAD PERMACATH PLACED IN ELECTRIC MELT OPERATOR TODAY. PT WILL NOT RECIEVE DIALYSIS TONIGHT, BUT WILL RECIEVE DIALYSIS IN THE AM. LOUISE CATHETER D/Cd PER DR GARCIA. BUMEX AND ALBUMIN ORDERED, BECAUSE OF NOT RECIEVING DIALYSIS. PT DENIES ANY FURTHER NEEDS AT THIS TIME. WILL REPORT OFF TO ONCOMING RN.
--- NOTE | 2023-04-25 18:21 | NUR ---
I have reviewed the nursing students documentation and am in agreement.
[2023-04-26] VITALS (16 sets, daily range): BP systolic 90–121; BP diastolic 46–64
[2023-04-26 03:39] LABS: Hematocrit 22.1 % (37.0-53.0); Hemoglobin 7.5 g/dL (13.5-17.5)
[2023-04-26 04:00] LABS: Albumin, Blood 2.5 g/dL (3.4-5.0); Anion Gap 14 mmol/L (6-16); Blood Urea Nitrogen 101 mg/dL (8-24); Bun/Creatinine Ratio 20.4 (12.0-20.0); CO2, Blood 22 mmol/L (21-32); Calcium, Blood 7.8 mg/dL (8.5-10.1); Chloride, Blood 100 mmol/L (98-108); Creatinine, Blood 4.95 mg/dL (0.60-1.20); Glomerular Filtration Rate 13 (60-); Glucose, Blood 127 mg/dL (70-99); Magnesium, Blood 1.9 mg/dL (1.6-2.4); Phosphorus, Blood 7.3 mg/dL (2.5-4.9); Sodium, Blood 136 mmol/L (136-145)
--- NOTE | 2023-04-26 04:17 | NUR ---
SHIFT SUMMARY PT REMAINS A/Ox4 AND COOPERATIVE WITH CARE PROVIDED BY MEMBERS OF STAFF. ANSWERS QUESTIONS APPROPRIATELY AND ABLE TO MAKE HIS NEEDS KNOWN. NO ACUTE EVENTS OVERNIGHT FOR PT WAS ABLE TO GET INTERMITTENT SPELLS OF SLEEP. CARDIAC NGUYEN, REMAINS IN SR 70-90'S WITH NO C/O CP OR PRESSURE REPORTED. BP HAS BEEN SOFT, BUT PT RESPONDS WELL TO PRN MIDODRINE. NO C/O DIZZYNESS OR WEAKNESS WHEN PRESSURES ARE SOFT. RESPIRATORY NGUYEN, REMAINS ON RA WITH NO REPORTS OF SOB OR DYSPNEA, EVEN WITH ABULATION. ABLE TO ABULATE TO THE BATHROOM W/O ASSISTANCE FROM MEMBERS OF STAFF. LOUISE CATH WAS DC'D YESTERDAY ON DAYSHIFT, PT HAS SINCE VOIDED T/O THE NIGHT W/O ISSUE. HD CATH PLACED YESTERDAY BY DR. Rutledge. SITE WNL WITH ONLY REPORTS OF MINOR TENDERNESS. PT SCHEDULED FOR HD THIS AM. NO NEW ORDERS AT THIS TIME, WILL REPORT TO ONCOMING RN. OSMANY ALFONSO OF THIS NOTE.
[2023-04-26 07:12] LABS: HEP B CORE AB, TOT Negative (Negative); HEP B SURFACE AB Non Reactive (.)
--- NOTE | 2023-04-26 17:30 | NUR ---
SHIFT SUMMARY; ASSUMED CARE AT 0700. A/A/OX4 DURING SHIFT. PERMACATH SITE TO RIGHT CHEST AREA DRY WITHOUT SWELLING, DRESSING INTACT. ABD BINDER IN PLACE, REPORTS COMFORT FROM WEARING AFTER HERNIA WAS REDUCED. DIAYLISIS COMPELTED TODAY, TOLERATED WELL. AMBULATES IN ROOM WITH SBA. PLEASANT AND COOPERATIVE WITH CARE. NO ACUTE MEDICAL CHANGES, WILL CONTINUE TO MONITOR AND TREAT UNTIL CHANGE OF SHIFT.
[2023-04-27] VITALS (16 sets, daily range): BP systolic 80–117; BP diastolic 46–73
[2023-04-27 04:14] LABS: Hematocrit 20.3 % (37.0-53.0); Hemoglobin 7.1 g/dL (13.5-17.5)
[2023-04-27 04:41] LABS: Albumin, Blood 2.2 g/dL (3.4-5.0); Anion Gap 10 mmol/L (6-16); Blood Urea Nitrogen 74 mg/dL (8-24); Bun/Creatinine Ratio 17.9 (12.0-20.0); CO2, Blood 26 mmol/L (21-32); Calcium, Blood 7.7 mg/dL (8.5-10.1); Chloride, Blood 100 mmol/L (98-108); Creatinine, Blood 4.13 mg/dL (0.60-1.20); Glomerular Filtration Rate 16 (60-); Glucose, Blood 99 mg/dL (70-99); Magnesium, Blood 1.7 mg/dL (1.6-2.4); Phosphorus, Blood 5.3 mg/dL (2.5-4.9); Potassium, Blood 3.2 mmol/L (3.5-5.5); Sodium, Blood 136 mmol/L (136-145)
--- NOTE | 2023-04-27 05:47 | NUR ---
SHIFT SUMMARY ASSUMED CARE OF PT AT 1900. PT IS A/OX4. HEART SOUNDS REGULAR. LUNG SOUNDS CLEAR. PT ABD IS SWOLLEN AND TENDER. PT USED HEATING PAD FOR RELIEF. PT REPORTS UMBILICAL AND INGUINAL HERNIA. PT WAS INDEPENDENT TO BATHROOM. PT SKIN IS JAUNDICED. PT STATES THAT HE HIPES TO GO HOME THIS MORNING. PERMACATH SITE HAS MINIMAL DRAINAGE AND BRUSING AROUND SITE.
[2023-04-27 07:10] LABS: HBSAG SCREEN Negative (Negative)
--- NOTE | 2023-04-27 09:00 | NUR ---
UPDATE PT TO DIALYSIS THIS AM AT 0810. ONLY [facility] WAS PHOSLOG[facility] CAP D/T DIALYSIS.
--- NOTE | 2023-04-27 13:27 | NUR ---
UPDATE SPOKE WITH MD REGARDING HGB. STABLE, NO FURTHER ORDERS.
[2023-04-27] MEDS ORDERED: Calcium Acetat667 MG PO (13:39)
[2023-04-27] MEDS ORDERED: FURO80 PO (13:40)
--- NOTE | 2023-04-27 14:20 | NUR ---
PT DISCHARGE PT PROVIDED WITH DISCHARGE INSTRUCTIONS AND OUTPATIENT APPOINTMENTS. PT PROVIDED WITH EDUCATION REGARDING HEMODYALYSIS AND RENAL DIET. MEDS FAXED TO PT'S PREFERRED PHARMACY. VSS. PT BROUGHT TO PRIVATE VEHICLE BY WHEELCHAIR WITH ALL BELONGINGS BY THIS RN AND ROOMATE.
[2023-04-28 10:37] LABS: HBV IU/ML HBV DNA not detected IU/mL (.)
== END 2023-04-27 14:38 | disposition home or self-care (01) | DRG 674 ==
LOC: ER 02:53 → PCU 07:33
PROVIDERS: Emergency Medicine; Internal Medicine Nephrology; ADMIT Internal Medicine
PROC: 5A1D70Z Performance of Urinary Filtration, Intermittent, Less than 6 Hours Per Day (ICD-10-PCS; principal; 2023-04-22)
PROC: 0D9670Z Drainage of Stomach with Drainage Device, Via Natural or Artificial Opening (ICD-10-PCS; 2023-04-22)
PROC: 0JH63XZ Insertion of Tunneled Vascular Access Device into Chest Subcutaneous Tissue and Fascia, Percutaneous Approach (ICD-10-PCS; 2023-04-26)
PROC: 0T9B70Z Drainage of Bladder with Drainage Device, Via Natural or Artificial Opening (ICD-10-PCS; 2023-04-26)
PROC: 02HV33Z Insertion of Infusion Device into Superior Vena Cava, Percutaneous Approach (ICD-10-PCS; 2023-04-26)
PROC: B518ZZA Fluoroscopy of Superior Vena Cava, Guidance (ICD-10-PCS; 2023-04-26)
PROC: B548ZZA Ultrasonography of Superior Vena Cava, Guidance (ICD-10-PCS; 2023-04-26)
DX: N17.9 Acute kidney failure, unspecified (principal); E87.1 Hypo-osmolality and hyponatremia; K42.0 Umbilical hernia with obstruction, without gangrene; E87.20 Acidosis, unspecified; N18.6 End stage renal disease; Z91.148 Patient's other noncompliance with medication regimen for other reason; K76.82 Hepatic encephalopathy; E88.09 Other disorders of plasma-protein metabolism, not elsewhere classified; K70.31 Alcoholic cirrhosis of liver with ascites; E83.39 Other disorders of phosphorus metabolism; E87.6 Hypokalemia; N25.81 Secondary hyperparathyroidism of renal origin; N40.1 Benign prostatic hyperplasia with lower urinary tract symptoms; R33.8 Other retention of urine; D63.1 Anemia in chronic kidney disease; D69.6 Thrombocytopenia, unspecified; F10.20 Alcohol dependence, uncomplicated; Z87.891 Personal history of nicotine dependence; Z98.890 Other specified postprocedural states; Z79.899 Other long term (current) drug therapy
CPT/HCPCS: 36415; 36558; 71046; 74176; 76937; 77001; 80053; 80069; 82140; 82565; 83735; 85014; 85018; 85025; 85610; 86704; 87340; 87517; 93005; 93010; 96365; 96367; 96375; 99152; 99153; 99285-25; A9270; C1750; C1769; C1894; C9113; J0881; J1170; J1644; J2250; J2405; J3010; J3480; J7030; J7040; J7050; J7070; P9045

== ENCOUNTER → 2023-05-05 | Day surgery (SDC) | payer OTHER ==
[~2023-05-05] MED LIST changes: +Calcium Acetat667 MG PO; +FURO80 PO; +Xifaxan200 MG PO
== END ==
LOC: US 08:13
DX: K70.31 Alcoholic cirrhosis of liver with ascites (principal)
CPT/HCPCS: 49083

== ENCOUNTER 2023-05-12 08:24 | Day surgery (SDC) | payer OTHER | END 2023-05-12 22:57 | disposition home or self-care (01) | LOC: US 08:24 | DX: K70.31 Alcoholic cirrhosis of liver with ascites (principal) | CPT/HCPCS: 49083 ==

== ENCOUNTER 2023-05-31 16:32 | Inpatient (IN) | payer OTHER ==
[~2023-05-31] VITALS: Ht 172.7 cm; Wt 92.2 kg
[2023-05-31 17:27] LABS: BASOPHILS ABSOLUTE AUTO 0.02 K/mm3 (0.00-0.23); BASOPHILS PERCENT AUTO 0 % (0-2); EOSINOPHILS ABSOLUTE AUTO 0.12 K/mm3 (0.00-0.68); EOSINOPHILS PERCENT AUTO 1 % (0-6); Hematocrit 25.4 % (37.0-53.0); Hemoglobin 8.5 g/dL (13.5-17.5); IMMATURE GRAN ABSOLUTE AUTO 0.07 K/mm3 (0.00-0.10); IMMATURE GRAN PERCENT AUTO 1 % (0-1); LYMPHOCYTES ABSOLUTE AUTO 0.91 K/mm3 (0.84-5.20); LYMPHOCYTES PERCENT AUTO 8 % (21-46); MONOCYTES ABSOLUTE AUTO 0.88 K/mm3 (0.16-1.47); MONOCYTES PERCENT AUTO 8 % (4-13); Mean Corpuscular HGB 35.7 pg (26.0-34.0); Mean Corpuscular HGB Conc 33.5 g/dL (31.5-36.5); Mean Corpuscular Volume 107 fL (80-100); Mean Platelet Volume 12.1 fL (9.1-12.4); NEUTROPHILS ABSOLUTE AUTO 9.18 K/mm3 (1.96-9.15); NEUTROPHILS PERCENT AUTO 82 % (41-73); Platelet Count 53 K/mm3 (150-400); RDW Coefficient Variation 16.8 % (11.7-14.2); RDW Standard Deviation 64.9 fL (35.1-46.3); Red Blood Cell Count 2.38 M/mm3 (4.30-5.90); White Blood Cell Count 11.18 K/mm3 (4.00-11.30)
[2023-05-31 17:50] LABS: Albumin, Blood 1.9 g/dL (3.4-5.0); Albumin/Globulin Ratio 0.4 (0.8-1.8); Bun/Creatinine Ratio 6.6 (12.0-20.0); Calcium, Blood 8.3 mg/dL (8.5-10.1); Creatinine, Blood 6.79 mg/dL (0.60-1.20); Globulin, Blood 5.3 g/dL (2.2-4.0); Magnesium, Blood 2.4 mg/dL (1.6-2.4); Phosphorus, Blood 4.8 mg/dL (2.5-4.9); Potassium, Blood 3.7 mmol/L (3.5-5.5); Total Protein, Blood 7.2 g/dL (6.4-8.2)
[2023-05-31 19:37] LABS: International Normalized Ratio 1.66; Prothrombin Time Results 16.9 Sec (9.7-11.5)
[2023-05-31 22:42] LABS: Influenza A, PCR NEGATIVE (NEGATIVE); Influenza B, PCR NEGATIVE (NEGATIVE); Resp Syncytial Virus, PCR NEGATIVE (NEGATIVE); SARS-Cov-2 (COVID-19) PCR, MMC NEGATIVE (NEGATIVE)
[2023-06-01] VITALS (19 sets, daily range): BP systolic 78–108; BP diastolic 50–66
[2023-06-01] MEDS ORDERED: SODBIC650 PO (02:05)
[2023-06-01] MEDS ORDERED: BUMETANIDE2 M6 PO (02:07)
[2023-06-01] MEDS ORDERED: GABA100 PO (02:08)
[2023-06-01] MEDS ORDERED: MIDO5 PO (02:11)
[2023-06-01] MEDS ORDERED: VITAMIN D325 MC3 PO (02:13)
[2023-06-01] MEDS ORDERED: BIOTIN5 MG PO (02:14)
[2023-06-01] MEDS ORDERED: CONSTULOSE10 GM/155 PO (02:16)
--- NOTE | 2023-06-01 02:56 | NUR ---
TRANSFER NOTE THIS RN RECEIVED REPORT FROM EVER BOTELLO IN THE ED VIA PHONE. PT TRANSFERRED TO PCU. PT ABLE TO AMBULATE FROM GURNEY TO BED. SLIGHT WEAKNESS NOTED; REPORTED OCCASIONAL PROBLEMS WITH ORTHOSTATIC HYPOTENSION AT HOME; DENIED DIZZINESS AT THIS TIME. BP STABLE WITH MAP >65. SPO2 >92% ON RA. SR/ST ON MONITOR WITH HR 80-100'S. DENIES CHEST PAIN/PRESSURE AND SOB. NO RESPIRATORY DISTRESS NOTED. AFEBRILE. PT WITH ABDOMINAL BINDER IN PLACE FOR UMBILICAL HERNIA; LEFT INGUINAL HERNIA NOTED WELL. HYPERACTIVE BS NOTED. DIMINISHED LEFT LS. PT NPO CURRENTLY. VERBALIZED UNDERSTANDING. PT ALERT AND ORIENTED TO SELF, FAMILY, SITUATION AND PLACE. PT UNSURE OF DATE, BUT SIGNIFICANT OTHER STATES THIS IS HIS BASELINE. PERMCATH DRESSING ON RIGHT CHEST WALL C/D/I. PT CALM AND COOPERATIVE WITH CARE AT THIS TIME. BED ALARM ON FOR SAFETY. BED IN LOWEST POSITION AND CALL LIGHT WITHIN REACH.
[2023-06-01 03:55] LABS: BASOPHILS ABSOLUTE AUTO 0.02 K/mm3 (0.00-0.23); BASOPHILS PERCENT AUTO 0 % (0-2); EOSINOPHILS ABSOLUTE AUTO 0.16 K/mm3 (0.00-0.68); EOSINOPHILS PERCENT AUTO 2 % (0-6); Hematocrit 21.9 % (37.0-53.0); Hemoglobin 7.7 g/dL (13.5-17.5); IMMATURE GRAN ABSOLUTE AUTO 0.03 K/mm3 (0.00-0.10); IMMATURE GRAN PERCENT AUTO 0 % (0-1); LYMPHOCYTES PERCENT AUTO 9 % (21-46); MONOCYTES ABSOLUTE AUTO 1.05 K/mm3 (0.16-1.47); MONOCYTES PERCENT AUTO 11 % (4-13); Mean Corpuscular HGB Conc 35.2 g/dL (31.5-36.5); Mean Platelet Volume 10.6 fL (9.1-12.4); NEUTROPHILS ABSOLUTE AUTO 7.54 K/mm3 (1.96-9.15); NEUTROPHILS PERCENT AUTO 78 % (41-73); Platelet Count 56 K/mm3 (150-400); RDW Coefficient Variation 16.4 % (11.7-14.2); RDW Standard Deviation 61.5 fL (35.1-46.3); Red Blood Cell Count 2.14 M/mm3 (4.30-5.90)
--- NOTE | 2023-06-01 04:53 | NUR ---
SHIFT SUMMARY NO ACUTE CHANGES SINCE ARRIVAL TO UNIT. NO CHANGES IN NEURO. SEE ASSESSMENT AND PREVIOUS NOTE. VITALS STABLE AT THIS TIME. MAP >65. DENIES PAIN. DENIES SOB. NO RESPIRATORY DISTRESS NOTED. PATIENT APPEARS TO BE RESTING AT THIS TIME WITH EQUAL CHEST RISE/FALL NOTED. BED IN LOWEST POSITION AND CALL LIGHT WITHIN REACH. BED ALARM ON. THIS RN WILL CONTINUE TO MONITOR UNTIL SHIFT CHANGE AT 0700
[2023-06-01 06:16] LABS: Albumin, Blood 1.7 g/dL (3.4-5.0); Albumin/Globulin Ratio 0.4 (0.8-1.8); Bilirubin, Total 2.8 mg/dL (0.1-1.0); Bun/Creatinine Ratio 6.8 (12.0-20.0); Calcium, Blood 8.4 mg/dL (8.5-10.1); Creatinine, Blood 7.46 mg/dL (0.60-1.20); Globulin, Blood 4.4 g/dL (2.2-4.0); Magnesium, Blood 2.3 mg/dL (1.6-2.4); Potassium, Blood 4.1 mmol/L (3.5-5.5); Total Protein, Blood 6.1 g/dL (6.4-8.2)
[2023-06-01 06:24] LABS: Mean Corpuscular Volume 102 fL (80-100)
--- NOTE | 2023-06-01 08:45 | NUR ---
PT GONE FOR THORACENTESIS.
--- NOTE | 2023-06-01 10:05 | NUR ---
GONE TO DIALYSIS.
[2023-06-01 10:21] LABS: Automated BF RBC Count 0.018 M/mm3 (0-0); Automated BF WBC Count 0.624 K/mm3 (0-999)
[2023-06-01 10:30] LABS: Body Fluid WBC Count 624 /mm3 (0-999); RBC Count, Body Fluid 18000 /mm3 (0-0)
[2023-06-01 10:34] LABS: Lactate Dehydrogenase, Body Fl 131 U/L
[2023-06-01 10:37] LABS: Protein, Body Fluid 1.5 g/dL
[2023-06-01 11:09] LABS: Total Cell Count, Body Fluid 100
[2023-06-01 11:11] LABS: Appearance, Body Fluid Cloudy (Clear); Color, Body Fluid Amber (None-Yellow)
--- NOTE | 2023-06-01 13:10 | NUR ---
PT BACK FROM DIALYSIS. PT A&O X4. BP SOFT, BUT VSS. SPO2 > 92% ON RA. MONITOR SHOWING SR, HR 60s-90s. PT ROOMMATE AT BEDSIDE, PT STATING "I DON'T REMEMBER WHAT HAPPENED. I JUST REMEMBER BEING IN THE ER." PT ROOMMATE TELLING PT "YOU WERE SO OUT OF IT. I KNEW YOU WEREN'T RIGHT SO I BROUGHT YOU IN." PT THORACENTESIS & DIALYSIS COMPLETE THIS AM. MD VAZQUEZ W/ ORDER FOR RENAL DIET. PT ANTICIPATING DISCHARGE IN AM. FIRE IGNITION RISK ASSESSMENT/EDUCATION COMPLETE.
--- NOTE | 2023-06-01 20:11 | NUR ---
END OF SHIFT PT CONTINUES TO BE A&O X4. VSS. SPO2 > 92% ON RA. PT ANTICIPATING DC HOME IN AM. REPORT GIVEN TO PLANT OPERATIONS VICE PRESIDENT RN.
[2023-06-02 04:19] VITALS: BP 94/61
[2023-06-02 04:32] LABS: BASOPHILS ABSOLUTE AUTO 0.01 K/mm3 (0.00-0.23); BASOPHILS PERCENT AUTO 0 % (0-2); EOSINOPHILS ABSOLUTE AUTO 0.11 K/mm3 (0.00-0.68); EOSINOPHILS PERCENT AUTO 1 % (0-6); Hemoglobin 7.9 g/dL (13.5-17.5); IMMATURE GRAN ABSOLUTE AUTO 0.04 K/mm3 (0.00-0.10); IMMATURE GRAN PERCENT AUTO 1 % (0-1); LYMPHOCYTES ABSOLUTE AUTO 0.98 K/mm3 (0.84-5.20); LYMPHOCYTES PERCENT AUTO 11 % (21-46); MONOCYTES ABSOLUTE AUTO 1.11 K/mm3 (0.16-1.47); MONOCYTES PERCENT AUTO 13 % (4-13); Mean Corpuscular HGB 35.9 pg (26.0-34.0); Mean Corpuscular HGB Conc 34.3 g/dL (31.5-36.5); Mean Corpuscular Volume 105 fL (80-100); Mean Platelet Volume 11.3 fL (9.1-12.4); NEUTROPHILS ABSOLUTE AUTO 6.58 K/mm3 (1.96-9.15); NEUTROPHILS PERCENT AUTO 75 % (41-73); Platelet Count 73 K/mm3 (150-400); RDW Coefficient Variation 16.8 % (11.7-14.2); RDW Standard Deviation 64.1 fL (35.1-46.3); White Blood Cell Count 8.83 K/mm3 (4.00-11.30)
--- NOTE | 2023-06-02 05:31 | NUR ---
SHIFT SUMMARY NO ACUTE CHANGES DURING THIS SHIFT. ALERT AND ORIENTED X4. ABLE TO MAKE NEEDS KNOWN. BP STABLE WITH MAP >65. AFEBRILE. SPO2 >92% ON RA. SR ON MONITOR WITH HR 80-90'S. PT DENIES CHEST PAIN/PRESSURE AND SOB. NO OTHER ACUTE CHANGES. SEE ASSESSMENT. ASSESSED PATIENT/FAMILY FOR IGNITION RISK, EDUCATED ABOUT FIRE SAFETY. BED IN LOWEST POSITION AND CALL LIGHT WITHIN REACH. THIS RN WILL CONTINUE TO MONITOR UNTIL SHIFT CHANGE AT 0700.
[2023-06-02 06:00] LABS: Magnesium, Blood 2.3 mg/dL (1.6-2.4)
[2023-06-02 06:14] LABS: Albumin, Blood 2.5 g/dL (3.4-5.0); Albumin/Globulin Ratio 0.6 (0.8-1.8); Bilirubin, Total 4.4 mg/dL (0.1-1.0); Bun/Creatinine Ratio 7.1 (12.0-20.0); Calcium, Blood 8.3 mg/dL (8.5-10.1); Creatinine, Blood 6.32 mg/dL (0.60-1.20); Globulin, Blood 3.9 g/dL (2.2-4.0); Phosphorus, Blood 4.9 mg/dL (2.5-4.9); Potassium, Blood 3.6 mmol/L (3.5-5.5); Total Protein, Blood 6.4 g/dL (6.4-8.2)
[2023-06-02 08:29] VITALS: BP 94/60
--- NOTE | 2023-06-02 09:54 | NUR ---
AM NOTE: PATIENT ALERT AND ORIENTED. POOR HISTORIAN. DENIES NUMBNESS/TINGLING. UP SBA TO BATHROOM AND AROUND ROOM. PARACENTESIS THIS AM, 5.4L REMOVED. ON ROOM AIR SATING ABOVE 94%. REPORTS IMPROVED SOB FROM PREVIOUS THORACENTESIS. CLEAR IN UPPER AND RIGHT LOWER LOBE, LEFT LOWER LOBE REMAINS DIMINSHED. THORACENTESIS SITE SLIGHTLY SORE, BANDAID IN PLACE. EVEN AND UNLABORED BREATHING. DENIES COUGH. TELE SHOWING SR/ST WITH HR 80-110'S. DENIES CHEST PAIN/PRESSURE/PALPITATIONS. PPP. BP STABLE WITH PO MEDICATIONS. ABDOMIN DISTENDED THIS AM AND TIGHT TO TOUCH, PATIENT REPORTS IMPROVED SYMPTOMS POST PARACENTESIS. ABDOMINAL BINDER IN PLACE. HISTORY OF UMBILICAL AND INGUINAL HERNIA. BOWEL TONES PRESENT. EATING AND VOIDING WNL. DIALYSIS PATIENT WITH PERMCATH, CREATES MINIMAL URINE. 3 LOOSE BOWEL MOVEMENTS EARLY THIS AM. CALL LIGHT IN REACH. AM ABX INFUSING.
[2023-06-02 11:30] VITALS: BP 88/56
[2023-06-02] MEDS ORDERED: ACET325 PO (11:54)
[2023-06-02] MEDS ORDERED: LACT PO (11:56)
[2023-06-02] MEDS ORDERED: LEVAQUIN750 MG PO (11:58)
--- NOTE | 2023-06-02 13:08 | NUR ---
DISCHARGE: NO ACUTE CHANGES, SEE PREVIOUS NOTE. PATIENT PLAN TO ATTEND AM DIALYSIS TOMORROW AND SPEAK WITH DR. GARCIA. IN TO GEAR MACHINE OPERATOR PATIENT. DISCHARGE INSTRUCTIONS REVIEWED AND NEW ABX AND PROBIOTIC REVIEWED. PATIENT ABLE TO TEACH BACK ABX ADMINISTRATION INSTRUCTIONS ON ONLY TAKING ON DIALYSIS DAYS AFTER DIAYLSIS IS COMPLETE. MEDS FAXED TO [facility] IN [place]. PATIENT TO GEAR MACHINE OPERATOR TODAY. IV REMOVED WNL. PATIENT LEFT UNIT WITH ALL PERSONAL BELONGINGS.
== END 2023-06-02 12:45 | disposition home or self-care (01) | DRG 432 ==
LOC: ER 16:32 → PCU 06-01 00:45
PROVIDERS: Emergency Medicine; Internal Medicine; Internal Medicine Nephrology; Physician Assistant; ADMIT Student in an Organized Health Care Education/Training Program
PROC: 0W9B30Z Drainage of Left Pleural Cavity with Drainage Device, Percutaneous Approach (ICD-10-PCS; principal; 2023-06-01)
PROC: 5A1D70Z Performance of Urinary Filtration, Intermittent, Less than 6 Hours Per Day (ICD-10-PCS; 2023-06-01)
PROC: 0W9G3ZZ Drainage of Peritoneal Cavity, Percutaneous Approach (ICD-10-PCS; 2023-06-02)
DX: K70.31 Alcoholic cirrhosis of liver with ascites (principal); K76.7 Hepatorenal syndrome; N18.6 End stage renal disease; E87.1 Hypo-osmolality and hyponatremia; J90 Pleural effusion, not elsewhere classified; K76.6 Portal hypertension; K76.82 Hepatic encephalopathy; K72.10 Chronic hepatic failure without coma; D63.1 Anemia in chronic kidney disease; Z20.822 Contact with and (suspected) exposure to COVID-19; D69.6 Thrombocytopenia, unspecified; E87.70 Fluid overload, unspecified; N40.0 Benign prostatic hyperplasia without lower urinary tract symptoms; Z95.9 Presence of cardiac and vascular implant and graft, unspecified; Z79.899 Other long term (current) drug therapy; Z87.81 Personal history of (healed) traumatic fracture; Z99.2 Dependence on renal dialysis; Z79.01 Long term (current) use of anticoagulants
CPT/HCPCS: 0241U; 32555; 36415; 49083; 70450; 71045; 71260; 80053; 82140; 83615; 83690; 83735; 83880; 84100; 84157; 84484; 85025; 85610; 87070; 87205; 89051; 99285-25; A9270; J0696; J0881; P9047; Q9967

== ENCOUNTER 2023-06-09 08:29 | Day surgery (SDC) | payer OTHER ==
[~2023-06-09 08:29] MED LIST changes: +ACET325 PO; +BIOTIN5 MG PO; +GABA100 PO; +LACT PO; +LEVAQUIN750 MG PO
== END 2023-06-09 22:35 | disposition home or self-care (01) ==
LOC: US 08:29
DX: K70.31 Alcoholic cirrhosis of liver with ascites (principal)
CPT/HCPCS: 49083

== ENCOUNTER 2023-06-23 08:29 | Day surgery (SDC) | payer OTHER | END 2023-06-23 22:47 | disposition home or self-care (01) | LOC: US 08:29 | DX: K70.31 Alcoholic cirrhosis of liver with ascites (principal); I85.10 Secondary esophageal varices without bleeding; K76.82 Hepatic encephalopathy; K21.9 Gastro-esophageal reflux disease without esophagitis | CPT/HCPCS: 49083 ==

== ENCOUNTER 2023-06-30 08:33 | Day surgery (SDC) | payer OTHER ==
--- NOTE | 2023-06-30 13:23 | NUR ---
VS AT 1010 92/56, 16 RR, 100% RA HR 81 TEMP 96.9
== END 2023-06-30 23:09 | disposition home or self-care (01) ==
LOC: US 08:33
DX: K70.31 Alcoholic cirrhosis of liver with ascites (principal)
CPT/HCPCS: 49083; P9047

== ENCOUNTER 2023-07-07 08:22 | Day surgery (SDC) | payer OTHER ==
[2023-07-07 10:30] VITALS: BP 92/60
--- NOTE | 2023-07-07 11:35 | NUR ---
ARRIVED TO ROOM VIA RENETTA GONSALVES, DENIES ANY PAIN OR ANY DISCOMFORT, BANDAID ON R ABD C/D/I, 20G IV STARTED ON RAC, MCKAYLA WELL, PT HERE FOR ALBUMIN INFUSIONS.
[2023-07-07 13:27] VITALS: BP 89/55
--- NOTE | 2023-07-07 13:28 | NUR ---
ALBUMIN INFUSTIONS COMPLETED, PT TOLERATED WELL, R ABD BANDAID C/D/I, DC'D HOME W/ INSTRUCTIONS, VERBALIZED UNDERSTANDING.
== END 2023-07-07 13:30 | disposition home or self-care (01) ==
LOC: US 08:22 → SURS 10:37 → US 13:30
DX: K70.31 Alcoholic cirrhosis of liver with ascites (principal)
CPT/HCPCS: 49083; P9047

== ENCOUNTER 2023-07-11 03:42 | Inpatient (IN) | payer OTHER ==
[~2023-07-11] VITALS: Ht 172.7 cm; Wt 93.0 kg
[2023-07-11] VITALS (31 sets, daily range): BP systolic 64–114; BP diastolic 39–72
[2023-07-11] MEDS ORDERED: DROXIDOPA100 MG PO (04:28)
[2023-07-11 04:36] LABS: BASOPHILS ABSOLUTE AUTO 0.03 K/mm3 (0.00-0.23); BASOPHILS PERCENT AUTO 0 % (0-2); EOSINOPHILS ABSOLUTE AUTO 0.38 K/mm3 (0.00-0.68); EOSINOPHILS PERCENT AUTO 4 % (0-6); Hemoglobin 7.5 g/dL (13.5-17.5); IMMATURE GRAN ABSOLUTE AUTO 0.02 K/mm3 (0.00-0.10); IMMATURE GRAN PERCENT AUTO 0 % (0-1); LYMPHOCYTES ABSOLUTE AUTO 1.05 K/mm3 (0.84-5.20); LYMPHOCYTES PERCENT AUTO 12 % (21-46); MONOCYTES ABSOLUTE AUTO 1.11 K/mm3 (0.16-1.47); MONOCYTES PERCENT AUTO 13 % (4-13); Mean Corpuscular HGB 36.2 pg (26.0-34.0); Mean Corpuscular HGB Conc 34.1 g/dL (31.5-36.5); Mean Corpuscular Volume 106 fL (80-100); NEUTROPHILS ABSOLUTE AUTO 6.19 K/mm3 (1.96-9.15); NEUTROPHILS PERCENT AUTO 71 % (41-73); Platelet Count 108 K/mm3 (150-400); RDW Coefficient Variation 14.3 % (11.7-14.2); RDW Standard Deviation 55.3 fL (35.1-46.3); Red Blood Cell Count 2.07 M/mm3 (4.30-5.90); White Blood Cell Count 8.78 K/mm3 (4.00-11.30)
[2023-07-11 04:52] LABS: International Normalized Ratio 1.47; Prothrombin Time Results 15.1 Sec (9.7-11.5)
[2023-07-11 05:02] LABS: Albumin, Blood 2.3 g/dL (3.4-5.0); Albumin/Globulin Ratio 0.5 (0.8-1.8); Bilirubin, Total 2.5 mg/dL (0.1-1.0); Bun/Creatinine Ratio 6.9 (12.0-20.0); Calcium, Blood 8.4 mg/dL (8.5-10.1); Creatinine, Blood 8.87 mg/dL (0.60-1.20); Globulin, Blood 4.3 g/dL (2.2-4.0); Potassium, Blood 4.9 mmol/L (3.5-5.5); Total Protein, Blood 6.6 g/dL (6.4-8.2)
--- NOTE | 2023-07-11 10:43 | NUR ---
TELEPHONE ORDER FROM [facility]HA TO GIVE 10MG MIDODRINE NOW PRIOR TO HD.
--- NOTE | 2023-07-11 18:13 | NUR ---
SUMMARY- PT HAS BEEN AAOX0 THE ENTIRE SHIFT AND WILL NOT ANSWER ANY QUESTIONS APPROPRIATELY. PT SLEPT MOST OF THE SHIFT AND DURING HD TODAY. THIS EVENING AROUND 1700, PT WAS FOUND TRYING TO PULL OUT HIS HD PORT AND IVS. HD NURSE REDRESSED PORT, CHARGE NURSE NOTIFIED, PT PLACED ON CAMERA, PT GIVEN 1MG ATIVAN-HELPED. DESPITE PT DRINKING ALL SCHEDULED LACTULOSE THIS SHIFT, PT HAS ONLY HAD X1 BM-MEDIUM. BRIGHT RED BLOOD WAS IN IN BSC. HEMORRHOIDS SUSPECTED, BLOOD WAS BRIGHT RED AND NOT MIXED W/STOOL. ALL FALL PRECAUTIONS IN PLACE. PT HAS HAD SOFT BP'S ALL SHIFT.
--- NOTE | 2023-07-11 22:39 | NUR ---
WAS CONTACTED NOT LONG AFTER FINISHING HD TX TO COME AND LOOK AT PTS CVC CATH SITE. UPON ARRIVAL PT WAS SITTING ON BEDSIDE CAMMODE WITH SEVERAL STAFF IN THE ROOM. HE HAD NO DRESSING ON HIS CVC PORT EVEN THOUGH I JUST PLACED A NEW ONE AFTER COMPLETING TX. PT HAD LARGE RED AREA SURROUNDING CVC SITE THAT WAS NOT PRESENT WHEN I CHANGED THE DRESSING PRIOR. THERE WAS NOTICABLE OPEN WOUNDS ARROUND THE CVC WHEN NEW DRESSING WAS APPLIED AFTER TX. I CLEANED THE AREA AND REAPPLIED NEW DRESSING TO SITE. PT WAS VERY CONFUSED AND WANTED TO BE LEFT ALONE.
[2023-07-11] MEDS ORDERED: SPIR25 PO (23:02)
[2023-07-11] MEDS ORDERED: BUMETANIDE2 M6 PO (23:03)
[2023-07-11] MEDS ORDERED: CALCIUM ACETAT667 M2 PO (23:05)
[2023-07-12 02:07] VITALS: BP 101/67
--- NOTE | 2023-07-12 05:38 | NUR ---
PT WAS AOX1 AT START OF SHIFT, NOW AOX2-3. PT WAS PULLING HD PORT AND NOT REDIRECTABLE EARLY IN SHIFT, BUE SOFT RESTRAINTS ORDERED AND PLACED. PT LATER AGREED TO NOT PULL LINES, HAS COMPLIED AND RESTRAINTS HAVE BEEN REMOVED AND ORDER DISCONTINUED. NPO BUT REQUESTING BREAKFAST. DOES NOT CALL PRIOR TO TRANSFERING OUT OF BED, DOES NOT RESPOND TO REDIRECTION ATTEMPTS. WEAK GAIT, SBA, NO NEAR FALLS. STABLE ON RA. MULTIPLE LOOSE BM'S.
[2023-07-12 06:08] LABS: BASOPHILS ABSOLUTE AUTO 0.02 K/mm3 (0.00-0.23); BASOPHILS PERCENT AUTO 0 % (0-2); EOSINOPHILS ABSOLUTE AUTO 0.18 K/mm3 (0.00-0.68); EOSINOPHILS PERCENT AUTO 3 % (0-6); Hemoglobin 6.2 g/dL (13.5-17.5); IMMATURE GRAN ABSOLUTE AUTO 0.02 K/mm3 (0.00-0.10); IMMATURE GRAN PERCENT AUTO 0 % (0-1); LYMPHOCYTES ABSOLUTE AUTO 1.07 K/mm3 (0.84-5.20); LYMPHOCYTES PERCENT AUTO 20 % (21-46); MONOCYTES ABSOLUTE AUTO 0.64 K/mm3 (0.16-1.47); MONOCYTES PERCENT AUTO 12 % (4-13); Mean Corpuscular HGB 37.3 pg (26.0-34.0); Mean Corpuscular HGB Conc 34.8 g/dL (31.5-36.5); Mean Corpuscular Volume 107 fL (80-100); Mean Platelet Volume 9.6 fL (9.1-12.4); NEUTROPHILS ABSOLUTE AUTO 3.32 K/mm3 (1.96-9.15); NEUTROPHILS PERCENT AUTO 63 % (41-73); Platelet Count 68 K/mm3 (150-400); RDW Coefficient Variation 14.6 % (11.7-14.2); RDW Standard Deviation 56.8 fL (35.1-46.3); Red Blood Cell Count 1.66 M/mm3 (4.30-5.90); White Blood Cell Count 5.25 K/mm3 (4.00-11.30)
[2023-07-12 06:15] LABS: Hematocrit 17.8 % (37.0-53.0)
[2023-07-12 06:31] LABS: Albumin, Blood 2.5 g/dL (3.4-5.0); Albumin/Globulin Ratio 0.8 (0.8-1.8); Bilirubin, Total 5.8 mg/dL (0.1-1.0); Bun/Creatinine Ratio 6.8 (12.0-20.0); Calcium, Blood 8.4 mg/dL (8.5-10.1); Creatinine, Blood 6.3 mg/dL (0.60-1.20); Globulin, Blood 3.3 g/dL (2.2-4.0); Magnesium, Blood 2.1 mg/dL (1.6-2.4); Phosphorus, Blood 4.8 mg/dL (2.5-4.9); Potassium, Blood 3.8 mmol/L (3.5-5.5); Total Protein, Blood 5.8 g/dL (6.4-8.2)
--- NOTE | 2023-07-12 06:38 | NUR ---
CALLED DR. ROSS AT 06 TO REPORT CRITICALLY LOW HCT OF 17.8. DISCUSSED DROP IN HGB AND HCT COMPARED TO YESTERDAY'S LABS WELL THE POTENTIAL SIGNS OF INTERNAL BLEEDING FROM THE HD PORT SITE ON PT'S CHEST. PT REQUIRED HD PORT DRESSING CHANGED MULTIPLE TIMES ON 07/[address] ROSS STATES HE WILL ASSESS. AFTER THIS CALL DR. GARCIA WAS IN PT'S ROOM. I EXPLAINED THE SITUATION TO DR GARCIA WELL AND SHOWED HIM THE CHANGES ON PT CHEST. AWAITING ORDERS.
[2023-07-12 07:29] VITALS: BP 98/63
[2023-07-12 11:52] VITALS: BP 101/69
[2023-07-12 12:22] VITALS: BP 91/71
[2023-07-12 13:04] VITALS: BP 110/71
[2023-07-12 14:09] VITALS: BP 92/71
--- NOTE | 2023-07-12 16:02 | NUR ---
Patient up to Ambulate independently. Gait steady. Discharge instructions reviewed with patient. Patient verbalizes understanding. Copy given to patient to take home. Patient States Post-Procedure ride home has been arranged. Discharged via wheelchair to private car for ride home. THE PATIENT WAS DISCHARGED HOME WITH HIS SPOUSE, AFTER DISCHARGE INSTUCTIONS WERE GIVE AND HIS IV WAS REMOVED.
== END 2023-07-12 15:47 | disposition home or self-care (01) | DRG 441 ==
LOC: ER 03:42 → MEDS 03:43 → ER 05:27 → MEDS 05:28 → ENPENDDIS 07-12 14:01 → MEDS 07-12 15:47
PROVIDERS: Emergency Medicine; ADMIT Internal Medicine
PROC: 30233N1 Transfusion of Nonautologous Red Blood Cells into Peripheral Vein, Percutaneous Approach (ICD-10-PCS; principal; 2023-07-12)
PROC: 5A1D70Z Performance of Urinary Filtration, Intermittent, Less than 6 Hours Per Day (ICD-10-PCS; 2023-07-12)
DX: K76.82 Hepatic encephalopathy (principal); G92.8 Other toxic encephalopathy; K76.7 Hepatorenal syndrome; N18.6 End stage renal disease; K76.6 Portal hypertension; K70.31 Alcoholic cirrhosis of liver with ascites; D63.1 Anemia in chronic kidney disease; K42.9 Umbilical hernia without obstruction or gangrene; I95.9 Hypotension, unspecified; E88.09 Other disorders of plasma-protein metabolism, not elsewhere classified; N40.0 Benign prostatic hyperplasia without lower urinary tract symptoms; D69.6 Thrombocytopenia, unspecified; F10.21 Alcohol dependence, in remission; Z99.2 Dependence on renal dialysis; Z79.899 Other long term (current) drug therapy; Z87.891 Personal history of nicotine dependence
CPT/HCPCS: 36415; 80053; 82140; 82947; 83605; 83735; 84100; 84145; 84484; 85025; 85610; 85730; 86850; 86900; 86901; 86923; 93005; 93010; 96374; 99285-25; A9270; J0881; J1644; J2060; J7030; J7050; P9016; P9046

== ENCOUNTER 2023-07-14 08:28 | Day surgery (SDC) | payer OTHER ==
[~2023-07-14 08:28] MED LIST changes: +CALCIUM ACETAT667 M2 PO; +DROXIDOPA100 MG PO
--- NOTE | 2023-07-14 09:56 | NUR ---
PT ARRIVED TO UNIT AT 0955. VS 93/61 BP, 18 RR, 99% ON RA, TEMP 98.4, HR 72. PT A/O, SITTING IN CHAIR. AYAN KIRKLAND STARTING IV.
--- NOTE | 2023-07-14 11:07 | NUR ---
2nd BAG OF ALBUMIN STARTED NOW
--- NOTE | 2023-07-14 13:17 | NUR ---
ALBUMIN INFUSED, IV DC'D. PT LEFT UNIT AT ABOUT 1130 ON FOOT, VSS
== END 2023-07-14 23:09 | disposition home or self-care (01) ==
LOC: US 08:28
DX: K70.31 Alcoholic cirrhosis of liver with ascites (principal)
CPT/HCPCS: 49083; P9047

== ENCOUNTER 2023-07-21 08:21 | Day surgery (SDC) | payer OTHER ==
[2023-07-21 10:55] VITALS: BP 91/64
--- NOTE | 2023-07-21 12:24 | NUR ---
PT ARRIVED TO THE ROOM AT APPROXIMATELY 1050. PT ALERT AND ORIENTED AT TIME OF ARRIVAL. PARACENTESIS SITE WNL AND COVERED WITH A BANDAID, SCANT BLOOD ON BANDAID, NO BRUISING OR HEMATOMA OBSERVED AROUND THE SITE.
[2023-07-21 12:30] VITALS: BP 88/51
--- NOTE | 2023-07-21 12:46 | NUR ---
PTS ALBUMIN HAS BEEN COMPLETED. BP IS LOW, PT STATES HE HAS LOW BP AT BASELINE. PT TOOK MEDICATION TO INCREASE BLOOD PRESSURE AND AGREED TO WAIT 1/2 HOUR FOR BLOOD PRESSURE RE-CHECK BEFORE LEAVING.
[2023-07-21 13:30] VITALS: BP 100/59
--- NOTE | 2023-07-21 13:48 | NUR ---
PT'S BLOOD PRESSURE IMPROVED TO SYSTOLIC OF 100/59, HR OF 76, AND O2 SATURATION OF 96%. VSS. PT REPORTS HIS BLOOD PRESSURE IS LOW AT BASELINE, HE DENIES FEELING DIZZY. PARACENTESIS SITE WNL. PT AMBULATED OUT WITH DIONNE ACE AT 1340.
== END 2023-07-21 22:47 | disposition home or self-care (01) ==
LOC: US 08:21
DX: K70.31 Alcoholic cirrhosis of liver with ascites (principal)
CPT/HCPCS: 49083; P9047

== ENCOUNTER 2023-07-26 06:56 | Day surgery (SDC) | payer OTHER ==
[2023-07-26] VITALS (8 sets, daily range): BP systolic 83–104; BP diastolic 50–76
[~2023-07-26] VITALS: Ht 172.7 cm; Wt 88.5 kg
[~2023-07-26 06:56] MED LIST changes: +FLOMAX0.4 MG PO; +METAMUCIL
--- NOTE | 2023-07-26 08:00 | NUR ---
Dr Nicole in to speak to patient at procedure.
--- NOTE | 2023-07-26 08:11 | NUR ---
PATIENT TAKEN TO OUT OF TOWN COLLECTION CLERK FOR PROCEDURE
--- NOTE | 2023-07-26 09:25 | NUR ---
patient resting easily. wakes to verbal stimuli.responds appropriately. left arm fistula site soft, no swelling, no bleeding. dressing D&I.
[2023-07-26] MEDS ORDERED: CLOP75 PO (10:53)
--- NOTE | 2023-07-26 11:20 | NUR ---
PATIENT AND CAREGIVER VERBALIZED UNDERSTANDING OF DISCHARGE INSTRUCTIONS AND PRECAUTIONS. NO FURTHER QUESTIONS. SOFT SLING IN PLACE WITH INSTRUCTIONS, LEFT FISTULOGRAM SITE DRESSING D&I. NO SWELLING NO BLEEDING THRILL AT SITE ASSESED WITH WIRE PHOTO OPERATOR. IV SITE DCED WITH CATHERTER INTACT. PATIENT DISCHARGED VIA WHEEL CHAIR BY DISCHARGE VOLUTEER.
== END 2023-07-26 15:47 | disposition home or self-care (01) ==
LOC: MHTC 06:56
DX: N18.6 End stage renal disease (principal); K21.9 Gastro-esophageal reflux disease without esophagitis; K70.30 Alcoholic cirrhosis of liver without ascites; Z99.2 Dependence on renal dialysis
CPT/HCPCS: 36837; 64415; 76937; 99152; 99153; A9270; C1725; C1769; C1889; C1894; J1644; J2250; J3010; J7030; J7040

== ENCOUNTER 2023-07-28 08:22 | Day surgery (SDC) | payer OTHER ==
[~2023-07-28 08:22] MED LIST changes: +CLOP75 PO
== END 2023-07-28 22:46 | disposition home or self-care (01) ==
LOC: US 08:22
DX: K70.31 Alcoholic cirrhosis of liver with ascites (principal); D64.9 Anemia, unspecified; D69.6 Thrombocytopenia, unspecified; E80.6 Other disorders of bilirubin metabolism; D72.829 Elevated white blood cell count, unspecified; R18.8 Other ascites; Z88.8 Allergy status to other drugs, medicaments and biological substances; K72.10 Chronic hepatic failure without coma; Z79.899 Other long term (current) drug therapy
CPT/HCPCS: 36415; 49083; 71045; 80053; 82140; 83605; 83690; 85025; 87040; 99284-25

== ENCOUNTER 2023-07-28 09:44 | Emergency (ER) | payer MEDICARE, OTHER ==
[~2023-07-28] VITALS: Ht 172.7 cm; Wt 86.2 kg
[2023-07-28 10:41] LABS: BASOPHILS ABSOLUTE AUTO 0.01 K/mm3 (0.00-0.23); BASOPHILS PERCENT AUTO 0 % (0-2); EOSINOPHILS ABSOLUTE AUTO 0.03 K/mm3 (0.00-0.68); EOSINOPHILS PERCENT AUTO 0 % (0-6); Hematocrit 21.8 % (37.0-53.0); Hemoglobin 7.4 g/dL (13.5-17.5); IMMATURE GRAN ABSOLUTE AUTO 0.08 K/mm3 (0.00-0.10); IMMATURE GRAN PERCENT AUTO 1 % (0-1); LYMPHOCYTES ABSOLUTE AUTO 0.83 K/mm3 (0.84-5.20); LYMPHOCYTES PERCENT AUTO 6 % (21-46); MONOCYTES ABSOLUTE AUTO 1.39 K/mm3 (0.16-1.47); MONOCYTES PERCENT AUTO 10 % (4-13); Mean Corpuscular HGB 35.7 pg (26.0-34.0); Mean Corpuscular HGB Conc 33.9 g/dL (31.5-36.5); Mean Corpuscular Volume 105 fL (80-100); Mean Platelet Volume 10.7 fL (9.1-12.4); NEUTROPHILS ABSOLUTE AUTO 11.24 K/mm3 (1.96-9.15); NEUTROPHILS PERCENT AUTO 83 % (41-73); Platelet Count 51 K/mm3 (150-400); RDW Standard Deviation 70.8 fL (35.1-46.3); Red Blood Cell Count 2.07 M/mm3 (4.30-5.90); White Blood Cell Count 13.58 K/mm3 (4.00-11.30)
[2023-07-28 10:57] LABS: Albumin, Blood 2.3 g/dL (3.4-5.0); Albumin/Globulin Ratio 0.6 (0.8-1.8); Bilirubin, Total 3.5 mg/dL (0.1-1.0); Bun/Creatinine Ratio 7.1 (12.0-20.0); Calcium, Blood 8.5 mg/dL (8.5-10.1); Creatinine, Blood 6.62 mg/dL (0.60-1.20); Globulin, Blood 4.1 g/dL (2.2-4.0); Potassium, Blood 3.6 mmol/L (3.5-5.5); Total Protein, Blood 6.4 g/dL (6.4-8.2)
[2023-07-28 11:45] VITALS: BP 83/52
== END 2023-07-28 13:07 | disposition home or self-care (01) ==
LOC: ER 09:44
PROVIDERS: Emergency Medicine
DX: K74.60 Unspecified cirrhosis of liver (principal); D64.9 Anemia, unspecified; D69.6 Thrombocytopenia, unspecified; E80.6 Other disorders of bilirubin metabolism; D72.829 Elevated white blood cell count, unspecified; R18.8 Other ascites; Z88.8 Allergy status to other drugs, medicaments and biological substances; Z79.899 Other long term (current) drug therapy; K72.10 Chronic hepatic failure without coma
CPT/HCPCS: 36415; 71045; 80053; 82140; 83605; 83690; 85025; 99284-25

== ENCOUNTER 2023-07-29 10:03 | Emergency (ER) | payer MEDICARE, OTHER ==
[~2023-07-29] VITALS: Ht 172.7 cm; Wt 86.2 kg
[2023-07-29 13:55] VITALS: BP 106/55
[2023-07-30] MEDS ORDERED: CONSTULOSE10 GM/155 PO (14:15)
== END 2023-07-29 13:58 | disposition home or self-care (01) ==
LOC: ER 10:03
DX: K62.5 Hemorrhage of anus and rectum (principal); K76.89 Other specified diseases of liver; R18.8 Other ascites; D64.9 Anemia, unspecified; Z91.048 Other nonmedicinal substance allergy status; Z79.02 Long term (current) use of antithrombotics/antiplatelets
CPT/HCPCS: 36430; 86850; 86900; 86901; 86923; 96374; 99284-25; C9113; J7030; P9016

== ENCOUNTER 2023-07-30 13:38 | Inpatient (IN) | payer MEDICARE, OTHER ==
[2023-07-30] VITALS (23 sets, daily range): BP systolic 81–118; BP diastolic 48–70
[~2023-07-30] VITALS: Ht 172.7 cm; Wt 77.1 kg
[2023-07-30] MEDS ORDERED: CONSTULOSE10 GM/155 PO (14:15)
[2023-07-30 14:27] LABS: BASOPHILS ABSOLUTE AUTO 0.01 K/mm3 (0.00-0.23); BASOPHILS PERCENT AUTO 0 % (0-2); EOSINOPHILS ABSOLUTE AUTO 0.08 K/mm3 (0.00-0.68); EOSINOPHILS PERCENT AUTO 1 % (0-6); Hematocrit 23.3 % (37.0-53.0); Hemoglobin 7.9 g/dL (13.5-17.5); IMMATURE GRAN ABSOLUTE AUTO 0.06 K/mm3 (0.00-0.10); IMMATURE GRAN PERCENT AUTO 1 % (0-1); LYMPHOCYTES ABSOLUTE AUTO 1.08 K/mm3 (0.84-5.20); LYMPHOCYTES PERCENT AUTO 11 % (21-46); MONOCYTES ABSOLUTE AUTO 1.54 K/mm3 (0.16-1.47); MONOCYTES PERCENT AUTO 16 % (4-13); Mean Corpuscular HGB 34.5 pg (26.0-34.0); Mean Corpuscular HGB Conc 33.9 g/dL (31.5-36.5); Mean Corpuscular Volume 102 fL (80-100); Mean Platelet Volume 10.7 fL (9.1-12.4); NEUTROPHILS ABSOLUTE AUTO 6.95 K/mm3 (1.96-9.15); NEUTROPHILS PERCENT AUTO 72 % (41-73); Platelet Count 71 K/mm3 (150-400); RDW Coefficient Variation 22.5 % (11.7-14.2); RDW Standard Deviation 79.4 fL (35.1-46.3); Red Blood Cell Count 2.29 M/mm3 (4.30-5.90); White Blood Cell Count 9.72 K/mm3 (4.00-11.30)
[2023-07-30 14:40] LABS: International Normalized Ratio 1.57; Prothrombin Time Results 16.1 Sec (9.7-11.5)
[2023-07-30 14:45] LABS: Albumin, Blood 2.3 g/dL (3.4-5.0); Albumin/Globulin Ratio 0.6 (0.8-1.8); Bilirubin, Total 2.9 mg/dL (0.1-1.0); Bun/Creatinine Ratio 8.2 (12.0-20.0); Calcium, Blood 8.8 mg/dL (8.5-10.1); Creatinine, Blood 6.21 mg/dL (0.60-1.20); Globulin, Blood 4.1 g/dL (2.2-4.0); Potassium, Blood 4.3 mmol/L (3.5-5.5); Total Protein, Blood 6.4 g/dL (6.4-8.2)
--- NOTE | 2023-07-30 16:51 | NUR ---
ADMISSION: Pt to ICU 2 from ED.
--- NOTE | 2023-07-30 17:30 | NUR ---
PROVIDER UPDATE: Dr Perez updated up pt status and BP. New MAP goal greater than 60
--- NOTE | 2023-07-30 18:41 | NUR ---
SHIFT SUMMARY: Pt transferred from ED this afternoon. Significant other/roommate at bedside during admission. Pt only repeats, "Just leave me the f*ck alone, please" over and over again. Pt become agitated with RN cares. SO notes that he is very fearful of having a rectal tube placed. TERRANCE.
--- NOTE | 2023-07-30 19:28 | NUR ---
PATIENT OPENS EYES SLIGHTLY, DEVIATED UP, NOT MAKING EYE CONTACT. MUMBLING OVER AND OVER, DIFFICULT TO UNDERSTAND WHAT HE IS SAYING. CLOSING MOUTH TIGHT AND SHAKING HEAD BACK AND FORTH WHEN ATTEMPTING TO DO ORAL CARE, AND WHEN ATTEMPTING TO PROVIDE A SIP OF WATER WITH SPOON. CARLOS, BUT NOT TO DIRECTION. RESISTING ALL ATTEMPT TO REPOSITION. FISTULA TO LEFT FA/AC AREA WITH FAINT THRILL. PERMACATH IN PLACE TO RIGHT CHEST DRESSING CD&I
--- NOTE | 2023-07-30 19:52 | NUR ---
DOCTOR RADHA GIVEN UPDATE AND NOTIFIED OF DIFFICULTY PLACING RECTAL TUBE DUE TO HEMORRHOIDS . PLAN TO PLACE DOBHOFF FOR LACTULOSE DOSES. REQUESTING GI CONSULT WHEN AVAILABLE.
[2023-07-30 21:38] LABS: Source, Urine Clean Catch
--- NOTE | 2023-07-30 21:38 | NUR ---
BLADDER SCAN DONE SHOWING 538, STRAIGHT CATH PLACED DRAINING ONLY 8 CC OF DARK TEA COLORED URINE. ATTENDS PLACED. PATIENTS ABD IS ROUND AND SOFT WITH PASSABLE ASCITES. URINE SENT TO LAB FOR ER ORDERS. DOBHOFF PLACED AT 70 CM CHEST XRAY DONE OK TO USE PER YEN SENIOR FACILITIES MANAGER. PATIENT YELLING OUT "LEAVE ME THE FUCK ALONE" BETWEEN MUMBLING. PATIENT ATTEMPTING TO REMOVE DOBHOFF, BILAT WRIST RESTRAINTS IN PLACE.
[2023-07-30 21:49] LABS: Appearance, Urine Hazy (Clear); Blood, Urine 2+ (Neg); Color, Urine Amber (P-Yellow); Glucose Qualitative, Urine 1+ (Neg); Ketones, Urine 1+ (Neg); Leukocyte Esterase, Urine 2+ (Neg); Nitrite, Urine Pos (Neg); Protein, Urine 3+ (Neg); Urobilinogen, Urine 1+ (Normal)
[2023-07-30 22:06] LABS: Bilirubin, Urine 1+ (Neg)
[2023-07-30 22:08] LABS: Amorphous Light (0-Heavy); Bacteria Few /hpf; Hyaline Casts 0-2 /lpf (0-2); Red Blood Cells, Urine 0-2 /hpf (0-2); Squamous Epithelial Cells Few /hpf (Few)
[2023-07-30 22:20] LABS: U Amphetamine Screen Not Detected; U Barbituate Screen Not Detected; U Benzodiazapine Screen Not Detected; U Buprenorphine Screen Not Detected; U Cannabinoids Screen Not Detected; U Cocaine Screen Not Detected; U Methadone Screen Not Detected; U Methamphetamine Screen Not Detected; U Opiates Screen Not Detected; U Oxycodone Screen Not Detected; U Phencyclidine Screen Not Detected; U Propoxyphene Screen Not Detected
[2023-07-31] VITALS (64 sets, daily range): BP systolic 75–120; BP diastolic 46–73
[2023-07-31 04:17] LABS: Hematocrit 21.3 % (37.0-53.0); Hemoglobin 7.3 g/dL (13.5-17.5)
[2023-07-31 04:46] LABS: Albumin, Blood 2.2 g/dL (3.4-5.0); Albumin/Globulin Ratio 0.6 (0.8-1.8); Bilirubin, Total 3.8 mg/dL (0.1-1.0); Bun/Creatinine Ratio 9.2 (12.0-20.0); Calcium, Blood 8.9 mg/dL (8.5-10.1); Creatinine, Blood 6.98 mg/dL (0.60-1.20); Globulin, Blood 3.8 g/dL (2.2-4.0)
--- NOTE | 2023-07-31 05:18 | NUR ---
SHIFT SUMMARY: Assumed care of patient at 2200. Pt drowsy yet arousable, confused, disoriented. Does not follow commands, in wrist restraints due to attempting to pull NG tube. Turning Q2, lactulose given per NG tube, still no bowel movement.
--- NOTE | 2023-07-31 09:47 | NUR ---
SHIFT ASSESSMENT ASSUMED CARE OF PT @ 0700, BEDSIDE REPORT RECEIVED FROM SARABJIT BOTELLO. PT OPENING EYES BUT NOT RESPONDING PURPOSEFULLY, NO VERBAL RESPONSE. SLIGHT MOVEMENT OF EXTREMITIES, REMAINS IN BL SOFT WRIST RESTRAINTS FOR PROTECTION OF DOBHOFF, WILL FREQUENTLY REASSESS NECESSITY. CURRENTLY RECEIVING DIALYSIS FOLLOWED BY PARACENTESIS. NO BM THUS FAR. MAP >60, NO PRESSORS AT THIS TIME. WILL MONITOR CLOSELY.
[2023-07-31 12:18] LABS: Automated BF WBC Count 0.353 K/mm3 (0-999)
[2023-07-31 12:27] LABS: Body Fluid WBC Count 353 /mm3 (0-999)
[2023-07-31 12:33] LABS: Lactate Dehydrogenase, Body Fl 72 U/L
[2023-07-31 12:34] LABS: pH, Body Fluid 7.9
[2023-07-31 12:51] LABS: RBC Count, Body Fluid 460 /mm3 (0-0)
[2023-07-31 13:00] LABS: Total Cell Count, Body Fluid 100
[2023-07-31 13:01] LABS: Appearance, Body Fluid Hazy (Clear); Color, Body Fluid Yellow (None-Yellow)
--- NOTE | 2023-07-31 17:49 | NUR ---
SHIFT SUMMARY PT SOMNOLENT FOR MOST OF THE DAY. THIS EVENING AROUND 1600 PT BEGAN WAKING UP, REACHING FOR DOBHOFF AND CURSING LOUDLY. PT NOT FOLLOWING COMMANDS NOR IS HE REDIRECTABLE. BL SOFT WRIST RESTRAINTS WERE DC'D FOR A FEW HOURS BUT PLACED BACK ON TO PROTECT DOBHOFF. PT RECEIVED DIALYSIS AND A PARACENTISIS TODAY. RECEIVING LACTULOSE VIA DOBHOFF, NO BM. VSS.
[2023-08-01] VITALS (93 sets, daily range): BP systolic 59–140; BP diastolic 41–115
[2023-08-01 03:42] LABS: Hematocrit 20.3 % (37.0-53.0)
[2023-08-01 03:55] LABS: Albumin, Blood 2.8 g/dL (3.4-5.0); Anion Gap 11 mmol/L (6-16); Blood Urea Nitrogen 65 mg/dL (8-24); Bun/Creatinine Ratio 10.5 (12.0-20.0); CO2, Blood 27 mmol/L (21-32); Chloride, Blood 96 mmol/L (98-108); Creatinine, Blood 6.19 mg/dL (0.60-1.20); Glomerular Filtration Rate 10 (60-); Glucose, Blood 102 mg/dL (70-99); Magnesium, Blood 2.6 mg/dL (1.6-2.4); Phosphorus, Blood 5.3 mg/dL (2.5-4.9); Potassium, Blood 4.1 mmol/L (3.5-5.5); Sodium, Blood 134 mmol/L (136-145)
--- NOTE | 2023-08-01 06:01 | NUR ---
SHIFT SUMMARY: Assumed care of patient at 1900. Patient is yelling out and restless. Disoriented x4, unable to follow commands. Does not track or acknowledge my presence in the room, he just continues to yell. At around 1999, pt began gagging and vomited. Zofran given. Pt bathed and linens and gown changed. After bath, he went back to sleep for a while, then became agitated again at around 2129. At this point, the patient was thrashing around in the bed and grabbing at his NG tube, gagging and screaming. Hospitalist notified, orders for wrist restraints, haldol and PRN ativan received. Per hospitalist, okay to start levophed if hypotension worsens with sedation. Levophed started at 0. Map goal of 60. Levophed is now running at 6mcg/min through the right forearm peripheral IV. PRN dose of ativan given for agitation at 0258. Pt now resting and appears comfortable.
[2023-08-01 09:01] LABS: International Normalized Ratio 1.68; Prothrombin Time Results 17.1 Sec (9.7-11.5)
--- NOTE | 2023-08-01 10:54 | NUR ---
CARE OF PT ASSUMED AT 0700. PT SLEEPING IN BED, AWAKENS W CARE YELLING OUT, SOME PROFANITIES. UNABLE TO FOLLOW COMMONDS, UNABLE TO ANSWER QUESTIONS, PULLS ON RESTRAINTS, KICKS LEGS. MITTS REMOVED AT 0730, WRIST RESTRAINTS REMAIN. LEVOPHED AT 6MCG INFUSING THROUGH 20G PERIPHERAL IV TO RIGHT WRIST, AREA BRUISED BUT IV PATENT W/O SWELLING TO AREA. CLINIMIX ORDERED BY DR GARCIA. LEFT ARM UNAVAILABLE FOR IV ACCESS NEW FISTULA HAS BEEN PLACED. PICC LINE ORDERED BY DR VERMA AND PLACED W/O DIFFICULTY. S/O AT BEDSIDE THIS AM, UPDATE GIVEN. S/O STATES PT WAS DIAGNOSED W PARASITE AT [facility] AND NEEDS TREATMENT; HAS NOT YET HAD TREATMENT D/T ILLNESS. PT'S BROTHER STATES SAME INFORMATION, STATING PT MAY HAVE PICKED UP PARASITE [place]. DR VERMA AWARE, STOOLS TO BE ORDERED. LEVOPHED DECREASED TO 4MCG.
--- NOTE | 2023-08-01 13:13 | NUR ---
HD STARTED AT 1215. PT AWAKE, CONFUSED, AND VERY AGITATED. YELLING OUT AND PULLING ON RESTRAINTS, KICKING LEGS. ATIVAN 1MG GIVEN.
--- NOTE | 2023-08-01 14:46 | NUR ---
1L TAKEN OFF FOR HD, LEVOPHED INCREASED UP TO 6MCG FOR HD TO KEEP MAP>60. PT HAD LARGE SOFT BROWN BM, SAMPLE SENT. PT GIVEN FULL BEDBATH W LINEN CHANGE.
--- NOTE | 2023-08-01 17:55 | NUR ---
PT SLEPT 1/2 THE SHIFT, DURING THE OTHER TIME PT AWAKE AND CONFUSED, YELLING OUT, KICKING, AND PULLING ON RESTRAINTS. PICC LINE PLACED THIS AM. LEVOPHED AT 6MCG TO KEEP MAP>60. ATIVAN 1MG GIVEN TWICE FOR SIGNIFICANT AGITATION. 1L REMOVED WITH HD. PT HAD ONE LARGE BM TODAY, SAMPLE SENT TO R/O PARASITES. TPN STARTED. DR VERMA WANTED TO HOLD OFF ON FEEDING VIA DOBBHOF UNTIL GI CONSULTS PT; GI CONSULT TO BE PLACED TOMORROW PER DR VERMA. PT'S S/O DEB AT BEDSIDE SEVERAL TIMES TODAY, DR VERMA WAS ABLE TO UPDATE DEB. PT REMAINS IN RESTRAINTS. WHEN RESTRAINTS REMOVED TO TURN AND FOR CARE PT IMMEDIATELY REACHES FOR DOBBHOF.
--- NOTE | 2023-08-01 18:16 | NUR ---
PT AWAKE AND SEVERELY AGITATED. PT KICKING LEGS OVER SIDE RAIL AND YELLING PROFANITIES LOUDLY. PT CONFUSED, UNABLE TO REDIRECT. ATIVAN 1MG GIVEN.
--- NOTE | 2023-08-01 22:56 | NUR ---
DOBHOFF NEW DOBHOFF PLACED AT [address] CM. CHEST XRAY DONE. [address] ROSS CONFIRMED PLACEMENT. OKAY TO USE
[2023-08-02] VITALS (77 sets, daily range): BP systolic 71–124; BP diastolic 37–94
[2023-08-02 03:55] LABS: Anion Gap 9 mmol/L (6-16); Blood Urea Nitrogen 61 mg/dL (8-24); Bun/Creatinine Ratio 10.7 (12.0-20.0); CO2, Blood 29 mmol/L (21-32); Calcium, Blood 8.4 mg/dL (8.5-10.1); Chloride, Blood 97 mmol/L (98-108); Glomerular Filtration Rate 11 (60-); Glucose, Blood 125 mg/dL (70-99); Magnesium, Blood 2.6 mg/dL (1.6-2.4); Phosphorus, Blood 4.4 mg/dL (2.5-4.9); Potassium, Blood 3.3 mmol/L (3.5-5.5); Sodium, Blood 135 mmol/L (136-145); Triglycerides 56 mg/dL (30-160)
[2023-08-02 04:05] LABS: Hematocrit 17.2 % (37.0-53.0); Hemoglobin 5.9 g/dL (13.5-17.5)
--- NOTE | 2023-08-02 04:53 | NUR ---
SHIFT SUMMARY: Assumed care of pt at 1900. Pt is very restless, agitated and confused. Yelling and screaming profanities. Oriented to self only. Not following directions but does answer simple questions. Pt in bilateral soft wrist restraints. Around 1999, he leaned his head down to his hand and pulled his Dobhoff tube out. Ativan was ineffective. Hospitalist notified- received order for haldol q4 PRN. Pt calmed down for a while, until we had to replace the Dobhoff tube. Dobhoff placed in left nare at 70cm, confirmed by xray and okay to use per Dr. Pickett. After placement of the dobhoff, pt became increasingly agitated. Precedex orders received. Precedex was on for less than 2 hours, and he became hypotensive so it was titrated off. Levophed at 5mcg/min. As of 0500, he remains calm off the precedex. At 0400- received critical H&H results 5.9/17.2. Dr. Sebastian notified, he did not order blood transfusion at this time.
--- NOTE | 2023-08-02 07:00 | NUR ---
ASSUME CARE: I have assumed care of this patient.
[2023-08-02 09:36] LABS: International Normalized Ratio 1.77
--- NOTE | 2023-08-02 09:48 | NUR ---
FAMILY UPDATE: Pt's mother given update via telephone by RN with verbal permission from pt's significant other.
--- NOTE | 2023-08-02 16:00 | NUR ---
PROVIDER UPDATE: Dr Perez notified of pt status. RN requested to remove Dobhoff as pt is now able to tolerate PO fluids.
--- NOTE | 2023-08-02 17:41 | NUR ---
SHIFT SUMMARY: Pt more alert and oriented this afternoon. He is able to take PO; dobhoff and restraints removed. Family at bedside throughout the day for updates. Dr Alonso at bedside this afternoon. Sandostatin started. Several liquid bowel movements today.
--- NOTE | 2023-08-02 18:17 | NUR ---
IGNITION SOURCES: Sources of ignition rounded on hourly. Pt and family educated on fire prevention in hospital.
[2023-08-03] VITALS (25 sets, daily range): BP systolic 92–116; BP diastolic 50–73
[2023-08-03 03:47] LABS: Hematocrit 18.8 % (37.0-53.0); Hemoglobin 6.4 g/dL (13.5-17.5)
[2023-08-03 04:05] LABS: Albumin, Blood 2.5 g/dL (3.4-5.0); Anion Gap 11 mmol/L (6-16); Blood Urea Nitrogen 77 mg/dL (8-24); Bun/Creatinine Ratio 11.2 (12.0-20.0); CO2, Blood 26 mmol/L (21-32); Chloride, Blood 92 mmol/L (98-108); Creatinine, Blood 6.85 mg/dL (0.60-1.20); Glomerular Filtration Rate 9 (60-); Glucose, Blood 100 mg/dL (70-99); Magnesium, Blood 2.1 mg/dL (1.6-2.4); Phosphorus, Blood 3.9 mg/dL (2.5-4.9); Potassium, Blood 3.4 mmol/L (3.5-5.5); Sodium, Blood 129 mmol/L (136-145)
--- NOTE | 2023-08-03 06:15 | NUR ---
ASSUMED CARE OF PT AT THIS TIME. TRANSFERRED TO BED WITH SLIDER SHEET. PT ALERT AND ORIENTED CURRENTLY AND ABLE TO FOLLOW DIRECTIONS. VITALS STABLE. TELE PLACED AND WAITING FOR VERIFICATION OF RHYTHM FROM TECH. PT ABLE TO TAKE MEDS PO WITH NO DIFFICULTY. CPN + SANDOSTATIN INFUSING PER ORDERS. ORIENTED TO CALL LIGHT. BED ALARM IN PLACE FOR SAFETY.
--- NOTE | 2023-08-03 08:10 | NUR ---
AM ASSESSMENT: Pt resting in bed. A/Ox4. Follows all directions. Denies pain. LS clear. BT positive. PUlses palp. HR reg. Multiple bruises over body noted. Permacath to R chest wall and PICC to ERIC. Pt has fisutla to LFA with good thrill noted. BT hyperactive and abd distended. States that his normal day for paracentisis is Fridays. IVF running per orders. Call light in reach. Will continue to monitor.
--- NOTE | 2023-08-03 09:00 | NUR ---
pt take to dialysis. Will await return.
[2023-08-03] MEDS ORDERED: Cholecalciferol1 GM PO (13:22)
[2023-08-03] MEDS ORDERED: GABA100 PO (13:23)
[2023-08-03] MEDS ORDERED: SODBIC650 PO (13:23)
[2023-08-03] MEDS ORDERED: MIDO5 PO (13:24)
[2023-08-03] MEDS ORDERED: CALCIUM ACETAT667 M2 PO (13:24)
[2023-08-03] MEDS ORDERED: BIOTIN5 MG PO (13:24)
[2023-08-03] MEDS ORDERED: DROXIDOPA100 MG PO (13:27)
--- NOTE | 2023-08-03 19:21 | NUR ---
Shift Summary: Pt resting in bed. Remains A/0 x 4. Pt had dialysis today and tolerated well. Was able to increase pt diet to a renal diet. Pt tolerating PO without any issues. Had a large, brown liquid BM today. BP have been stable with MAP's >60 throughout the shift. No other changes. Will report to night RN.
[2023-08-04] VITALS (8 sets, daily range): BP systolic 77–103; BP diastolic 44–57
[2023-08-04 03:45] LABS: Hematocrit 20.6 % (37.0-53.0); Hemoglobin 6.9 g/dL (13.5-17.5)
[2023-08-04 04:02] LABS: Albumin, Blood 2.4 g/dL (3.4-5.0); Anion Gap 10 mmol/L (6-16); Blood Urea Nitrogen 58 mg/dL (8-24); Bun/Creatinine Ratio 10.2 (12.0-20.0); CO2, Blood 26 mmol/L (21-32); Calcium, Blood 7.7 mg/dL (8.5-10.1); Chloride, Blood 101 mmol/L (98-108); Creatinine, Blood 5.66 mg/dL (0.60-1.20); Glomerular Filtration Rate 11 (60-); Glucose, Blood 96 mg/dL (70-99); Magnesium, Blood 1.9 mg/dL (1.6-2.4); Phosphorus, Blood 3.3 mg/dL (2.5-4.9); Potassium, Blood 3.3 mmol/L (3.5-5.5); Sodium, Blood 137 mmol/L (136-145)
--- NOTE | 2023-08-04 04:39 | NUR ---
SHIFT SUMMARY: PT ALERT AND ORIENTED X4, ABLE TO FOLLOW COMMANDS AND MAKE NEEDS KNOWN. HR SR 80'S, AFEBRILE, SATS >98% ON RA. BP SOFT, MEDICATED PER EMAR W/ MIDODRINE. PT ABLE TO SLEEP ON AND OFF MAJORITY OF THE SHIFT. PLAN FOR POSSIBLE PARACENTESIS IN AM THEN DISCHARGE. PICC PLACED IN ERIC, DRAWS AND FLUSHES. BED IN LOW, CALL LIGHT IN REACH, WILL REPORT TO ONCOMING RN.
[2023-08-04 10:27] LABS: Automated BF WBC Count 0.155 K/mm3 (0-999)
[2023-08-04 10:43] LABS: Body Fluid WBC Count 155 /mm3 (0-999)
[2023-08-04 11:19] LABS: RBC Count, Body Fluid 312 /mm3 (0-0)
[2023-08-04 12:15] LABS: Total Cell Count, Body Fluid 100
[2023-08-04 12:17] LABS: Appearance, Body Fluid Hazy (Clear); Color, Body Fluid Yellow (None-Yellow)
[2023-08-04 15:00] LABS: Hematocrit 22.6 % (37.0-53.0); Hemoglobin 7.7 g/dL (13.5-17.5)
[2023-08-04] MEDS ORDERED: CIPR250 PO (16:19)
[2023-08-04] MEDS ORDERED: SPIR25 PO (16:19)
[2023-08-04] MEDS ORDERED: PANT20 PO (16:19)
--- NOTE | 2023-08-04 16:34 | NUR ---
DISCHARGE NOTE: PATIENT AND PATIENTS SPOUSE WERE EDUCATED ON DISCHARGE INSTRUCTIONS. BOTH VERBALIZED UNDERSTANDING OF INSTRUCTIONS AND HAD NO FURTHER QUESTIONS AT THIS TIME. PATIENT IS A&OX4. HIS Hgb CAME BACK AT A 7.7 AFTER 1 BAG OF RBC'S. PATIENT WILL HAVE HIS Hgb TESTED AGAIN TOMORROW MORNING WITH HIS DIALYSIS APPOINTMENT. HE IS TOLERATING PO INTAKE AND IS VOIDING/HAVING BMS. AFTER HE HAD HIS PARACENTESIS DONE EARLIER THIS MORNING (AFTER 6L OF FLUIDS WERE TAKEN OUT) PATIENT ABD IS NOT NEARLY DISTENDED AND PATIENT STATES "I FEEL A LOT MORE COMFORTABLE. IT'S WHY I GET IT DONE EVERY MONDAY MORNING". HE IS A SBA WITH AMBULATION. PATIENT HAS HIS PERSONAL ITEMS IN THE ROOM GATHERED. AWAITING FOR PICC LINE REMOVAL FROM A PICC CERTIFIED NURSE THEN PATIENT WILL BE WHEELCHAIRED DOWN BY HIS SPOUSE TO THEIR CAR TO BE TAKEN HOME. PATIENTS NEW PERSCRIPTIONS WERE FAXED TO THEIR PREFERRED PHARMACY WHICH IS [facility] [employer].
--- NOTE | 2023-08-04 17:10 | NUR ---
PATIENT IS BEING WHEELCHAIRED OUT BY SPOUSE TO THEIR CAR AND BE TAKEN HOME. PERSONAL ITEMS IN THE ROOM ARE GATHERED.
== END 2023-08-04 17:28 | disposition home or self-care (01) | DRG 871 ==
LOC: ER 13:38 → PCU 15:21 → ICUE 15:21 → PCU 08-03 06:08
PROVIDERS: Emergency Medicine; Internal Medicine; Internal Medicine Nephrology; ADMIT Internal Medicine
PROC: 0DH67UZ Insertion of Feeding Device into Stomach, Via Natural or Artificial Opening (ICD-10-PCS; principal; 2023-07-30)
PROC: 3E033XZ Introduction of Vasopressor into Peripheral Vein, Percutaneous Approach (ICD-10-PCS; 2023-07-30)
PROC: 3E03329 Introduction of Other Anti-infective into Peripheral Vein, Percutaneous Approach (ICD-10-PCS; 2023-07-30)
PROC: 0W9G3ZZ Drainage of Peritoneal Cavity, Percutaneous Approach (ICD-10-PCS; 2023-07-31)
PROC: 02HV33Z Insertion of Infusion Device into Superior Vena Cava, Percutaneous Approach (ICD-10-PCS; 2023-08-01)
PROC: 30233N1 Transfusion of Nonautologous Red Blood Cells into Peripheral Vein, Percutaneous Approach (ICD-10-PCS; 2023-08-03)
PROC: 30233J1 Transfusion of Nonautologous Serum Albumin into Peripheral Vein, Percutaneous Approach (ICD-10-PCS; 2023-08-03)
PROC: 5A1D70Z Performance of Urinary Filtration, Intermittent, Less than 6 Hours Per Day (ICD-10-PCS; 2023-08-04)
PROC: 0W9G3ZZ Drainage of Peritoneal Cavity, Percutaneous Approach (ICD-10-PCS; 2023-08-04)
DX: A41.9 Sepsis, unspecified organism (principal); K65.2 Spontaneous bacterial peritonitis; K76.7 Hepatorenal syndrome; N18.6 End stage renal disease; R65.21 Severe sepsis with septic shock; E87.1 Hypo-osmolality and hyponatremia; K92.2 Gastrointestinal hemorrhage, unspecified; E72.20 Disorder of urea cycle metabolism, unspecified; N25.81 Secondary hyperparathyroidism of renal origin; K70.31 Alcoholic cirrhosis of liver with ascites; K76.82 Hepatic encephalopathy; D63.1 Anemia in chronic kidney disease; D69.6 Thrombocytopenia, unspecified; K64.9 Unspecified hemorrhoids; B95.2 Enterococcus as the cause of diseases classified elsewhere; N40.0 Benign prostatic hyperplasia without lower urinary tract symptoms; E87.70 Fluid overload, unspecified; K72.10 Chronic hepatic failure without coma; E86.9 Volume depletion, unspecified; F10.11 Alcohol abuse, in remission; K42.9 Umbilical hernia without obstruction or gangrene; K40.90 Unilateral inguinal hernia, without obstruction or gangrene, not specified as recurrent; E88.09 Other disorders of plasma-protein metabolism, not elsewhere classified; K21.9 Gastro-esophageal reflux disease without esophagitis; E83.41 Hypermagnesemia; E87.6 Hypokalemia; Z91.158 Patient's noncompliance with renal dialysis for other reason; Z98.890 Other specified postprocedural states; Z79.899 Other long term (current) drug therapy; Z87.891 Personal history of nicotine dependence; Z99.2 Dependence on renal dialysis
CPT/HCPCS: 36415; 36430; 36569; 49083; 51701; 71045; 80048; 80053; 80069; 81001; 82140; 82947; 83615; 83735; 83986; 84100; 84478; 85014; 85018; 85025; 85610; 86850; 86900; 86901; 86923; 87040; 87070; 87077; 87086; 87186; 87205; 88108; 88305; 89051; 93005; 93010; 96374; 99284-25; 99285-25; A9270; C1751; C9113; J0612; J0696; J0881; J1630; J2060; J2354; J2405; J3411; J3480; J7030; J7050; J7060; J7131; P9016; P9046; P9047

== ENCOUNTER 2023-08-11 08:37 | Day surgery (SDC) | payer OTHER ==
[~2023-08-11 08:37] MED LIST changes: +CIPR250 PO; +Cholecalciferol1 GM PO; +PANT20 PO
== END 2023-08-11 22:42 | disposition home or self-care (01) ==
LOC: US 08:37
DX: K70.31 Alcoholic cirrhosis of liver with ascites (principal)
CPT/HCPCS: 49083

== ENCOUNTER 2023-08-18 08:33 | Day surgery (SDC) | payer OTHER | END 2023-08-18 22:39 | disposition home or self-care (01) | LOC: US 08:33 | DX: K70.31 Alcoholic cirrhosis of liver with ascites (principal) | CPT/HCPCS: 49083 ==

== ENCOUNTER 2023-08-30 12:08 | Day surgery (SDC) | payer OTHER ==
[~2023-08-30] VITALS: Ht 170.2 cm; Wt 88.6 kg
[2023-08-30] MEDS ORDERED: RIFA550T2 PO (13:19)
[2023-08-30 17:33] VITALS: BP 78/50
--- NOTE | 2023-08-30 17:34 | NUR ---
08/30/23 1734 Minerva Buckley IV AT 1721 WNL
== END 2023-08-30 17:31 | disposition home or self-care (01) ==
LOC: ORSCSDS 12:08
PROVIDERS: Internal Medicine Gastroenterology
PROC: 0DJD8ZZ Inspection of Lower Intestinal Tract, Via Natural or Artificial Opening Endoscopic (ICD-10-PCS; principal; 2023-08-30 13:15)
PROC: 0DJ08ZZ Inspection of Upper Intestinal Tract, Via Natural or Artificial Opening Endoscopic (ICD-10-PCS; principal; 2023-08-30 13:15)
DX: K62.5 Hemorrhage of anus and rectum (principal); K74.60 Unspecified cirrhosis of liver; K76.6 Portal hypertension; K31.89 Other diseases of stomach and duodenum; K57.30 Diverticulosis of large intestine without perforation or abscess without bleeding; K64.4 Residual hemorrhoidal skin tags; F17.210 Nicotine dependence, cigarettes, uncomplicated; N18.6 End stage renal disease; Z79.899 Other long term (current) drug therapy
CPT/HCPCS: J0461; J2001; J2405; J2704; J7030; J7120; Q9968

== ENCOUNTER 2023-09-01 08:39 | Day surgery (SDC) | payer MEDICARE, OTHER | END 2023-09-01 22:48 | disposition home or self-care (01) | LOC: US 08:39 | DX: K70.31 Alcoholic cirrhosis of liver with ascites (principal) | CPT/HCPCS: 49083 ==

== ENCOUNTER 2023-09-08 10:27 | Inpatient (IN) | payer OTHER ==
[2023-09-08] VITALS (13 sets, daily range): BP systolic 69–90; BP diastolic 35–54
[~2023-09-08] VITALS: Ht 170.2 cm; Wt 73.6 kg
[2023-09-08 11:10] LABS: BASOPHILS ABSOLUTE AUTO 0.01 K/mm3 (0.00-0.23); BASOPHILS PERCENT AUTO 0 % (0-2); EOSINOPHILS ABSOLUTE AUTO 0.01 K/mm3 (0.00-0.68); EOSINOPHILS PERCENT AUTO 0 % (0-6); Hematocrit 26.7 % (37.0-53.0); IMMATURE GRAN ABSOLUTE AUTO 0.08 K/mm3 (0.00-0.10); IMMATURE GRAN PERCENT AUTO 1 % (0-1); LYMPHOCYTES ABSOLUTE AUTO 0.79 K/mm3 (0.84-5.20); LYMPHOCYTES PERCENT AUTO 6 % (21-46); MONOCYTES ABSOLUTE AUTO 1.74 K/mm3 (0.16-1.47); MONOCYTES PERCENT AUTO 13 % (4-13); Mean Corpuscular HGB 35.9 pg (26.0-34.0); Mean Corpuscular HGB Conc 33.7 g/dL (31.5-36.5); Mean Corpuscular Volume 106 fL (80-100); Mean Platelet Volume 11.6 fL (9.1-12.4); NEUTROPHILS PERCENT AUTO 81 % (41-73); Platelet Count 67 K/mm3 (150-400); RDW Coefficient Variation 19.9 % (11.7-14.2); RDW Standard Deviation 78.8 fL (35.1-46.3); Red Blood Cell Count 2.51 M/mm3 (4.30-5.90); White Blood Cell Count 13.83 K/mm3 (4.00-11.30)
[2023-09-08 11:25] LABS: Albumin, Blood 1.8 g/dL (3.4-5.0); Albumin/Globulin Ratio 0.3 (0.8-1.8); Bilirubin, Total 3.3 mg/dL (0.1-1.0); Bun/Creatinine Ratio 12.8 (12.0-20.0); Calcium, Blood 8.8 mg/dL (8.5-10.1); Globulin, Blood 5.4 g/dL (2.2-4.0); Potassium, Blood 4.8 mmol/L (3.5-5.5); Total Protein, Blood 7.2 g/dL (6.4-8.2)
[2023-09-08 11:28] LABS: International Normalized Ratio 2.11; Prothrombin Time Results 21.2 Sec (9.7-11.5)
--- NOTE | 2023-09-08 16:34 | NUR ---
ARRIVAL TO PCU REPORT TAKEN FROM VIOLETTA BOTELLO. PT ARRIVED TO U5 AT 1509 VIA GURNEY. PT ABLE TO STAND AND PIVOT TO HOSPITAL BED. ON ARRIVAL, PT ALERT AND ORIENTED X4. ABLE TO MAKE NEEDS KNOWN TO STAFF AND PROVIDE A MEDICAL HISTORY. NSR 80'S ON TELEMETRY. SBP 70-90'S; MD AWARE. SPO2 >93% ON RA, NO VISIBLE DYSPNEA. DENIES PAIN AT THIS TIME. VANCOMYCIN INFUSING PER EMAR INTO ERIC IV. PT'S ROOMMATE/CAREGIVER, DEB, AT BEDSIDE. SEE ADMISSION HISTORY AND ASSESSMENT FOR ADDITIONAL DETAILS. PT THOROUGHLY EDUCATED ON TOBACCO-FREE CAMPUS AND NO SMOKING POLICY. DENIES ANY IGNITION SOURCES AT TIME OF ADMISSION. NO FURTHER NEEDS AT THIS TIME. CALL LIGHT WITHIN REACH, BED IN LOWEST POSITION.
--- NOTE | 2023-09-08 16:52 | NUR ---
THIS RN PLACED CALL TO ROOMMATE DEB WITH PATIENT PERMISSION. DEB TO BRING IN HOME MED TONIGHT.
--- NOTE | 2023-09-08 18:26 | NUR ---
END OF SHIFT NOTE: NO ACUTE CHANGES FOLLOWING TRANSFER NOTE. VSS. CALL LIGHT WITHIN REACH, BED IN LOWEST POSITION. WILL REPORT TO ONCOMING NOC RN.
[2023-09-09] VITALS (54 sets, daily range): BP systolic 58–97; BP diastolic 29–59
[2023-09-09 04:15] LABS: BASOPHILS ABSOLUTE AUTO 0.02 K/mm3 (0.00-0.23); BASOPHILS PERCENT AUTO 0 % (0-2); EOSINOPHILS ABSOLUTE AUTO 0.06 K/mm3 (0.00-0.68); EOSINOPHILS PERCENT AUTO 1 % (0-6); Hematocrit 21.3 % (37.0-53.0); Hemoglobin 7.4 g/dL (13.5-17.5); IMMATURE GRAN ABSOLUTE AUTO 0.08 K/mm3 (0.00-0.10); IMMATURE GRAN PERCENT AUTO 1 % (0-1); LYMPHOCYTES ABSOLUTE AUTO 1.04 K/mm3 (0.84-5.20); LYMPHOCYTES PERCENT AUTO 10 % (21-46); MONOCYTES ABSOLUTE AUTO 1.56 K/mm3 (0.16-1.47); MONOCYTES PERCENT AUTO 15 % (4-13); Mean Corpuscular HGB 36.1 pg (26.0-34.0); Mean Corpuscular HGB Conc 34.7 g/dL (31.5-36.5); Mean Corpuscular Volume 104 fL (80-100); Mean Platelet Volume 12.5 fL (9.1-12.4); NEUTROPHILS PERCENT AUTO 74 % (41-73); NRBC ABSOLUTE 0.03 K/mm3 (0.00-0.02); NRBC Auto 0.3 /100 WBC (0.0-0.2); Platelet Count 52 K/mm3 (150-400); RDW Coefficient Variation 19.9 % (11.7-14.2); RDW Standard Deviation 77.2 fL (35.1-46.3); Red Blood Cell Count 2.05 M/mm3 (4.30-5.90); White Blood Cell Count 10.46 K/mm3 (4.00-11.30)
[2023-09-09 04:54] LABS: Magnesium, Blood 2.6 mg/dL (1.6-2.4)
[2023-09-09 05:01] LABS: Albumin, Blood 2.3 g/dL (3.4-5.0); Albumin/Globulin Ratio 0.6 (0.8-1.8); Bilirubin, Total 3.1 mg/dL (0.1-1.0); Calcium, Blood 8.8 mg/dL (8.5-10.1); Creatinine, Blood 7.28 mg/dL (0.60-1.20); Globulin, Blood 3.7 g/dL (2.2-4.0); Phosphorus, Blood 8.2 mg/dL (2.5-4.9); Potassium, Blood 4.7 mmol/L (3.5-5.5)
--- NOTE | 2023-09-09 06:39 | NUR ---
SHIFT SUMMARY PATIENT ALERT AND ORIENTED X4. HAD NO COMPLAINTS OF PAIN OR SHORTNESS OF BREATH. ON ROOM AIR. PATIENT HAS BEEN HYPOTENSIVE WITH MAP IN THE 4O'S-50'S ALL NIGHT, CONTACTED DR GARCIA REGARDING THIS AND HE SAID HE DID NOT WANT TO BE CONTACTED REGARDING THE PATIENT'S BLOOD PRESSURE UNLESS HE IS SYMPTOMATIC. PATIENT DENIES ANY SYMPTOMS OF DIZZINESS AND LIGHT HEADEDNESS EVEN WHEN SITTING OR STANDING. SINUS RHYTHM ON TELE. DENIES CHEST PAIN. WILL CONTINUE TO MONITOR. CALL LIGHT WITHIN REACH.
[2023-09-09 10:03] LABS: Vancomycin, Random 25.2 ug/mL
--- NOTE | 2023-09-09 12:49 | NUR ---
UPDATE CALL PLACED TO MD VAZQUEZ REGARDING ABDOMINAL PAIN/NAUSEA/VOMITING. PT REPORTS FEELING "FULL OF POOP" AND "SICK TO MY STOMACH". ORDERS RECEIVED FOR PORTABLE ABDOMINAL XR AND ZOFRAN 4MG Q6 PRN. MD VAZQUEZ TO BEDSIDE. ADDITIONAL ORDERS RECEIVED FOR TRANSFER TO ICU DUE TO PERSISTENT HYPOTENSION AND SEPSIS. PT REMAINS FULL CODE, TOLD THIS RN ON 09/08/23 THAT HE WANTS "EVERYTHING DONE TO SAVE ME" IN THE EVENT OF A CARDIAC ARREST. LOG PREPARER NOTIFIED OF ORDERS TO TRANSFER. WILL REPORT TO POLYETHYLENE COMBINER.
--- NOTE | 2023-09-09 12:52 | NUR ---
SIGNIFICANT OTHER DEB [phone] CALLED, NO ANSWER. MESSAGE LEFT WITH UPDATE ON TRANSFER TO ICU.
[2023-09-09 13:43] LABS: Hematocrit 22.3 % (37.0-53.0); Hemoglobin 7.5 g/dL (13.5-17.5)
--- NOTE | 2023-09-09 14:00 | NUR ---
TRANSFER TO ICU PT TRANSFERRED FROM PCU5 TO ICU9 AT 1400 BY THIS RN. BEDSIDE REPORT GIVEN TO MATHEW BOTELLO. VITAL SIGNS AND PT CONDITION REMAIN UNCHANGED FROM PREVIOUS NOTE.
[2023-09-09 14:12] LABS: Albumin, Blood 2.5 g/dL (3.4-5.0); Albumin/Globulin Ratio 0.7 (0.8-1.8); Bilirubin, Total 3.3 mg/dL (0.1-1.0); Bun/Creatinine Ratio 12.7 (12.0-20.0); Calcium, Blood 8.9 mg/dL (8.5-10.1); Creatinine, Blood 8.05 mg/dL (0.60-1.20); Globulin, Blood 3.7 g/dL (2.2-4.0); Potassium, Blood 4.7 mmol/L (3.5-5.5); Total Protein, Blood 6.2 g/dL (6.4-8.2)
--- NOTE | 2023-09-09 14:47 | NUR ---
CRITICAL VALUE: NOTIFIED DR. GARCIA OF CRITICAL HIGH CREATININE AND TRANSFER TO ICU. DR. GARCIA REPORTED THAT THE PATIENT WILL RECEIVE DIALYSIS TOMORROW. NO NEW ORDERS AT THIS TIME.
--- NOTE | 2023-09-09 18:37 | NUR ---
SHIFT SUMMARY: PATIENT ARRIVED TO UNIT VIA STRETCHER FROM PCU AROUND 1500. NEURO: PATIENT ALERT AND ORIENTED X4 THROUGHOUT SHIFT. PATIENT HAS A SOFT SOMETIMES MUMBLED VOICE. ABLE TO MAKE NEEDS KNOWN. REPORTS NUMBNESS IN FEET RELATED TO LOW BPS. ABLE TO FEEL LIGHT TOUCH/PRESSURE. CARDIAC: PATIENT STARTED ON LEVOPHED GTT TO ACHIEVE MAPS >65. BY THE END OF THE SHIFT, PATIENT AT 7 MCG/KG/MIN WITH MAPS IN THE LOW 60S. SBPS IN THE 70S-80S. MINIMAL CHANGE NOTED DURING TITRATION OF LEVO. PATIENT REPORTS HE OFTEN RUNS IN THE 70S. PATIENT STOPPED ON HOME MEDICATION WHILE THE LEVO GTT IS INFUSING. HR MAINTAINED IN THE 80S-90S. RESPSIRATORY: UPON TRANSFER TO THE ICU, PATIENT DESATTED DOWN TO 88% ON RA. SUPPLIED PATIENT WITH 2L O2 VIA NC. SPO2 93-95%. DENIES SHORTNESS OF BREATH OR DIFFICULTY BREATHING. BREATHS ARE EVEN AND REGULAR. LUNGS CLEAR THROUGHOUT. GI/: PATIENT HAS A DISTENDED, TENDER ABDOMEN. TYMPANIC BOWEL SOUNDS. PATIENT REPORTS DISCOMFORT AND FEELING LIKE HE IS "STOPPED UP". DISCUSSED RESULTS OF ABD XRAY ONCE DISCUSSED WITH DR. VAZQUEZ. ASSISTED WITH REPOSITIONING AND HEAT THERAPY. PATIENT DECLINES PAIN MEDICATIONS. NPO FOR BOWEL REST EXCEPT FOR MEDICATIONS. HEMODIALYSIS PLANNED FOR TOMORROW. PSYCHSOCIAL: PATIENT CALM AND COOPERATIVE. FRIENDLY WITH STAFF. HAS SO AND FRIENDS THAT PROVIDE SUPPORT. : PATIENT REPORTS HE RARELY MAKES URINE
--- NOTE | 2023-09-09 23:32 | NUR ---
ASSUMED CARE ASSUMED CARE AT 1900. PT A/O X 4. CALM AND COOPERATIVE WITH CARE. DROWSY AND FALLS ASLEEP EASILY. LEVOPHED GTT INFUSING THROUGH PIV. SITE WNL WITH POSITIVE BLOOD RETURN. HOSP CALLED REGARDING LEVOPHED AT PERIPHERAL DOSE MAX AND MAPS IN THE 50'S. HOSP AT BEDSIDE AND CENTRAL LINE PLACED IN R FEMORAL. HD CATH TO R UPPER CHEST. PT STATES HE CAN ONLY COVER SITE WITH BAND-AID'S OR PAPER TAPE. DRSG C/D/I. VERBAL ORDER TO MAINTAIN MAPS GREATER THEN 60. SEE FLOWSHEET FOR TITRATIONS. SR RATE 80-90'S. OTHER VSS. ABD DISTENDED, FIRM AND TENDER. PT REPORTS FEELING FULL AND THE URGE TO HAVE A BM BUT BEING UNABLE TO DO SO. HEATING PAD IN PLACE ON ABD AND PT REPORTS FEELING A LITTLE BIT BETTER. PT STATES HE IS ANURIC AT BASELINE. CALL LIGHT IN REACH.
[2023-09-10] VITALS (83 sets, daily range): BP systolic 61–110; BP diastolic 40–63
[2023-09-10 04:26] LABS: Hematocrit 22.7 % (37.0-53.0); Hemoglobin 7.8 g/dL (13.5-17.5)
[2023-09-10 05:13] LABS: Albumin, Blood 2.8 g/dL (3.4-5.0); Anion Gap 16 mmol/L (6-16); Blood Urea Nitrogen 117 mg/dL (8-24); CO2, Blood 22 mmol/L (21-32); Calcium, Blood 9.4 mg/dL (8.5-10.1); Chloride, Blood 88 mmol/L (98-108); Creatinine, Blood 8.99 mg/dL (0.60-1.20); Glomerular Filtration Rate 6 (60-); Glucose, Blood 143 mg/dL (70-99); Phosphorus, Blood 9.6 mg/dL (2.5-4.9); Potassium, Blood 5.8 mmol/L (3.5-5.5); Sodium, Blood 126 mmol/L (136-145)
--- NOTE | 2023-09-10 06:40 | NUR ---
SHIFT SUMMARY PT CONTINUED TO HAVE HYPOTENSION AND IS NOW ON LEVOPHED AND VASOPRESSIN TO KEEP MAP GREATER THEN 60. SR/ST 90-100'S. OTHER VSS. PT REPORTS FLATULENCE AND ABD FEELING BETTER THIS AM. ATTEMPTED TO HAVE BM AND UNABLE TO AT THIS TIME. MORNING LABS CALLED TO DR GARCIA, NO NEW ORDERS AND PLAN FOR DIALYSIS TODAY. WILL REPORT OFF TO DAY RN.
--- NOTE | 2023-09-10 08:00 | NUR ---
INITIAL ASSESSMENT PATIENT ALERT AND ORIENTED X 4, AFEBRILE. PATIENT PLEASANT, CALM AND COOPERATIVE. SPEECH SOFT. PATIENT WEAK BUT ABLE TO MOVE ALL EXTREMITIES. PATIENT DENIES PAIN. PATIENT SATTING 90% AND GREATER ON 2 L NC. LUNGS CLEAR TO AUSCULTATION. PATIENT IN SR WITH PACS, HR IN THE 90S. SBP IN THE 90S. LEVOPHED INFUSING AT 20 MCG/ MINUTE TO KEEP MAPS 60 AND GREATER. SCHEDULED MIDODRINE BEING GIVEN. ABD SEVERELY DISTENDED, FIRM, WITH TYMPANIC BOWEL SOUNDS NOTED. PATIENT FIXATED ON HAVING A BOWEL MOVEMENT. PATIENT RECEIVING SCHEDULED LACTULOSE. ABD BINDER IN PLACE; PATIENT STATES HE HAS 2 HERNIAS. PATIENT ANURIC. FISTULA TO L ARM- NOT MATURE PER REPORT. SKIN JAUNDICED, FRAGILE, BRUISED. SCATTERED SCABS NOTED. HD CATH TO R CHEST. BED LOW, CALL LIGHT IN REACH. CARE CONTINUES.
[2023-09-10 10:10] LABS: Vancomycin, Random 21.5 ug/mL
--- NOTE | 2023-09-10 12:05 | NUR ---
PATIENT AFEBRILE. HR IN THE 90S. SBP 60S TO LOW 100S. LEVOPHED AT 19 MCG/ MINUTE. PATIENT AWAKE, TALKING AND ALERT AND ORIENTED WITH SBP IN THE 60S. PATIENT RECEIVING DIALYSIS AT THIS TIME. NO COMPLAINTS AT THIS TIME. CARE CONTINUES.
[2023-09-10 14:41] LABS: Hemoglobin 6.3 g/dL (13.5-17.5)
[2023-09-10 14:45] LABS: Hematocrit 17.9 % (37.0-53.0)
--- NOTE | 2023-09-10 16:14 | NUR ---
PATIENT AFEBRILE. HR IN THE 80S. SBP 90S TO LOW 100S. LEVOPHED AT 13 MCG/ MINUTE. PATIENT ON RA. NO COMPLAINTS. CARE CONTINUES.
--- NOTE | 2023-09-10 18:35 | NUR ---
SHIFT SUMMARY PATIENT REMAINED ALERT AND ORIENTED X 4, AFEBRILE. SPEECH SOFT. PATIENT HAS REMAINED CALM, PLEASANT, COOPERATIVE. PATIENT WEAK BUT ABLE TO MOVE EXTREMITIES AND HELP TURN IN BED. PATIENT HAS REMAINED SATTING 90% AND GREATER ON 2 L NC. PATIENT TRIALED ON RA BUT DESATTED DOWN TO 87%. PATIENT REMAINED SR WITH OCCASIONAL PACS. HR 70S TO 90S. SBP 60S TO LOW 100S. LEVOPHED HAS BEEN TITRATED DOWN FROM 20 TO 6 MCG/ MINUTE THIS SHIFT. VASOPRESSIN PLACED ON SB A COUPLE OF MINUTES AGO. PATIENT CONTINUED TO RECEIVE SCHEDULED MIDODRINE. ABD REMAINED SEVERELY DISTENDED, FIRM. NO BM THIS SHIFT. PATIENT CONTINUES TO RECEIVE SCHEDULED LACTULOSE. PATIENT ON SIPS AND CHIPS AND 1000 ML FLUID RESTRICTION. PATIENT HAS REMAINED ANURIC. NO CHANGES TO SKIN NOTED. PATIENT RECEIVED DIALYSIS THIS SHIFT. PATIENT RECEIVING 2 UNITS PRBCS FOR HEMOGLOBIN OF 6.3 AND HEMATOCRIT OF 17.9. PATIENT HAD COMPLETE BED BATH THIS SHIFT. DR. CUENCA CONSULTED ON PATIENT THIS SHIFT. PATIENT RECEIVED 2G CALCIUM CHLORIDE THIS SHIFT. BED LOW, CALL LIGHT IN REACH. NO COMPLAINTS AT THIS TIME. REPORT WILL BE GIVEN TO ASSUMING CAP MAKER NURSE SHORTLY.
--- NOTE | 2023-09-10 22:32 | NUR ---
ASSUMED CARE ASSUMED CARE AT 1900. PT A/O X 4. CALM AND COOPERATIVE WITH CARE. LEVOPHED AND ONE UNIT PRBC INFUSING. SECOND UNIT ORDERED. ORDER TO KEEP MAP GREATER THEN 60. OTHER VSS. SR RATE 80-90'S. CL TO R FEMORAL. ABD DISTENDED BUT SOFTER THEN PREVIOUS NIGHT. PT REPORTS FEELING BETTER AND DENIES ABD PAIN. ANURIC AT BASELINE. PT TOLERATING SIPS AND CHIPS. FLUID RESTRICTION IN PLACE.
[2023-09-11] VITALS (93 sets, daily range): BP systolic 67–105; BP diastolic 42–65
[2023-09-11 00:12] LABS: Hematocrit 20.6 % (37.0-53.0); Hemoglobin 7.1 g/dL (13.5-17.5)
[2023-09-11 04:10] LABS: BASOPHILS ABSOLUTE AUTO 0.01 K/mm3 (0.00-0.23); BASOPHILS PERCENT AUTO 0 % (0-2); EOSINOPHILS ABSOLUTE AUTO 0.14 K/mm3 (0.00-0.68); EOSINOPHILS PERCENT AUTO 1 % (0-6); Hematocrit 21.2 % (37.0-53.0); Hemoglobin 7.3 g/dL (13.5-17.5); IMMATURE GRAN ABSOLUTE AUTO 0.09 K/mm3 (0.00-0.10); IMMATURE GRAN PERCENT AUTO 1 % (0-1); LYMPHOCYTES ABSOLUTE AUTO 0.82 K/mm3 (0.84-5.20); LYMPHOCYTES PERCENT AUTO 8 % (21-46); MONOCYTES PERCENT AUTO 14 % (4-13); Mean Corpuscular HGB 33.6 pg (26.0-34.0); Mean Corpuscular HGB Conc 34.4 g/dL (31.5-36.5); NEUTROPHILS ABSOLUTE AUTO 8.16 K/mm3 (1.96-9.15); NEUTROPHILS PERCENT AUTO 76 % (41-73); RDW Coefficient Variation 24.6 % (11.7-14.2); RDW Standard Deviation 84.5 fL (35.1-46.3); Red Blood Cell Count 2.17 M/mm3 (4.30-5.90); White Blood Cell Count 10.72 K/mm3 (4.00-11.30)
[2023-09-11 04:11] LABS: Mean Corpuscular Volume 98 fL (80-100); Mean Platelet Volume 12.4 fL (9.1-12.4)
[2023-09-11 04:13] LABS: Platelet Count 25 K/mm3 (150-400)
[2023-09-11 04:23] LABS: Calcium, Blood 9.9 mg/dL (8.5-10.1); Creatinine, Blood 7.28 mg/dL (0.60-1.20); Potassium, Blood 4.4 mmol/L (3.5-5.5)
[2023-09-11 05:09] LABS: Magnesium, Blood 2.5 mg/dL (1.6-2.4); Phosphorus, Blood 7.9 mg/dL (2.5-4.9)
--- NOTE | 2023-09-11 11:00 | NUR ---
CARE OF PT ASSUMED AT 0700. PT AWAKE AND ALERT, DENIES C/O PAIN. NAUSEA. PT ON LEVOPHED AT 6MCG TO KEEP MAP BETWEEN 60-65. PT'S ABD DISTENDED W TYMPANIC, HYPERACTIVE BT'S. PT ON CLEAR LIQUID DIET W FLUID RESTRICTION; MCKAYLA CLEAR LIQUIDS WELL. NO HD SCHEDULED FOR TODAY. PERMACATH TO RIGHT SUBCLAV. GAUZE TAPED W BANDAIDS IN PLACE OVER PERMACATH, SOME DRIED BLOOD TO GAUZE; HD CALLED AND UPDATED REGARDING DRSG. HD RN WILL COME ASSESS THE DRSG SHORTLY.
[2023-09-11 16:39] LABS: Hematocrit 23.6 % (37.0-53.0); Hemoglobin 8.2 g/dL (13.5-17.5)
--- NOTE | 2023-09-11 18:42 | NUR ---
PT REMAINED ON LEVOPHED AT 6MCG FOR ENTIRE SHIFT TO KEEP MAP BETWEEN 60-65. PT TOLERATED CLEAR LIQUIDS TODAY AND DIET MAY BE ADVANCED TOMORROW PER DR VAZQUEZ; DR VAZQUEZ AND DR CUENCA IN TO SEE PT TODAY; FULL UPDATES GIVEN. REPEAT H&H AT 1600 STABLE, RESULTS GIVEN TO DR CUENCA. NO SIGNS OF ACTIVE BLEED. PT WAS ABLE TO PASS FLATUS TODAY, NO STOOLS. PT W/O COMPLAINTS T/O SHIFT. CUONGACATMonica CASTANONG CHANGED BY HARMAN RN TODAY.
--- NOTE | 2023-09-11 21:30 | NUR ---
ASSUMED CARE ASSUMED CARE AT 1900/ PT A/O X 4. CALM AND COOPERATIVE WITH CARE. WEAK BUT ABLE TO HELP TURN SIDE TO SIDE. LEVOPHED GTT INFUSING TO KEEP MAP GREATER THEN 60. SEE FLOWSHEET FOR TITRATIONS. OTHER VSS. SR 80-90'S. AFEBRILE. 2L NC. SPO2 GREATER THEN 92%. ABD REMAINS DISTENDED. PT C/O PRESSURE IN ABD. HEATING PAD APPLIED. CL TO R FEM. DRSG CHANGED. HD CATH TO R UPPER CHEST. DRSD C/D/I. CALL LIGHT IN REACH.
[2023-09-12] VITALS (94 sets, daily range): BP systolic 74–104; BP diastolic 32–65
--- NOTE | 2023-09-12 | NUR ---
UPDATE PT ABD INCREASINGLY DISTENDED AND FIRM. C/O OF INCREASING PAIN/PRESSURE. PT DECLINED PAIN MEDICATION. JOELLEN NOTIFIED. NO NEW ORDERS.
[2023-09-12 04:33] LABS: BASOPHILS PERCENT AUTO 0 % (0-2); EOSINOPHILS ABSOLUTE AUTO 0.18 K/mm3 (0.00-0.68); EOSINOPHILS PERCENT AUTO 1 % (0-6); Hematocrit 22.9 % (37.0-53.0); Hemoglobin 7.9 g/dL (13.5-17.5); IMMATURE GRAN ABSOLUTE AUTO 0.08 K/mm3 (0.00-0.10); IMMATURE GRAN PERCENT AUTO 1 % (0-1); LYMPHOCYTES ABSOLUTE AUTO 0.93 K/mm3 (0.84-5.20); LYMPHOCYTES PERCENT AUTO 7 % (21-46); MONOCYTES ABSOLUTE AUTO 1.94 K/mm3 (0.16-1.47); MONOCYTES PERCENT AUTO 15 % (4-13); Mean Corpuscular HGB 33.6 pg (26.0-34.0); Mean Corpuscular HGB Conc 34.5 g/dL (31.5-36.5); Mean Corpuscular Volume 97 fL (80-100); Mean Platelet Volume 11.5 fL (9.1-12.4); NEUTROPHILS PERCENT AUTO 76 % (41-73); RDW Coefficient Variation 24.3 % (11.7-14.2); RDW Standard Deviation 83.4 fL (35.1-46.3); Red Blood Cell Count 2.35 M/mm3 (4.30-5.90); White Blood Cell Count 12.93 K/mm3 (4.00-11.30)
[2023-09-12 05:21] LABS: Platelet Count 47 K/mm3 (150-400)
[2023-09-12 05:27] LABS: Magnesium, Blood 2.9 mg/dL (1.6-2.4)
[2023-09-12 05:32] LABS: Potassium, Blood 4.8 mmol/L (3.5-5.5)
[2023-09-12 05:35] LABS: Bun/Creatinine Ratio 12.3 (12.0-20.0); Creatinine, Blood 8.81 mg/dL (0.60-1.20)
--- NOTE | 2023-09-12 06:26 | NUR ---
SHIFT SUMMARY PT ABD CONTINUES TO BE SEVERELY AND INCREASINGLY DISTENDED. FIRM AND TENDER. PT DECLINED PAIN MEDS MULTIPLE TIMES. PT ALSO DECLINED FULL TURNS D/T PAIN BUT ALLOWED HIPS TO BE SHIFTED. LEOPHED GTT CONTINUES. VSS. NO BM THIS SHIFT. CALL LIGHT IN REACH. WILL REPORT OFF TO ONCOMING RN.
--- NOTE | 2023-09-12 11:00 | NUR ---
PT TAKEN TO XR FOR ABD XR VIA BED. PT IS A/O X4. ABLE TO ASSIST WITH TURNING IN BED. HAS DISCOMFORT IN HIS ABD BUT DECLINES PAIN MEDS. PT KNOWS THAT HE NEEDS A PARACENTESIS. HAS BT'S AND HAS HAD A BM. GETTING DIALYSIS NOW. TITRATING LEVOPHED SEE FLOWSHEET.
--- NOTE | 2023-09-12 15:32 | NUR ---
US HERE TO SET UP FOR PARACENTESIS.
[2023-09-12 17:04] LABS: Automated BF WBC Count 0.275 K/mm3 (0-999)
[2023-09-12 17:38] LABS: Body Fluid WBC Count 275 /mm3 (0-999)
[2023-09-12 17:53] LABS: RBC Count, Body Fluid 1710 /mm3 (0-0)
--- NOTE | 2023-09-12 19:19 | NUR ---
SUMMARY PT A/O X4 TODAY. USING CALL LIGHT APPROPRIATELY. PT HAD ABD XR TODAY, DIALYSIS, THEN PARACENTESIS. ONLY ABLE TO GET 3250 OFF WITH PARACENTESIS. PT STATES HE HAS SOME RELIEF OF DISCOMFORT IN STOMACH BUT NOT MUCH USUAL. HAS HAD 4 BM'S TODAY. ON LEVOPHED GTT, SEE FLOWSHEET FOR TITRATION. PT VOMITED TONIGHT AND UNABLE TO TAKE PO MEDS DESPITE ZOFRAN.
--- NOTE | 2023-09-12 19:23 | NUR ---
ASSUMED CARE OF PATIENT AT 1900. REPORT RECEIVED FROM AYAN RAZO. VSS AND NO ACUTE NEEDS IDENTIFIED AT THIS TIME. SEE SHIFT ASSESSMENT FOR FULL ASSESMENT DETAILS.
[2023-09-12 20:36] LABS: Appearance, Body Fluid Hazy (Clear); Color, Body Fluid Yellow (None-Yellow); Total Cell Count, Body Fluid 100
[2023-09-13] VITALS (83 sets, daily range): BP systolic 72–116; BP diastolic 38–66
[2023-09-13 03:33] LABS: BASOPHILS ABSOLUTE AUTO 0.01 K/mm3 (0.00-0.23); BASOPHILS PERCENT AUTO 0 % (0-2); EOSINOPHILS ABSOLUTE AUTO 0.23 K/mm3 (0.00-0.68); EOSINOPHILS PERCENT AUTO 2 % (0-6); Hematocrit 22.5 % (37.0-53.0); Hemoglobin 7.7 g/dL (13.5-17.5); IMMATURE GRAN ABSOLUTE AUTO 0.09 K/mm3 (0.00-0.10); IMMATURE GRAN PERCENT AUTO 1 % (0-1); LYMPHOCYTES ABSOLUTE AUTO 0.76 K/mm3 (0.84-5.20); LYMPHOCYTES PERCENT AUTO 6 % (21-46); MONOCYTES ABSOLUTE AUTO 1.79 K/mm3 (0.16-1.47); MONOCYTES PERCENT AUTO 15 % (4-13); Mean Corpuscular HGB 33.8 pg (26.0-34.0); Mean Corpuscular HGB Conc 34.2 g/dL (31.5-36.5); Mean Corpuscular Volume 99 fL (80-100); Mean Platelet Volume 12.5 fL (9.1-12.4); NEUTROPHILS ABSOLUTE AUTO 9.46 K/mm3 (1.96-9.15); NEUTROPHILS PERCENT AUTO 77 % (41-73); RDW Coefficient Variation 24.2 % (11.7-14.2); RDW Standard Deviation 83.9 fL (35.1-46.3); Red Blood Cell Count 2.28 M/mm3 (4.30-5.90); White Blood Cell Count 12.34 K/mm3 (4.00-11.30)
[2023-09-13 03:52] LABS: Platelet Count 49 K/mm3 (150-400)
[2023-09-13 04:03] LABS: Albumin, Blood 3.2 g/dL (3.4-5.0); Anion Gap 11 mmol/L (6-16); Blood Urea Nitrogen 71 mg/dL (8-24); Bun/Creatinine Ratio 11.6 (12.0-20.0); CO2, Blood 27 mmol/L (21-32); Calcium, Blood 9.7 mg/dL (8.5-10.1); Chloride, Blood 93 mmol/L (98-108); Creatinine, Blood 6.12 mg/dL (0.60-1.20); Glomerular Filtration Rate 10 (60-); Glucose, Blood 112 mg/dL (70-99); Magnesium, Blood 2.5 mg/dL (1.6-2.4); Phosphorus, Blood 7.3 mg/dL (2.5-4.9); Potassium, Blood 4.3 mmol/L (3.5-5.5); Sodium, Blood 131 mmol/L (136-145)
--- NOTE | 2023-09-13 05:31 | NUR ---
SHIFT SUMMARY PATIENT REMAINED ALERT AND ORIENTED X4 THROUGHOUT ENTIRETY OF SHIFT. HE WAS ABLE TO VERBALIZE NEEDS, FOLLOW VERBAL COMMANDS, AND MAKE PURPOSEFUL MOVEMENTS. DENIED PAIN AND REMAINED AFEBRILE. MONITOR SHOWED SR WITH HR IN 80'S. SBP IN 80'S-100'S. MEDICATED PER EMAR WITH LEVOPHED AND SCHEDULED MIDODRINE TO KEEP MAP GREATER THAN OR EQUAL TO 60 PER PARAMETERS IN CHART. ON 2LPM O2 VIA NC WITH SATURATIONS AT >95%. PATIENT HAD 3 LOOSE BM'S THIS SHIFT - LACTULOSE HELD. PATIENT ALSO HAD 3 EPISODES OF EMESIS. ABD TENDER WITH MODERATE DISTENTION. PT IS ANURIC. FISTULA TO L ARM THAT IS NOT MATURE. PIV TO EDY THAT FLUSHES AND DRAWS WELL. CENTRAL LINE TO R FEM INFUSING LEVOPHED AT 12 MCG/MIN. WILL CONTINUE TO MONITOR AND REPORT TO ONCOMING NURSE.
--- NOTE | 2023-09-13 07:00 | NUR ---
ASSUMPTION OF CARE PT RECEIVING LEVOPHED 12MCG/MIN. VASOPRESSIN ON STANDBY. HE IS ALERT AND ORIENTED WITH PLEASANT AFFECT. PT EXPRESSES FIXATION ON ELIMINATING SALT FROM HIS DIET AND THAT HE IS HAVING FREQUENT/LARGE BOWEL MOVEMENTS. HE IS ON 2L NC WITH SPO2 >93%. ABDOMEN IS DISTENDED AND FIRM. PER PT, HIS ABDOMEN "FEELS 100% BETTER THAN YESTERDAY". BOWEL TONES HYPOACTIVE. PT IS ANURIC. HE REQUESTS TO MAINTAIN SUPINE POSITION. BED IN LOW POSITION WITH CALL LIGHT. HOSPITALIST ROUNDED THIS AM. DISCUSSION REGARDING FEMORAL CENTRAL LINE RESTRICTING ACTIVITY. CENTRAL LINE INDICATED DUE TO VASOPRESSORS, UNABLE TO USE ALTERNATIVE SITES DUE TO DIALYSIS AND FISTULA.
--- NOTE | 2023-09-13 11:05 | NUR ---
ASSUMPTION OF CARE ASSUMED CARE OF PATIENT. AGREE WITH AM ASSESSMENT BY MOUNIKA Mckeon RN. PATIENT ALERT AND ORIENTED X 4, AFEBRILE. PATIENT CALM, PLEASANT AND COOPERATIVE. PATIENT WEAK BUT ABLE TO MOVE ALL EXTREMITIES AND HELP WITH REPOSITIONING. PATIENT SATTING 90% AND GREATER ON 2 L NC. PATIENT IN SR, HR IN THE 80S. SBP IN THE LOW 100S. LEVOPHED INFUSING AT 12 MCG/ MINUTE. VASOPRESSIN TURNED ON AT 0.04 UNITS/ MINUTE. GOAL IS TO KEEP MAPS 55 AND GREATER. PATIENT RECEIVING SCHEDULED MIDODRINE. ABD SEVERELY DISTENDED, FIRM, HYPOACTIVE BOWEL SOUNDS NOTED. PATIENT STATES HE HAS 2 HERNIAS. PATIENT STATES HE IS ANURIC FROM DIALYSIS. SKIN IS FRAGILE, BRUISED, JAUNDICED. SCATTERED BRUISES AND SCABS ALL OVER BODY. IMMATURE FISTULA TO LEFT ARM: + BRUIT AND THRILL. HD CATH TO R CHEST. CL TO R FEMORAL SITE. NO COMPLAINTS AT THIS TIME. BED LOW, CALL LIGHT IN REACH. CARE CONTINUES.
--- NOTE | 2023-09-13 16:00 | NUR ---
PATIENT AFEBRILE. HR IN THE 70S. SBP OM TJE 90S. VASOPRESSIN INFUSING. LEVOPHED INFUSING AT 4 MCG/ MINUTE. NO COMPLAINTS. NO OTHER ACUTE CHANGES TO NOTE ON AT THIS TIME. CARE CONTINUES.
--- NOTE | 2023-09-13 17:05 | NUR ---
SPOKE TO DR. EVANS ABOUT IV NUTRITION FOR PATIENT. NO ORDERS RECEIVED AT THIS TIME.
--- NOTE | 2023-09-13 18:17 | NUR ---
SHIFT SUMMARY PATIENT REMAINED ALERT AND ORIENTED X 4, AFEBRILE. PATIENT REMAINED CALM, COOPERATIVE AND PLEASANT. PATIENT HAD NO COMPLAINTS OF PAIN THIS SHIFT. PATIENT REMAINED WEAK BUT ABLE TO MOVE ALL EXTREMITIES AND ASSIST WITH TURNS. PATIENT REMAINED SATTING 90% AND GREATER ON 2 L NC. PATIENT REMAINED IN SR, HR 70S TO LOW 100S. SBP 70S TO LOW 100S. LEVOPHED MAX AT 12 MCG/ MINUTE AND CURRENTLY AT 4 MCG/ MINUTE. VASOPRESSIN TURNED OFF THIS SHIFT, RESTARTED AND THEN PLACED BACK ON SB MAPS GREATER THAN 55. PATIENT CONTINUED TO RECEIVE SCHEDULED MIDODRINE. PATIENT HAD 2 LOOSE BMS THIS SHIFT; SCHEDULED LACTULOSE BEING GIVEN. LAST BM XL IN SIZE. PATIENT REMAINED ANURIC. NO CHANGES TO SKIN NOTED. NO COMPLAINTS AT THIS TIME. BED LOW, CALL LIGHT IN REACH. REPORT WILL BE GIVEN TO ASSUMING CAR WASH ATTENDANT NURSE SHORTLY.
--- NOTE | 2023-09-13 19:15 | NUR ---
ASSUMPTION OF CARE: RECEIVED REPORT FROM RUPA BOTELLO. PT ALERT AND ORIENTED TO TIME, PERSON, PLACE AND SITUATION. PLEASANT AND COOPERATIVE WITH ALL CARE. ABLE TO ANSWER QUESTIONS AND MAKE NEEDS KNOWN. PT DENIES ANY PAIN T/O BODY. ON 2L NC WITH SATS >94%. DENIES SOB. LUNG SOUNDS CLEAR IN UPPERS AND DIM IN BASES. CARDIAC MONITORING IN PLACE SHOWS SINUS RHYTHM WITH RATE IN THE 80'S. DENIES CHEST PAIN OR PRESSURE. LEVOPHED INFUSING AT 4 MCG/MIN TO MAINTAIN MAP >55. ABDOMEN FIRM, BUT PT STATES NO PAIN. CENTRAL LINE TO RIGHT GROIN, INFUSING MEDICATION. FLUSHES AND DRAWS WELL WITH NO ISSUES. ABLE TO TOLERATE PO MEDICATION WITH APPLESAUCE AND SIPS OF WATER. PT ABLE TO REPOSITION IN THE BED WITH MODERATE ASSISTANCE. CALL LIGHT IN REACH. SEE SHIFT ASSESSMENT FOR FULL ASSESSMENT.
[2023-09-14] VITALS (80 sets, daily range): BP systolic 68–103; BP diastolic 37–63
[2023-09-14 03:58] LABS: Hematocrit 21.7 % (37.0-53.0); Hemoglobin 7.4 g/dL (13.5-17.5)
[2023-09-14 04:35] LABS: Magnesium, Blood 2.8 mg/dL (1.6-2.4)
[2023-09-14 04:45] LABS: Albumin, Blood 3.2 g/dL (3.4-5.0); Anion Gap 13 mmol/L (6-16); Blood Urea Nitrogen 89 mg/dL (8-24); Bun/Creatinine Ratio 11.8 (12.0-20.0); CO2, Blood 24 mmol/L (21-32); Calcium, Blood 9.7 mg/dL (8.5-10.1); Chloride, Blood 92 mmol/L (98-108); Creatinine, Blood 7.57 mg/dL (0.60-1.20); Glomerular Filtration Rate 8 (60-); Glucose, Blood 89 mg/dL (70-99); Phosphorus, Blood 8.1 mg/dL (2.5-4.9); Potassium, Blood 4.5 mmol/L (3.5-5.5); Sodium, Blood 129 mmol/L (136-145)
--- NOTE | 2023-09-14 06:17 | NUR ---
SHIFT SUMMARY: PT REMAINS ALERT AND ORIENTED TO TIME, PERSON, PLACE AND SITUATION. PT ABLE TO REST OFF AND ON T/O THE SHIFT. NASAL CANNULA 2L, WITH SATS MAINTAINING >94%. DENIES SOB. CARDIAC MONITORING IN PLACE SHOWS SINUS RHYTHM WITH RATE 90'S-100'S. LEVOPHED REMAINS AT 4 MCG/MIN TO MAINTAIN MAP >55. DENIES CHEST PAIN OR PRESSURE T/O THE SHIFT. ABDOMEN MORE DISTENDED AND TENDER T/O THE SHIFT. CENTRAL LINE TO RIGHT GROIN INFUSING. ABLE TO REPOSITION IN THE BED WITH MODERATE ASSIST. TOLERATES PO MEDICATION WELL WITH SIPS OF WATER. NO BM THIS SHIFT. NO VOID THIS SHIFT. CALL LIGHT WITHIN REACH.
--- NOTE | 2023-09-14 08:00 | NUR ---
INITIAL ASSESSMENT PATIENT ALERT AND ORIENTED X 4, AFEBRILE. PATIENT CALM, PLEASANT AND COOPERATIVE. PATIENT WEAK BUT ABLE TO MOVE ALL EXTREMITIES AND ASSIST WITH REPOSITIONING. PATIENT DENIES PAIN. PATIENT SATTING 90% AND GREATER ON 2 L NC. PATIENT IN SR TO ST, HR 80S TO LOW 100S. SBP 80S TO 90S. SCHEDULED MIDODRINE BEING GIVEN. PATIENT ON LEVOPHED AT 4 MCG/ MINUTE. MAPS TO BE KEPT 55 AND GREATER. ABD SEVERLEY DISTENDED, FIRM, TENDER, WITH HYPOACTIVE BOWEL SOUNDS NOTED. PATIENT ON SIPS AND CHIPS. PATIENT ANURIC. IMMATURE FISTULA TO LEFT ARM- + BRUIT AND THRILL NOTED. HD CATH TO R CHEST. SCATTERED SCABS AND BRUISES NOTED. BED LOW, CALL LIGHT IN REACH. WILL CONTINUE TO MONITOR THROUGHOUT SHIFT.
--- NOTE | 2023-09-14 11:01 | NUR ---
Pt resting in bed receiving dialysis upon arrival. Engaged in therapeutic conversation. Pt reports not being and lives with a room mate. He reports being independent at baseline. Attempted to discuss the importance of planning for the future with Pt reporting several staff members have spoken with him in regards to his prognosis. He reports that he will survive this hospital stay. Continued therapeutic discussion. Pt appears to be in denial with some poor insight to his current condition. Ended visit. Palliative Care will remain available
--- NOTE | 2023-09-14 12:40 | NUR ---
PATIENT AFEBRILE. HR IN THE 80S. SBP IN THE 90S. LEVOPHED AT 14 MCG/ MINUTE. PATIENT 1 L NC TO KEEP SATS 90% AND GREATER. NO COMPLAINTS. NO OTHER ACUTE CHANGES TO NOTE ON AT THIS TIME. CARE CONTINUES.
--- NOTE | 2023-09-14 13:01 | NUR ---
PATIENT HAD 20 BEAT RUN OF VTACH FOLLOWED BY 12 BEAT RUN OF VTACH. PATIENT REMAINED ASYMPTOMATIC. DR. EVANS INFORMED. NO ORDERS RECEIVED AT THIS TIME.
--- NOTE | 2023-09-14 16:30 | NUR ---
PATIENT AFEBRILE. HR 80S TO LOW 100S. SBP 90S TO LOW 100S. LEVOPHED AT 10 MCG/ MINUTES. VASOPRESSIN REMAINS ON. NO OTHER ACUTE CHANGES TO NOTE ON AT THIS TIME. CARE CONTINUES.
--- NOTE | 2023-09-14 19:00 | NUR ---
SHIFT SUMMARY PATIENT REMAINED ALERT AND ORIENTED X 4, AFEBRILE. PATIENT HAD NO COMPLAINTS OF PAIN THIS SHIFT. PATIENT REMAINED CALM, PLEASANT AND COOPERATIVE. PATIENT REMAINED WEAK BUT ABLE TO MOVE ALL EXTREMITIES AND HELP WITH REPOSITIONING AND BED GOODEN. PATIENT DECREASED FROM 2 L NC TO 1 L NC AND REMAINED SATTING 90% AND GREATER. PATIENT IN SR TO ST WITH PACS, HR 70S TO 1-TEENS. PATIENT HAD EPISODE OF ASYMPTOMATIC VTACH THIS SHIFT. SBP 60S TO LOW 100S. LEVOPHED MAX OF 14 MCG/ MINUTES AND VASOPRESSIN TURNED ON DURING DIALYSIS. LEVOPHED AT 4 MCG/ MINUTE THIS AM. LEVOPHED CURRENTLY AT 10 MCG/ MINUTE AND LEVOPHED BACK ON SB. PATIENT REMAINED ON SIPS AND CHIPS. PATIENT HAD MULTIPLE LOOSE STOOLS. LACTULOSE HELD THIS SHIFT. PATIENT REMAINED ANURIC. NO CHANGES TO SKIN NOTED. PATIENT REFUSED BED BATH BUT DID ALLOW LINEN CHANGE, SHAMPOO AND HAIR BRUSH. BED LOW, CALL LIGHT IN REACH. REPORT WILL BE GIVEN TO ONCOMING TELEVISION AND RADIO REPAIRER NURSE SHORTLY.
--- NOTE | 2023-09-14 19:06 | NUR ---
REPORT GIVEN TO ASSUMING SUPERINTENDENT PRODUCTION NURSE.
--- NOTE | 2023-09-14 19:15 | NUR ---
ASSUMPTION OF CARE: RECEIVED REPORT FROM RUPA BOTELLO. PT ALERT AND ORIENTED TO TIME, PERSON, PLACE AND SITUATION. PLESANT AND COOPERATIVE WITH CARE AND ABLE TO ANSWER ALL QUESTIONS. ON 2L OXI MASK PER PT REQUEST FOR COMFORT. SPO2 >92% WITH NO C/O SOB. CARDIAC MONITORING IN PLACE SHOWS SINUS RHYTHM WITH PERIODS OF AFIB. HR RANGING FROM 80'S-110'S. LEVOPHED INFUSING AT 10 MCG/MIN TO MAINTAIN MAP >55. DENIES CHEST PAIN OR PRESSURE. ABDOMEN DISTENDED BUT PT DENIES ANY DISCOMFORT WITH PALPATION. ABLE TO TOLERATE PO MEDS WITH SIPS OF WATER AND APPLESAUCE. REPOSITIONS IN THE BED WITH MINIMAL ASSIST. CALL LIGHT IN REACH.
[2023-09-14 22:23] LABS: Albumin, Blood 3.8 g/dL (3.4-5.0); Albumin/Globulin Ratio 1.5 (0.8-1.8); Bilirubin, Total 8.2 mg/dL (0.1-1.0); Bun/Creatinine Ratio 10.3 (12.0-20.0); Calcium, Blood 9.2 mg/dL (8.5-10.1); Creatinine, Blood 4.86 mg/dL (0.60-1.20); Globulin, Blood 2.5 g/dL (2.2-4.0); Magnesium, Blood 2.4 mg/dL (1.6-2.4); Phosphorus, Blood 5.4 mg/dL (2.5-4.9); Potassium, Blood 3.8 mmol/L (3.5-5.5); Total Protein, Blood 6.3 g/dL (6.4-8.2)
[2023-09-15] VITALS (79 sets, daily range): BP systolic 66–100; BP diastolic 35–60
[2023-09-15 04:00] LABS: Hematocrit 19.2 % (37.0-53.0); Hemoglobin 6.6 g/dL (13.5-17.5)
[2023-09-15 04:25] LABS: Albumin, Blood 3.6 g/dL (3.4-5.0); Anion Gap 9 mmol/L (6-16); Blood Urea Nitrogen 58 mg/dL (8-24); Bun/Creatinine Ratio 11.1 (12.0-20.0); CO2, Blood 27 mmol/L (21-32); Calcium, Blood 9.1 mg/dL (8.5-10.1); Chloride, Blood 93 mmol/L (98-108); Creatinine, Blood 5.22 mg/dL (0.60-1.20); Glomerular Filtration Rate 12 (60-); Glucose, Blood 116 mg/dL (70-99); Magnesium, Blood 2.5 mg/dL (1.6-2.4); Phosphorus, Blood 5.5 mg/dL (2.5-4.9); Potassium, Blood 3.8 mmol/L (3.5-5.5); Sodium, Blood 129 mmol/L (136-145)
--- NOTE | 2023-09-15 06:07 | NUR ---
SHIFT SUMMARY: PT CONTINUES TO REMAIN ALERT AND ORIENTED TO PERSON, PLACE, TIME AND SITUATION. ABLE TO REST ON AND OFF T/O THE SHIFT. 2L OXI MASK PER PT REQUEST FOR COMFORT. SPO2 >94%. DENIES SOB. CARDIAC MONITORING IN PLACE, SINUS RHYTHM WITH PERIODS OF SINUS TACH AND AFIB. HR 80'S-110'S. DENIES CHEST PAIN OR PRESSURE. LEVOPHED INFUSING AT 10 MCG/MIN TO MAINTAIN MAP >55 PER ORDERS. NO BM YET THIS SHIFT. ABDOMEN FIRM AND SLIGHTLY TENDER UPON PALPATION. ANURIC T/O THE SHIFT. CENTRAL LINE TO RIGHT GROIN, PATENT AND INFUSING. ABLE TO TOLERATE PO MEDS WITH NO ISSUES. CALL LIGHT IN REACH.
--- NOTE | 2023-09-15 08:39 | NUR ---
[place] of Care: Care assumed at 0700hr, bedside report received from NOC RN. Patient sleeping, easily roused to verbal stimuli. Alert and oriented x4. Denies pain other than general discomfort to ABD r/t severe distention (ascites), patient requesting drainage of fluid. Will discuss ordering paracentesis with hospitalist this morning. VSS, spO2 96-97% on 2L oximask. Levophed gtt infusing at 10mcg/min, will titrate down throughout morning. Discussed levophed gtt and patient's baseline BP with Dr. Lopez this morning. Patient has low BP at baseline, and suspected that levophed gtt is not providing much or any benefits. Central line to rt groin patent and intact, small amount of dried blood drainage under dressing, will change dressing today. Permacath to rt upper chest, site appears wnl. Dr. Sebastian to bedside this morning, no plan for dialysis today, received order for 1u PRBC's due to low H+H. Type and screen sent to lab this morning. Call light in reach, makes needs known. Will continue to monitor.
--- NOTE | 2023-09-15 18:05 | NUR ---
Shift Summary: No significant changes throughout the day. Levophed gtt titrated down from 10mcg to standby throughout morning/mid-day. MAP's held in the 50's throughout, but decreased to 40's approx 1hr after stopping levophed gtt. Levophed gtt now back on at 4mcg/min, MAPs back in the 50's. All other VSS throughout shift. Patient refusing food throughout shift, stating that he was "not hungry". Paracentesis this afternoon at bedside with Dr. Dallas, approx 5.5L off, patient states to feel "much better" in regard to his ABD discomfort. Patient refusing turns throughout shift, wishing to remain supine. Call light in reach, makes needs known. Received call from Key Operator at [facility] this afternoon. Informed patient is not a candidate for liver and kidney transplant r/t the likelyhood of unsuccessful transplant, leading to . Patient not yet informed as [facility] staff will place call to patient. Received permission to inform patient if he inquires.
--- NOTE | 2023-09-15 19:00 | NUR ---
ASSUMED CARE OF PT AT 1900 PT RESTING IN BED, NO VISITORS AT BEDSIDE DURING BEDSIDE SHIFT REPORT. PT C/O NEEDING TO USE BED GOODEN AT THIS TIME. B/P VERY SOFT WITH MAP BETWEEN 55-60. OTHER VITALS STABLE AT THIS TIME. 1 [address]PM [address] SUP IN PLACE WITH SPO2 >90%. SEE FULL ASSESSMENT FOR FURTHER INFORMATION.
[2023-09-16] VITALS (83 sets, daily range): BP systolic 66–96; BP diastolic 37–51
[2023-09-16 04:17] LABS: Hemoglobin 7.6 g/dL (13.5-17.5)
[2023-09-16 04:36] LABS: Albumin, Blood 3.9 g/dL (3.4-5.0); Anion Gap 10 mmol/L (6-16); Blood Urea Nitrogen 75 mg/dL (8-24); Bun/Creatinine Ratio 10.7 (12.0-20.0); CO2, Blood 25 mmol/L (21-32); Calcium, Blood 9.6 mg/dL (8.5-10.1); Chloride, Blood 94 mmol/L (98-108); Creatinine, Blood 6.99 mg/dL (0.60-1.20); Glomerular Filtration Rate 8 (60-); Glucose, Blood 92 mg/dL (70-99); Magnesium, Blood 2.6 mg/dL (1.6-2.4); Phosphorus, Blood 7.2 mg/dL (2.5-4.9); Potassium, Blood 3.9 mmol/L (3.5-5.5); Sodium, Blood 129 mmol/L (136-145)
--- NOTE | 2023-09-16 06:24 | NUR ---
END OF SHIFT SUMMARY PT DID NOT REST MOST OF THE NIGHT. CONSTANT URGE TO HAVE BM WITH ONLY ONE BM ACHIEVED AT BEGINING OF SHIFT. C/O WORSENING PAIN, MEDICATED PER EMAR AFTER CALL TO DR. CUELLO 4 MCG ENTIRE SHIFT WITH CONSISTANT RANGE OF MAP >55% NO OTHER ACUTE CHANGES TO REPORT THIS SHIFT. WILL CONTINUE TO MONITOR UNTIL REPORT GIVEN TO DAY RN.
--- NOTE | 2023-09-16 12:21 | NUR ---
REASSESSMENT PT RECEIVED DIALYSIS THIS AM. HE REQUIRED LEVOPHED TO BE INCREASED TO 14 MCG/MIN TO KEEP MAP ABOVE 55. ABOUT 30 MINUTES AFTER IT FINSISHED PT VOMITED 1200ML OF DARK BROWN FLUID. PT IS RESTING CURRENTLY. LUNGS ARE CLEAR, OXYGEN TITRATED OFF AND SPO2 96% ON RA. SR. ABDOMEN DISTENDED, BOWEL TONES ACTIVE. PT HAD 1 SM LIQUID BM, HAS GOTTEN ON THE BEDPAN SEVERAL TIMES TO PASS GAS. CONTINUING TO MONITOR.
--- NOTE | 2023-09-16 17:28 | NUR ---
SHIFT SUMMARY PT HAD DIALYSIS THIS MORNING AND HAS CONTINUED TO REQUIRE AN INCREASED DOSE OF LEVOPEHD TO MAINTAIN HIS MAP ABOVE 55. HR REMAINS SINUS AND IN THE 90S. HIS NAUSEA PERSISTED SO HE WASN'T ABLE TO TAKE HIS NOON MIDODRINE. HE TOOK HIS EVENING DOSE, BUT IS USNURE IF HE WILL BE ABLE TO KEEP IT DOWN. ZOFRAN GIVEN. LUGNS ARE CLEAR AND PT REMAINS ON RA. HE REFUSED MOST TURNS TODAY BECAUSE HE WASN'T FEELING WELL. HE HAD 2 SMALL BMS. CONTINUING TO MONITOR.
[2023-09-17] VITALS (78 sets, daily range): BP systolic 63–100; BP diastolic 39–66
[2023-09-17 04:26] LABS: Hematocrit 23.2 % (37.0-53.0); Hemoglobin 7.9 g/dL (13.5-17.5)
[2023-09-17 04:41] LABS: Albumin, Blood 4.4 g/dL (3.4-5.0); Anion Gap 11 mmol/L (6-16); Blood Urea Nitrogen 47 mg/dL (8-24); Bun/Creatinine Ratio 9.3 (12.0-20.0); CO2, Blood 26 mmol/L (21-32); Calcium, Blood 9.6 mg/dL (8.5-10.1); Chloride, Blood 98 mmol/L (98-108); Creatinine, Blood 5.04 mg/dL (0.60-1.20); Glomerular Filtration Rate 13 (60-); Glucose, Blood 126 mg/dL (70-99); Magnesium, Blood 2.5 mg/dL (1.6-2.4); Phosphorus, Blood 4.9 mg/dL (2.5-4.9); Potassium, Blood 3.7 mmol/L (3.5-5.5); Sodium, Blood 135 mmol/L (136-145)
--- NOTE | 2023-09-17 06:29 | NUR ---
END OF SHIFT SUMMARY PT DID NOT REST WELL AGAIN THIS SHIFT. ABLE TO USE CALL LIGHT APPROPRIATELY. MAKES NEEDS KNOWN. RESP- DESATS TO UPPER 80'S WHEN SLEEPING. PT IS NOT COMFORTABLE WITH HEAD OF BED LIFTED D/T ASCIDES. CARDIAC- MANY ECTOPY EPISODES THROUGHOUT SHIFT. V-TACH, BRIEF TACHYCARDIA (HR UP TO 200) EPISODES, (SEE SAVED INSTRUCTIONAL DEVELOPER STRIPS IN COMP SYSTEM. GI,- PT STILL REFUSING MEDICATIONS D/T STOMACH UPSET. PT WILL NOT REFUSE MEDICATIONS IF HE CAN TAKE IT WITH LACTULOSE. NO BM THIS SHIFT ASIDE FROM THE MANY ATTEMPTS OF USING BED GOODEN. NO OTHER ACUTE CHANGES THIS SHIFT. WILL CONTINUE TO MONITOR UNTIL REPORT GIVEN TO AM RN.
--- NOTE | 2023-09-17 09:19 | NUR ---
GOALS OF CARE EXTENSIVE DISCUSSION HAD WITH DR VAZQUEZ, DR OMALLEY, AND DR GARCIA ABOUT GOALS OF CARE. PT REQUESTS TO CONTINUE TO BE A FULL CODE DESPITE POOR PROGNOSIS AND CONTINUED HYPOTENSION. THE CURRENT GOAL OF CARE IS TO ATTEMPT TO WEAN PT OFF OF LEVOPHED DESPITE CONTINUED LOW BP'S. LEVOPHED TO BE TITRATED OFF LONG PT REMAINS ASYMPTOMATIC, IN AN EFFORT TO EVENTUALLY REMOVE FEMORAL CENTRAL LINE. DR OMALLEY AND DR VAZQUEZ STATE THEY ARE NOT CONCERNED WITH BP READINGS, LEVOPHED TITRATED OFF AND EXPLAINED TO PT RISKS OF CONTINUED PROFOUND HYPOTENSION. LEVOPHED CURRENTLY AT 4 MCG/MIN. MAP 55. WILL TITRATE OFF LEVOPHED ORDERED.
--- NOTE | 2023-09-17 17:38 | NUR ---
SHIFT SUMMARY NO ACUTE CHANGES THIS SHIFT. PT HAS REMAINED ALERT AND ORIENTED WHEN AWAKE. PT SPEECH IS SOFT. PT IS ABLE TO MAKE NEEDS KNOWN AND ANSWERS QUESTIONS APPROPRIATELY. PT REMAINS ON ROOM AIR. LEVOPHED TITRATED OFF THIS MORNING. SBP 60-70'S AND MAP 50-65. PT HAS REMAINED ASYMPTOMATIC DESPITE CONTINUOUS HYPOTENSION. PT HAS CONTINUED TO HAVE ECTOPY WITH NON SUSTAINED RUNS OF TACHYCARDIA THROUGHOUT THE SHIFT. PT HAS CONTINUED TO COMPLAIN OF NAUSEA AND "FEELING FULL." PT WITH POOR APETITE THIS SHIFT. PT TAKING MINIMAL PO INTAKE WITH MEDS ONLY. CENTRAL LINE TO RIGHT FEMORAL SITE REMAINS C/D/I WITH NS INFUSING TKO. PERMACATH TO RIGHT CHEST REMAINS INTACT. PT ABLE TO ASSIST WITH TURNS AND SHIFTS SELF FOR COMFORT. MULTIPLE PT FRIENDS AND FAMILY MEMBERS IN TO SEE PT THROUGHOUT THE SHIFT. WILL CONTINUE TO MONITOR AND REPORT OFF TO ONCOMING RN.
--- NOTE | 2023-09-17 19:53 | NUR ---
ASSUMED CARE PT IS A&O X4; SPO2 >92% ON RA; MAP >55; HR IN 120'S. PT DENIES CP AND SOB. COMPLAINING OF NAUSEA; DR SRIVASTAVA CALLED W/ ORDERS TO BE PUT IN. PT STATES HE FEELS "RELATIVELY" OK, ONLY COMPLAINT IS NAUSEA AND TENDERNESS IN UPPER QUADRANTS OF ABDOMEN. UPPER ABDOMINAL QUADRANT IS FIRM BILATERALLY.
--- NOTE | 2023-09-17 21:58 | NUR ---
UPDATE PT COMPLAINING OF CONTINUED ABDOMINAL PAIN. STATES THAT UPPER ABDOMINAL DISTENTION "FEELS" BIGGER TO PT. APPEARS SLIGHTLY BIGGER TO THIS RN, BUT DIFFICULT TO TELL DISTENTION HAS NOT MARKEDLY INCREASED. DR SRIVASTAVA CALLED W/ ORDERS FOR ABDOMINAL XRAY 2V SUPINE AND LATERAL DECUBITUS.
--- NOTE | 2023-09-17 23:34 | NUR ---
UPDATE PT TRANSFERRED TO ICU 07 W/ BELONGINGS/MEDS.
[2023-09-18] VITALS (96 sets, daily range): BP systolic 44–111; BP diastolic 31–90
--- NOTE | 2023-09-18 01:00 | NUR ---
UPDATE DR ROSS CALLED THIS RN TO GET ABDOMINAL CT W/O CONTRAST D/T ABDOMINAL XRAY LOOKING "WORSE".
--- NOTE | 2023-09-18 02:20 | NUR ---
UPDATE NG TUBE INSERTED W/ LARGE AMOUNT OF GASTRIC FLUID SUCTIONED OUT (SEE INTAKE/OUTPUT). PT NO LONGER COMPLAINING OF NAUSEA/PAIN AT TIME OF THIS NOTE. SET TO LOW INTERMITTENT SUCTION.
--- NOTE | 2023-09-18 03:00 | NUR ---
UPDATE PT PULLED OUT NG TUBE. EDUCATED PT ON IMPORTANCE OF TUBE AND PT STATED HE'LL "TRY" NOT TO PULL NEXT TIME. DR ROSS NOTIFIED W/ OK TO WAIT (PT WAS SLEEPING WELL). OK TO HOLD LACTULOSE AND GIVE MIDODRINE FOR 0600 MEDS.
[2023-09-18 03:26] LABS: Hematocrit 22.1 % (37.0-53.0); Hemoglobin 7.4 g/dL (13.5-17.5); Mean Corpuscular HGB 34.3 pg (26.0-34.0); Mean Corpuscular HGB Conc 33.5 g/dL (31.5-36.5); Mean Corpuscular Volume 102 fL (80-100); Platelet Count 90 K/mm3 (150-400); RDW Coefficient Variation 25.1 % (11.7-14.2); RDW Standard Deviation 93.8 fL (35.1-46.3); Red Blood Cell Count 2.16 M/mm3 (4.30-5.90); White Blood Cell Count 16.87 K/mm3 (4.00-11.30)
[2023-09-18 03:46] LABS: Albumin, Blood 4.2 g/dL (3.4-5.0); Anion Gap 19 mmol/L (6-16); Blood Urea Nitrogen 67 mg/dL (8-24); Bun/Creatinine Ratio 9.9 (12.0-20.0); CO2, Blood 16 mmol/L (21-32); Calcium, Blood 10.4 mg/dL (8.5-10.1); Chloride, Blood 99 mmol/L (98-108); Creatinine, Blood 6.76 mg/dL (0.60-1.20); Glomerular Filtration Rate 9 (60-); Glucose, Blood 88 mg/dL (70-99); Magnesium, Blood 2.6 mg/dL (1.6-2.4); Phosphorus, Blood 7.1 mg/dL (2.5-4.9); Potassium, Blood 4.1 mmol/L (3.5-5.5); Sodium, Blood 134 mmol/L (136-145)
[2023-09-18 03:58] LABS: BAND PERCENT MAN 1 % (0-8); BASOPHILS PERCENT MAN 0 % (0-2); EOSINOPHILS PERCENT MAN 0 % (0-6); LYMPHOCYTES ABSOLUTE MAN 0.84 K/mm3 (0.84-5.20); LYMPHOCYTES PERCENT MAN 5 % (21-46); MONOCYTES ABSOLUTE MAN 1.18 K/mm3 (0.16-1.47); MONOCYTES PERCENT MAN 7 % (4-13); MYELOCYTE ABSOLUTE MAN 0.16 K/mm3 (0.00-0.00); MYELOCYTE PERCENT MAN 1 % (0-0); NEUTROPHILS ABSOLUTE MAN 14.67 K/mm3 (1.96-9.15); SEG NEUTROPHILS PERCENT MAN 86 % (41-73); TOTAL CELLS COUNTED 100
--- NOTE | 2023-09-18 06:11 | NUR ---
SHIFT SUMMARY PT CONTINUES TO BE A&O X4; SPO2 >92% ON RA; MAP >55 (LEVO RE-INITIATED; SEE FLOWSHEET); HR IN THE 100-110'S W/ UNSUSTAINED TACHY EPISODES. PT CONTINUES TO DENY CP, SOB, AND NAUSEA. NO ACUTE EVENTS SINCE LAST NOTE.
--- NOTE | 2023-09-18 12:23 | NUR ---
ASSUMED CARE OF PT AT 0700, HE HAS BEEN COOPERATIVE WITH HIS CARE. CARDIOVAS- CULAR ASSESSMENT CONTINUES TO BE UNCONTROLLED, HE HAS BEEN MEDICATED WITH FLUID BOLUS, INCREASE IN NOREPINEPHRINE (CURRENTLY @ 10MCG), IV CARDIZEM AND DIGOXIN GIVEN. PRIOR TO DIALYSIS STARTING HE WAS ABLE TO USE VALSALVA MANEU- VERS TO CONTROL HIS HEART WHEN HE WOULD BOUNCE TO >150. UPON DIALYSIS WAS WHEN HE WAS SUSTAINING HR IN THE 180S AND TREATMENT WAS GIVEN. HE CURRENTLY IS RUNNING <150, BP REMAINS LABILE WITH ATTEMPTS TO MAINTAIN MAP >50. NGT WAS REPLACED BY DARWIN, PHYSICAL THERAPIST AIDE WITH RADIOGRAPH COMPLETED. LARGE RETURN ONCE PLACED TO LIS. AT BEDSIDE. MULTIPLE ATTEMPTS TO TALK WITH PATIENT ABOUT QUALITY OF LIFE MEASURES AND END OF LIFE CARE, HE CONTINUES TO REMAIN ADAMANT THAT HE WANTS ALL MEASURES, HE IS "NOT READY TO GIVE UP YET".
--- NOTE | 2023-09-18 14:15 | NUR ---
CASE CONFERENCE: Spoke to pt's sister, [id number] and his s/o Valeria regarding the pt's wishes. The pt himself continues to say, "Do everything", and "I'm not ready to go yet" when discussions about goals of care arise. However, the family are also aware that pt is not longer a liver or kidney transplant consideration and understand attempts to resuscitate Jarad in his current state of health would be futile. The family, along with his S/O of over 40 years, ask that if and when Vitor becomes confused and/or unable to make his own decisions, he be made comfort care. Dr. Fernández, tree surgeon helper Toby and bedside AYAN Mansfield also aware.
--- NOTE | 2023-09-18 18:35 | NUR ---
SUMMARY: PAPI CONTINUES ON NOREPINEPHRINE @ 10MCG/MIN. TRYING TO KEEP MAP >50. HIS HEART RATE HAS BEEN RUNNING >150 FOR THE MAJORITY OF THE DAY, BEING TREATED WITH BOTH DILTIAZEM 15MG AND DIGOXIN 0.5 MG, MINIMAL RELIEF INITIALLY. FAMILY WAS CALLED IN TO "SEE HIM IF YOU WANT HIM COHERENT" BY DEB HIS S/O. MULTIPLE FAMILY MEMBERS HAVE VISITED T/O THE AFTERNOON AND IT HAS BROUGHT PT'S HR DOWN TO LOW 100S. THE NGT WAS REPLACED EARLY BY STUDENT, SEE OTHER NOTE. HE HAS CONTINUED TO HAVE OVER 2L OF OUTPUT. HIS SPIRITS HAVE IMPROVED SINCE THE FAMILY VISIT.
--- NOTE | 2023-09-18 20:18 | NUR ---
DEONTE IS CONTINUING TO BE APPROPRIATE, LEVO REMAINS @ 10MCG/MIN, NGT CONTINUES AT LIS WITH GREEN/BROWN RETURN, PT DENIES ANY COMPLAINTS AT THIS TIME. LOTS OF TEACHING ABOUT HIS STOMACH BEING DISTENDED AND NOT HIS ABDOMEN AND THE DIFFER- ENCES OF THOSE. HE UNDERSTANDS THE NEED FOR THE NGT AND IS APPRECIATIVE. UNDERSTANDS THAT THE BOWEL RELAXES THAT IT MAY BE AN OPTION FOR FEEDINGS. PT WILL BE EVAL IN AM TO SEE IF NEEDS DIALYSIS TOMORROW.
[2023-09-19] VITALS (103 sets, daily range): BP systolic 55–110; BP diastolic 12–86
[2023-09-19 04:43] LABS: BASOPHILS ABSOLUTE AUTO 0.02 K/mm3 (0.00-0.23); BASOPHILS PERCENT AUTO 0 % (0-2); EOSINOPHILS ABSOLUTE AUTO 0.05 K/mm3 (0.00-0.68); EOSINOPHILS PERCENT AUTO 0 % (0-6); IMMATURE GRAN ABSOLUTE AUTO 0.14 K/mm3 (0.00-0.10); IMMATURE GRAN PERCENT AUTO 1 % (0-1); LYMPHOCYTES ABSOLUTE AUTO 0.85 K/mm3 (0.84-5.20); LYMPHOCYTES PERCENT AUTO 6 % (21-46); MONOCYTES ABSOLUTE AUTO 0.92 K/mm3 (0.16-1.47); MONOCYTES PERCENT AUTO 6 % (4-13); Mean Corpuscular HGB 34.4 pg (26.0-34.0); Mean Corpuscular HGB Conc 30.9 g/dL (31.5-36.5); Mean Platelet Volume 11.5 fL (9.1-12.4); NEUTROPHILS ABSOLUTE AUTO 12.97 K/mm3 (1.96-9.15); NEUTROPHILS PERCENT AUTO 87 % (41-73); NRBC ABSOLUTE 0.02 K/mm3 (0.00-0.02); NRBC Auto 0.1 /100 WBC (0.0-0.2); Platelet Count 68 K/mm3 (150-400); RDW Coefficient Variation 25.6 % (11.7-14.2); RDW Standard Deviation 103.6 fL (35.1-46.3); Red Blood Cell Count 1.57 M/mm3 (4.30-5.90); White Blood Cell Count 14.95 K/mm3 (4.00-11.30)
[2023-09-19 04:44] LABS: Mean Corpuscular Volume 112 fL (80-100)
[2023-09-19 04:46] LABS: Hematocrit 17.5 % (37.0-53.0); Hemoglobin 5.4 g/dL (13.5-17.5)
[2023-09-19 05:47] LABS: Alanine Aminotransfer (ALT/SGP 41 U/L (12-78); Albumin/Globulin Ratio 1.7 (0.8-1.8); Alk Phos 52 U/L (50-136); Aspartate Aminotrans (AST/SGOT 161 U/L (12-37); Bilirubin, Direct 4.3 mg/dL (0.0-0.3); Bilirubin, Indirect 4.7 mg/dL (0.1-0.7); Blood Urea Nitrogen 72 mg/dL (8-24); Bun/Creatinine Ratio 10.9 (12.0-20.0); Calcium, Blood 9.6 mg/dL (8.5-10.1); Chloride, Blood 94 mmol/L (98-108); Creatinine, Blood 6.59 mg/dL (0.60-1.20); Digoxin (Lanoxin) 1.02 ug/mL (0.80-2.00); Globulin, Blood 2.4 g/dL (2.2-4.0); Glomerular Filtration Rate 9 (60-); Glucose, Blood 156 mg/dL (70-99); Magnesium, Blood 2.6 mg/dL (1.6-2.4); Potassium, Blood 5.1 mmol/L (3.5-5.5); Sodium, Blood 131 mmol/L (136-145); Total Protein, Blood 6.4 g/dL (6.4-8.2)
[2023-09-19 05:55] LABS: Anion Gap 31 mmol/L (6-16); CO2, Blood 6 mmol/L (21-32); Phosphorus, Blood 8.9 mg/dL (2.5-4.9)
[2023-09-19 07:00] LABS: PCO2 Arterial 18.8 mmHg (35-45); PO2 Arterial 44 mmHg (80-100); pH Blood Arterial 7.19 (7.35-7.45)
--- NOTE | 2023-09-19 07:35 | NUR ---
PATIENT AOX4 BUT REPORTS INTERMITTENTLY HAVING VISUAL HALLUCINATIONS. SR/ST. LEVOPHED AND VASOPRESSIN GTT INFUSING BUT PATIENT REMAINS HYPOTENSIVE. PLACED ON 4L NC. NGT CLAMPED PER DR CHAVIS REQUEST D/T BLOODY OUTPUT. PATIENT HAD 3 LOOSE BOWEL MOVEMENTS OVERNIGHT. ANURIC. 1 AMP OF D50 GIVEN FOR LOW BG. HG 5.4, 1 UNIT OF RBC'S ORDERED AND INFUSING. PATIENT'S BROTHER AT BEDSIDE.
--- NOTE | 2023-09-19 08:05 | NUR ---
ASSUMED CARE: REPORT RECEIVED FROM ZAIRE Spence RN. ASSUMED CARE OF THIS PT AT APPROX 0700. ON ASSESSMENT, THE PT IS AWAKE W/ VISITOR AT BEDSIDE. HIS SPEECH IS SOMEWHAT DIFFICULT TO UNDERSTAND BUT HE IS OVERALL ORIENTED TO SELF, PERSON & PLACE. LS ARE CLEAR T/O, PT ON 4L NC W/ O2 SATS > 92% ON AVG, IT IS DIFFICULT TO OBTAIN ACCURATE SPO2 READINGS AT TIMES R/T POOR PERFUSION. MONITOR SHOWS SR W/ HR 80-90s, PERSISTANT HYPOTENSION W/ LEVOPHED & VASOPRESSIN INFUSING - SEE FLOWSHEET. PULSES FAINT T/O. NGT IN PLACE TO LEFT NARE, LIS IN USE W/ SMALL AMNTS DARK BILE OUTPUT NOTED. PT NPO R/T ILEUS, NOW PASSING SMALL AMNTS OF LOOSE STLS PER USER EXPERIENCE RESEARCHER RN REPORT. PT ANURIC. SKIN CONDITION OVERALL FRAGILE, JAUNDICED. NUMEROUS AREAS OF ECCHYMOSIS SCATTERED T/O. Q2H REPOSITIONING COMPLETED BY PT W/ MIN ASSIST & VERBAL CUES. WILL CONTINUE TO MONITOR & UPDATE NEEDED.
--- NOTE | 2023-09-19 10:30 | NUR ---
DR CUENCA: PROVIDER HAS BEEN AT BEDSIDE THIS AM TO EVAL PT. DISCUSSED PERSISTANT LOW BP READINGS DESPITE LEVOPHED INFUSING AT 25 MCG/MIN & VASOPRESSIN INFUSING AT 0.04 UNITS/MIN. HE STS THAT MAP GOAL IS > 50, BUT IF THE PT CONTINUES TO MENTATE WELL THERE IS NO NEED TO ESCALATE CARE. HE HAS DISCUSSED THE PT's POOR PROGNOSIS W/ THE PT & HIS SIGNIFICANT OTHER, DEB. 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 PT BEING DIALYZED NOW, 3RD UNIT BLOOD TRANSFUSING W/ H&H REDRAWS Q6H. NO OTHER CHANGES AT THIS TIME.
--- NOTE | 2023-09-19 11:09 | NUR ---
Spiritual Care Visit Attempted. Pt. is awake in bed and welcomes my visit. SO is present. After cordial introductions, the Pt. verbalized that is spritual life was personal and private and he declined any further enagagement. Pt. gave permission for this agile business analyst to pray for him privately, and I have done so.
[2023-09-19 11:25] LABS: Hematocrit 21.2 % (37.0-53.0); Hemoglobin 7.4 g/dL (13.5-17.5)
--- NOTE | 2023-09-19 15:00 | NUR ---
UPDATE: NGT UNCLAMPED & AGAIN PLACED TO LIS. WITHIN APPROX 40 MINS, THERE IS ROUGHLY 250 ML BERNABE RED OUTPUT NOTED IN CANISTER. DR CUENCA HAS BEEN UPDATED, ORDERS PLACED TO RECHECK H&H & COAGS. DR CUENCA HAS CONTACTED DR CHAVIS, PROVIDER PLANS TO BE AT BEDSIDE TO DISCUSS POC W/ THE PT & HIS FAMILY SOON.
[2023-09-19 15:40] LABS: Hematocrit 16.8 % (37.0-53.0); Hemoglobin 5.6 g/dL (13.5-17.5)
--- NOTE | 2023-09-19 15:50 | NUR ---
DR CHAVIS: PROVIDER TO BEDSIDE THIS AFTERNOON TO SPEAK W/ PT & HIS FAMILY. UPDATED HIM ON ACTIVE BLEEDING & RESULTED CRITICAL LOW H&H. 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 DR CHAVIS STS THAT IF THE PT WOULD LIKE A SMALL AMNT OF PO INTAKE FOR COMFORT, THAT WOULD BE OKAY. DR CHAVIS PLANS TO SEE THE PT AGAIN AFTER HIS SCHEDULED PROCEDURES.
--- NOTE | 2023-09-19 16:59 | NUR ---
"Spiritual Care Visit | Nurse request. Pt. is awake and welcomes my visit. Pt. displays some evidence of confusion regarding his prognosis. Prayed with the PtJosh alvarado this morning he requested that I not. Pt. displays evidence of having a calmer spirit. Family and friends present verbalize gratitude for the spiritual care visit."
[2023-09-19 17:10] LABS: Prothrombin Time Results >90.0 Sec (9.7-11.5)
[2023-09-19 17:18] LABS: International Normalized Ratio >10.00
[2023-09-19 17:20] LABS: Fibrinogen <50 mg/dL (170-430)
--- NOTE | 2023-09-19 18:40 | NUR ---
SHIFT SUMMARY: PT's MENTATION HAS DECLINED T/O THE SHIFT. HE IS ABLE TO MAKE HIS NEEDS KNOWN BUT IS MORE DIFFICULT TO UNDERSTAND W/ SLURRED SPEECH & INCREASING SOMNOLENCE. HIS SIGNIFICANT OTHER, DEB, HAS SPOKEN W/ DR CUENCA & VERBALIZED THAT SHE KNOWS HE IS DYING & MAY NOT MAKE IT THROUGH THE NIGHT. HE HAS UPDATED HER THAT THE LATEST LABS REFLECT POOR CLOTTING FACTORS WHICH IS WHY THE PT IS BLEEDING SO PROFUSELY FROM NGT & CENTRAL LINE SITES. ORDERS OBTAINED FOR ADDITIONAL BLOOD PRODUCTS IN ORDER TO HONOR THE PT's WISHES FOR ALL ATTEMPTS TO BE MADE TO SAVE HIS LIFE, LABS TO BE COMPLETED ONCE ORDERED BLOOD PRODUCTS ARE TRANSFUSED. LS REMAINS CLEAR, PT ON 4L NC W/ O2 SATS > 92%. MONITOR SHOWS SR W/ HR 90s, PERSISTANT HYPOTENSION W/ LEVOPHED & VASOPRESSIN INFUSING. NGT TO LIS DRAINING BERNABE RED/ MAROON BLOOD NOTED IN TUBING & CANISTER. NO BM THIS SHIFT. PT ANURIC R/T HD. SKIN OVERALL JAUNDICED & FRAGILE, Q2H REPOSITIONING TO MAINTAIN SKIN INTEGRITY. WILL CONTINUE TO MONITOR & REPORT OFF TO ONCOMING RN.
--- NOTE | 2023-09-19 20:28 | NUR ---
ASSUMED CARE CARE WAS ASSUMED OF PT AT 1900, REPORT GIVEN BY ANNALISA BOTELLO. PT A/0 X2-3. PT ABLE TO SAY HE IS IN [place] AND HIS . PT UNABLE TO SAY WHAT YEAR IT IS. PT ABLE TO MAKE NEEDS KNOWN, BUT IS DIFFICULT TO UNDERSTAND D/T PT BEING SOFT SPOKEN AND MUMBLING. PT ON 4 L N/C, O2 SATS > 95%. PT ON CONTINUOUS CARDIAC MONITORING. NSR OBSERVED ON MONITOR. BP HYPOTENSIVE. LEVOPHED 4X AND VASOPRESSIN INFUSING, SEE FLOWSHEET. HR 90s. MAP IN 50s, PROVIDER AWARE. NGT IN PLACE, SET TO LOW-INTERMITTENT SUCTION. RED/BROWN DRAINAGE NOTED. PROTONIX, SODIUM BICARB INFUSING. CRYO STARTED AT SHIFT CHANGE. FAMILY AT BEDSIDE.
[2023-09-19 20:36] LABS: Albumin, Blood 3.3 g/dL (3.4-5.0); Anion Gap 21 mmol/L (6-16); Blood Urea Nitrogen 48 mg/dL (8-24); Bun/Creatinine Ratio 10.6 (12.0-20.0); CO2, Blood 22 mmol/L (21-32); Calcium, Blood 8.4 mg/dL (8.5-10.1); Chloride, Blood 91 mmol/L (98-108); Creatinine, Blood 4.51 mg/dL (0.60-1.20); Glomerular Filtration Rate 14 (60-); Glucose, Blood 159 mg/dL (70-99); Sodium, Blood 134 mmol/L (136-145)
[2023-09-19 20:37] LABS: Phosphorus, Blood 4.6 mg/dL (2.5-4.9)
[2023-09-20] VITALS (11 sets, daily range): BP systolic 66–105; BP diastolic 43–90
[2023-09-20 00:41] LABS: Mean Platelet Volume 10.7 fL (9.1-12.4)
[2023-09-20 00:56] LABS: Hematocrit 17.4 % (37.0-53.0); Hemoglobin 5.9 g/dL (13.5-17.5); Platelet Count 32 K/mm3 (150-400)
[2023-09-20 01:16] LABS: Glucose, Blood 161 mg/dL (70-99)
[2023-09-20 01:31] LABS: International Normalized Ratio 3.45
[2023-09-20 01:35] LABS: Prothrombin Time Results 33.8 Sec (9.7-11.5)
--- NOTE | 2023-09-20 02:46 | NUR ---
TRANSITION TO COMFORT CARE THROUGHOUT THE NIGHT PT BECAME PROGRESSIVELY MORE CONFUSED. PT A/O TO SELF AND OCCASIONALLY ABLE TO FOLLOW COMMANDS. PT DIFFICULT TO REDIRECT AND BECAME INCREASINGLY MORE UNCOMFORTABLE. DR. CUENCA WAS CALLED AND NOTIFIED OF PT STATUS WITH LABS. THIS RN HAD DISCUSSION WITH PT'S FAMILY REGARDING GOALS OF CARE FOR PT. DECISION MADE TO MOVE PT TO COMFORT CARE. RESTRAINTS REMOVED AT 0238. ALL INFUSIONS PUT ON STANDBY AND DISCONNECTED FROM PT 0240. NGT REMOVED BY PT. FAMILY AT PT'S BEDSIDE. MEDICATING PT PER EMAR.
--- NOTE | 2023-09-20 06:15 | NUR ---
SHIFT SUMMARY PT WAS TRANSITIONED TO COMFORT CARE THIS SHIFT. SEE PREVIOUS NOTE. PT CURRENTLY RESTING COMFORTABLY, FAMILY AT BEDSIDE. PT HAS BEEN MEDICATED FOR AGITATION.
--- NOTE | 2023-09-20 06:54 | NUR ---
FAMILY AT BEDSIDE. PT PASSED AT 0652.
== END 2023-09-20 10:30 | DRG 871 ==
LOC: ER 10:27 → PCU 12:46 → ICUE 12:46 → PCU 15:15 → ICUE 09-09 13:54
PROVIDERS: Internal Medicine; Internal Medicine Critical Care Medicine; Internal Medicine Nephrology; Student in an Organized Health Care Education/Training Program; ADMIT Internal Medicine
PROC: 0W9G3ZZ Drainage of Peritoneal Cavity, Percutaneous Approach (ICD-10-PCS; principal; 2023-09-08)
PROC: 3E03329 Introduction of Other Anti-infective into Peripheral Vein, Percutaneous Approach (ICD-10-PCS; 2023-09-08)
PROC: 3E033XZ Introduction of Vasopressor into Peripheral Vein, Percutaneous Approach (ICD-10-PCS; 2023-09-09)
PROC: 5A1D70Z Performance of Urinary Filtration, Intermittent, Less than 6 Hours Per Day (ICD-10-PCS; 2023-09-10)
PROC: 30233N1 Transfusion of Nonautologous Red Blood Cells into Peripheral Vein, Percutaneous Approach (ICD-10-PCS; 2023-09-10)
PROC: 0W9G3ZZ Drainage of Peritoneal Cavity, Percutaneous Approach (ICD-10-PCS; 2023-09-12)
PROC: B24BZZZ Ultrasonography of Heart with Aorta (ICD-10-PCS; 2023-09-17)
DX: A40.8 Other streptococcal sepsis (principal); E43 Unspecified severe protein-calorie malnutrition; R65.21 Severe sepsis with septic shock; N18.6 End stage renal disease; K65.2 Spontaneous bacterial peritonitis; E87.20 Acidosis, unspecified; Z51.5 Encounter for palliative care; Z66 Do not resuscitate; E87.1 Hypo-osmolality and hyponatremia; D68.8 Other specified coagulation defects; I48.92 Unspecified atrial flutter; K56.0 Paralytic ileus; K92.2 Gastrointestinal hemorrhage, unspecified; K76.82 Hepatic encephalopathy; R57.1 Hypovolemic shock; K70.31 Alcoholic cirrhosis of liver with ascites; K72.10 Chronic hepatic failure without coma; K64.9 Unspecified hemorrhoids; D63.1 Anemia in chronic kidney disease; E87.70 Fluid overload, unspecified; I95.1 Orthostatic hypotension; F10.21 Alcohol dependence, in remission; I48.0 Paroxysmal atrial fibrillation; D69.6 Thrombocytopenia, unspecified; E83.39 Other disorders of phosphorus metabolism; E88.09 Other disorders of plasma-protein metabolism, not elsewhere classified; E83.41 Hypermagnesemia; K31.84 Gastroparesis; Z87.891 Personal history of nicotine dependence; Z99.2 Dependence on renal dialysis; Z68.27 Body mass index [BMI] 27.0-27.9, adult
CPT/HCPCS: 36415; 36430; 36556; 36600; 49083; 71045; 74018; 74019; 74176; 76770; 80048; 80053; 80069; 80162; 80202; 82140; 82248; 82330; 82533; 82803; 82947; 83605; 83735; 84100; 85014; 85018; 85025; 85049; 85384; 85610; 85730; 86850; 86900; 86901; 86923; 87040; 87070; 87205; 89051; 93005; 93010; 93306; 94762; 96365; 96366; 96367; 99285-25; A9270; C1751; C9113; J0696; J0780; J0881; J1160; J1630; J2060; J2185; J2405; J3010; J3370; J7030; J7050; J7060; J7070; P9012; P9016; P9046; P9047; P9059